=== PATIENT | male | born 1935 | race Caucasian/White ===

== ENCOUNTER 2023-03-07 07:04 | Inpatient (IN) | payer MEDICARE, OTHER ==
[~2023-03-07] VITALS: Ht 170 cm; Wt 77.2 kg
--- NOTE | 2023-03-07 07:04 | PM&R Post Admission Assessment ---
PM&R Date of Visit: Mar 07, 2023 Time of Visit: 12:30 History of Present Illness Chief complaint: Critical illness myopathy HPI: This is an 87-year-old male clinic patient of Dr Ortiz Zepeda in [place] who presents from [facility] following an extensive hospital stay which include acute hypoxic respiratory failure secondary to COVID with bilateral infiltrates status post intubation until extubated on 02/02/2023 transition to BiPAP who presents to the inpatient rehab unit in need of aggressive rehab. He has a history of esophageal stenosis with stricture status post EGD and dilatation on 12/10/2022. He is eating a regular diet. He does have a history of ischemic colitis but that seems to be stable. He does have atrial fibrillation on amiodarone and anticoagulation. Prior level of functioning was independent without any AD but currently he will require aggressive rehab in order to return back to somewhat near baseline. He is currently using oxygen. Past Wvospff-Nifjal-Pafknu Hx Past Med/Social Hx: Reviewed Nursing Past Med/Soc Hx, Reviewed and Corrections made Patient Social History Marrital Status: single Employed/Student: retired Alcohol Use: Denies Use Smoking Status: Never a Smoker Past Medical History Respiratory: Pneumonia Cardiac: Atrial Fibrillation, Chronic Edema/Swelling PM&R Allergy/Meds/Data Review Allergies Coded Allergies: No Allergy Information Available (Unverified , 03/07/23) Home Medications Scheduled Apixaban (Eliquis), 5 MG PO BID, (Reported) Metoprolol Tartrate (Lopressor), 25 MG PO Q8H, (Reported) Midodrine HCl (Midodrine HCl), 10 MG PO PRN Olanzapine (Zyprexa), 5 MG PO PRN Q 8 hrs Pantoprazole Sodium (Protonix), 40 MG PO DAILY, (Reported) Miscellaneous Medications Amiodarone HCl (Amiodarone HCl), 200 MG PO, (Reported) Lactobacillus Acidophilus/Pect (Acidophilus-Pectin Capsule), 1 EACH PO, (Reported) Mv-Mn/FA/Coq10/Lycopene/Lutein (Theragran-M Premier 50+ Caplet), 1 EACH PO, (Reported) Current Medications Current Medications Reviewed Review of Systems Constitutional: see HPI, malaise, weakness EENTM: no symptoms reported Respiratory: dyspnea on exertion, short of breath Cardiovascular: no symptoms reported Gastrointestinal: no symptoms reported Genitourinary: no symptoms reported Musculoskeletal: no symptoms reported Skin: no symptoms reported Psychiatric/Neurological: Anxiety, Depressed All Other Systems Reviewed Negative Unless Noted: Yes Physical Exam Physical Exam Vital Signs Capillary Refill : Height, Weight, BMI Height: '" Weight: lbs. oz. kg; BMI Method: General Appearance: No Apparent Distress, WD/WN, Chronically ill, Thin Eyes: Bilateral Eye Normal Inspection, Bilateral Eye PERRL HEENT: PERRL/EOMI, Normal ENT Inspection, Pharynx Normal Neck: Full Range of Motion, Normal Inspection, Non Tender, Supple, Carotid Bruit Respiratory: Chest Non Tender, Lungs Clear, No Accessory Muscle Use, No Respiratory Distress, Decreased Breath Sounds Cardiovascular: Regular Rate, Rhythm, No Edema, No Gallop, No JVD, No Murmur, Normal Peripheral Pulses Gastrointestinal: Normal Bowel Sounds, No Organomegaly, No Pulsatile Mass, Non Tender, Soft Back: Normal Inspection, No CVA Tenderness, No Vertebral Tenderness Extremity: Normal Capillary Refill, Normal Inspection, Normal Range of Motion, Non Tender, No Calf Tenderness, No Pedal Edema Neurologic/Psychiatric: Alert, Oriented x3, No Motor/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, 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 Norm as Tested, Abnormal Gait, Depressed Affect, Motor Weakness (Severe weakness of all extremities 3/5) Skin: Normal Color, Warm/Dry Lymphatic: No Adenopathy PM&R Medical Assessment & Plan REHAB/MEDICAL ASSESSMENT AND PLAN: REHAB IMPAIRMENT GROUP: Critical illness myopathy ETIOLOGIC DIAGNOSIS: Critical illness myopathy The comorbidities that impact the patients function and/or functional outcome by: atrial fibrillation, history of GI bleed, recent COVID, oxygen sup plementation required REHAB PLAN: The patient is being admitted to our comprehensive inpatient rehabilitation faci lity and can tolerate the intensity of service consisting of at least: 180 minutes of therapy a day, 5 out of 7 days a week Rehab treatment will consist of: PT and OT will focus on regaining function with use of assistive devices in order to increase stamina with ambulation and increased independence in ADLs and wean oxygen The patient/family has a good understanding of our discharge process and will benefit from an interdisciplinary inpatient rehabilitation program. The patient has potential to make improvement and is in need of at least two of the following multidisciplinary therapies including but not limited to physical, occupational, speech, and prosthetics and orthotics. Additionally the patient will need services from respiratory, nutritional services, wound care, psychology, etc. (Customize this to each patient). Given the patients complex condition and risk of further medical complications, rehabilitation services cannot be safely or effectively provided at a lower level of care such as a senior living facility. BARRIERS TO DISCHARGE: severe weakness ESTIMATED LOS: 10 days DISPOSITION: home RELEVANT CHANGES SINCE PREADMISSION SCREENING: I have compared the patients medical and functional status at the time of the preadmission screening and there are: no changes PROGNOSIS: good REHABILITATION GOALS: 1. PT and OT will focus on regaining function with use of assistive devices in order to increase stamina with ambulation and increased independence in ADLs and wean oxygen All the above goals were reviewed with the patient and he/she is in agreement. By signing this document, I acknowledge that I have personally performed a full physical examination on this patient within 24 hours [facility] and have determined the patient to be able to tolerate the above course of treatment at an intensive level for a reasonable period of time. I will be completing a detailed individualized Plan of Care for this patient by day #4 of the patients stay based upon the Preadmission Screen, the Post-Admission Evaluation, and the therapy evaluations. 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
[2023-03-07] MEDS ORDERED: ALPRAZolam 0.25 MG (XANAX) TAB PO PRN (07:15)
[2023-03-07] MEDS ORDERED: ACETAMINOPHEN 325 MG TABLET PO PRN (07:15)
[2023-03-07] MEDS ORDERED: DOCUSATE SODIUM 100 MG (COLACE) CAP PO PRN (07:15)
[2023-03-07] MEDS ORDERED: CALCIUM CARBONATE 500 MG (TUMS) TAB.CHEW PO PRN (07:15)
[2023-03-07] MEDS ORDERED: FLEET ENEMA ADULT 1 EA BTL PR PRN (07:15)
[2023-03-07] MEDS ORDERED: LOPERAMIDE 2 MG (IMODIUM) TABLET PO PRN (07:15)
[2023-03-07] MEDS ORDERED: BISACODYL 10 MG SUPP (DULCOLAX) PR PRN (07:15)
[2023-03-07] MEDS ORDERED: guaiFENesin/CODEINE (ROBITUSSIN AC) 10ML UDC PO PRN (07:15)
[2023-03-07] MEDS ORDERED: LACTULOSE SYRUP 10GM/15ML (ENULOSE) 30ML UDC PO PRN (07:15)
[2023-03-07] MEDS ORDERED: diphenhydrAMINE 25 MG TAB (BENADRYL) PO PRN (07:15)
[2023-03-07] MEDS ORDERED: MELATONIN 3 MG TABLET PO PRN (07:15)
[2023-03-07] MEDS ORDERED: ONDANSETRON 4 MG (ZOFRAN) ORAL DISSOLVE TAB PO PRN (07:15)
--- OUTSIDE RECORDS SUMMARY | 2023-03-07 08:01 | XMS REPORT ---
Author Author Department [facility] ROBBI hartley Organization Department of [facility] rs Address Unknown Phone Unavailable Support Name Relationship Address Phone [place] Next Of Kin Unknown LETTY GARIBAY ECON Unknown Insurance Providers: All historical and current Section Date Range: From patient's date of to the date document was create d. This section includes the names of all active insurance providers for the [place] Insurance Provider Type of Coverage Plan Name Start of Policy Co verage End of Policy Coverage Group Number Member ID Insurance Provider's Telephone N umber Policy Perez's Name Patient's Relationship to Policy Perez MEDICARE (WNR) MEDICARE (M) PART A Jul 08, 1998 PART A [id number] [phone] THU GARIBAY PATIENT MEDICARE (WNR) MEDICARE (M) PART B Jul 08, 1998 PART B [id number] [phone] THU GARIBAY PATIENT MEDICARE (WNR) MEDICARE (M) PART A Jul 08, 1998 PART A [id number] THU GARIBAY PATIENT MEDICARE (WNR) MEDICARE (M) PART B Jul 08, 1998 PART B [id number] THU GARIBAY PATIENT MEDICARE (WNR) MEDICARE (M) PART B Jul 08, 1998 PART B [id number] [phone] GARIBAYROBBI CLEMENT PATIENT MEDICARE (WNR) MEDICARE (M) PART A Jul 08, 1998 PART A [id number] [phone] ROBBI GARIBAY PATIENT [id number] FOR LIFE Nov 02, 2008 [facility] CARE FOR LIFE [id number] ROBBI GARIBAY PATIENT [id number] MTF DIRECT CARE Nov 02, 2008 [facility] DIRECT CARE [id number] ROBBI GARIBAY PATIENT Selected Encounter This section includes the information on record at MD for the Encounter. Date/Time Encounter Type Encounter Description Reason Provider Source Mar 18, 2022 11:15 AM Outpatient Encounter PRIMARY CARE/MEDICINE IHE Encounter Template Text not used by MD Assessments - Encounter Diagnoses No Data Provided for This Section Plan of Treatment: Future Appointments (+ 6 months) and Future Tests (+/- 45 day s) The Plan of Treatment section includes future care activities for the p atient from all MD treatment facilities. This section includes future appointmen ts and future orders which are active, pending or scheduled. Future Appointments This section includes appointments that were scheduled t o occur 6 months from the date of the Encounter, up to a maximum of 20 appointme nts. The data comes from all MD treatment facilities. Appointment Date/Time Appointment Type Appointment Facili ty Name Mar 20, 2022 08:15 AM AMBULATORY - NONE [facility] Mar 20, 2022 11:00 AM AMBULATORY - MEDICINE [facility] Sep 18, 2022 08:30 AM AMBULATORY [facility] Sep 18, 2022 09:30 AM AMBULATORY MEDICINE [facility] Sep 18, 2022 10:30 AM [facility] MEDICINE [facility] Surgical Procedures: All associated to the encounter No Data Provided for This Section Lab Results: +/- 30 days of the encounter This section includes the Chemistry and Hematology Lab R esults on record with MD for the patient. Radiology Reports and Pathology Report s are provided separately, in subsequent sections. Lab Results This section contains the Chemistry/Hematology Results gm t were resulted 30 days before or 30 days after the date of the Encounter. Date/Time Source Result Type Result - Unit Interpretation Reference Range Comment Mar 20, 2022 09:30 AM [facility] URINALYSIS Specimen Type: URINE No comment entered. Ordering Provider: TITUS MARIN Report Released Date/Time: Mar 20, 2022 08:18 AM Reporting Lab: [address] [id number] Performing Lab: [address] [address] UA COLOR STRAW COLORLESS-YELLOW UA SPEC GRAV 1.014 1.005-1.035 UA PH 6.0 5-9 UA NITRITE NEG Neg.-Neg UA UROBILINOGEN <2.0 -Normal: <2 mg -dL UA APPEARANCE - CLEAR UA GLUCOSE NORMAL NEG-TRACE UA PROTEIN - NEG UA BILI - NEG UA BLOOD - NEG-TRACE UA KETONES - NEG-TRACE UA LEUK EST NEG. NEG-74 Mar 20, 2022 07:56 AM [facility] TSH (FV) Specimen Type: SERUM No comment entered. Ordering Provider: TITUS MARIN Report Released Date/Time: Mar 18, 2022 12:47 PM Reporting Lab: [facility] [address] [place] [address] Performing Lab: [facility] [address] [place] [address] TSH () 2.33 0.45-5.33 Mar 20, 2022 07:56 AM [facility] LIPID PROFILE () Specimen Type: SERUM No comment entered. Ordering Provider: TITUS MARIN Report Released Date/Time: Mar 18, 2022 12:47 PM Reporting Lab: [address] [phone] Performing Lab: [address] [address] CHOLESTEROL, TOTAL (FV) 179 118-20 0 TRIGLYCERIDE (FV) 53 <150 LDL CHOLESTEROL (CALCULATED) 123 S ee_Comment HDL CHOLESTEROL (FV) 45 >40 Mar 20, 2022 07:56 AM [facility] CBC (FV) Specimen Type: BLOOD No comment entered. Ordering Provider: TITUS MARIN Report Released Date/Time: Mar 18, 2022 12:47 PM Reporting Lab: [address] [phone] Performing Lab: [address] [address] RDW (FV) 13.9 11.5-14.5 HCT (FV) 42.7 40-52 HGB (FV) 14.5 13-18 PLT (FV) 154 150-440 WBC (FV) 5.7 3.8-10.6 RBC (FV) 4.61 4.4-5.9 MCV (FV) 92.7 80-100 MCH (FV) 31.5 26-34 MCHC (FV) 34.0 32-36 NE% (FV) 56.0 SEE ABSOLUTE # NE# (FV) 3.2 2.4-7.6 LY% (FV) 22.2 SEE ABSOLUTE # LY# (FV) 1.3 1.0-4.8 MO% (FV) 16.4 SEE ABSOLUTE # MO# (FV) 0.9 0.1-1.0 EO% (FV) 4.4 SEE ABSOLUTE # EO# (FV) 0.2 0.0-0.4 BA% (FV) 1.0 SEE ABSOLUTE # BA# (FV) 0.1 0.0-0.2 Mar 20, 2022 07:56 AM [facility] RENAL+LIVER PROFILE Specimen Type: SERUM No comment entered. Ordering Provider: TITUS MARIN Report Released Date/Time: Mar 18, 2022 12:47 PM Reporting Lab: [address] [id number] Performing Lab: [address] [address] GLUCOSE (FV) 96 70-110 ALBUMIN (FV) 4.2 3.4-5.0 AST (FV) 20 15-37 TOTAL BILIRUBIN (FV) 1.13 0.3-1.2 CHLORIDE (FV) 103 98-107 TOTAL PROTEIN (FV) 7.3 6.1-7.9 SODIUM (FV) 136 136-145 POTASSIUM (FV) 4.5 3.5-5.1 CO2 (FV) 25 21-32 UREA NITROGEN (FV) 13 6-20 CALCIUM (FV) 9.2 8.9-10.3 ALT (FV) 14 0-63 ALK. PHOS. (FV) 62 32-126 CREATININE (FV) 0.64 .61-1.24 eGFR (CKD-EPI 2020) >90 >90 Mar 20, 2022 07:56 AM [facility] VITAMIN B12 Specimen Type: SERUM No comment entered. Ordering Provider: TITUS MARIN Report Released Date/Time: Mar 18, 2022 12:47 PM Reporting Lab: [place] [facility] [address] [facility] [address] Performing Lab: [facility] [address] [place] [address] VITAMIN B12 (FV) 322 180-914 Vital Signs: All taken on the encounter date No Data Provided for This Section Immunizations: All administered on the encounter date No Data Provided for This Section Social History: Smoking Status (Most current) and Tobacco Use (All prior to enco unter date) No Data Provided for This Section Advance Directives: All historical and current No Data Provided for This Section Radiology Reports: +/- 30 days of the encounter No Data Provided for This Section Pathology Reports: +/- 30 days of the encounter No Data Provided for This Section Encounter Notes: All associated encounter notes This section contains the clinical notes associated to the Encounter. Date/Time Encounter Note(s) Provider Source Mar 18, 2022 11:15 AM ADMINISTRATIVE NOTE: LOCAL TITLE: ADMINISTRATIVE NOTE STANDARD TITLE: ADMINISTRATIVE NOTE DATE OF NOTE: MAR 18, 2022@11:15 ENTRY DATE: MAR 18, 2022@11:15:09 AUTHOR: NU DELGADO EXP COSIGNER: URGENCY: STATUS: COMPLETED is scheduled for fasting labs 03/20/22-- needing lab orders placed, please and thank you /loki/ NU DELGADO Signed: 03/18/2022 11:15 Receipt Acknowledged By: * AWAITING SIGNATURE * TITUS MARIN TANYA [facility]
--- OUTSIDE RECORDS SUMMARY | 2023-03-07 08:02 | XMS REPORT | Encounter Summary ---
Author Author Department [facility] ROBBI hartley Organization Department of [facility] rs Address Unknown Phone [...] PART A Jul 08, 1998 PART A [id number] [phone] THU GARIBAY PATIENT MEDICARE (WNR) MEDICARE (M) PART B Jul 08, 1998 PART B [id number] [phone] THU GARIBAY PATIENT MEDICARE (WNR) MEDICARE (M) PART A Jul 08, 1998 PART A [id number] THU GARIBAY PATIENT MEDICARE (WNR) MEDICARE (M) PART B Jul 08, 1998 PART B [id number] THU GARIBAY PATIENT MEDICARE (WNR) MEDICARE (M) PART B Jul 08, 1998 PART B [id number] 57A [phone] GARIBAYROBBI CLEMENT PATIENT MEDICARE (WNR) MEDICARE (M) PART A Jul 08, 1998 PART A [id number] [phone] ROBBI GARIBAY PATIENT [id number] FOR LIFE Nov 02, 2008 [facility] CARE FOR LIFE [id number] ROBBI GARIBAY PATIENT [id number] MTF DIRECT CARE Nov 02, 2008 [facility] DIRECT CARE [id number] ROBBI GARIBAY PATIENT Selected Encounter This section includes the information on record at [place] for the Encounter. Date/Time Encounter Type Encounter Description Reason Provider Source Mar 20, 2022 12:00 AM Outpatient Encounter EVENT (HISTORICAL) IHE Encounter Template Text not used by [place] Assessments - Encounter Diagnoses No Data Provided for This Section Plan of Treatment: Future Appointments (+ 6 months) and Future Tests (+/- 45 day s) The Plan of Treatment section includes future care activities for the p atient from all [place] treatment facilities. This section includes future appointmen ts and future orders which are active, pending or scheduled. Future Appointments This section includes appointments that were scheduled t o occur 6 months from the date of the Encounter, up to a maximum of 20 appointme nts. The data comes from all [place] treatment facilities. Appointment Date/Time Appointment Type Appointment Facili ty Name Sep 18, 2022 08:30 AM AMBULATORY - [facility] Sep 18, 2022 09:30 AM AMBULATORY - MEDICINE [facility] Sep 18, 2022 10:30 AM AMBULATORY - MEDICINE [facility] Surgical Procedures: All associated to the encounter No Data Provided for This Section Lab Results: +/- 30 days of the encounter This section includes the Chemistry and Hematology Lab R esults on record with [place] for the patient. Radiology Reports and Pathology Report s are provided separately, in subsequent sections. Lab Results This section contains the Chemistry/Hematology Results gm t were resulted 30 days before or 30 days after the date of the Encounter. Date/Time Source Result Type Result - Unit Interpretation Reference Range Comment Mar 20, 2022 09:30 AM [facility] URINALYSIS Specimen Type: URINE No comment entered. Ordering Provider: TITUS MARIN Report Released Date/Time: Mar 20, 2022 08:18 AM Reporting Lab: [address] [id number] Performing Lab: [address] [address] UA COLOR STRAW COLORLESS-YELLOW UA SPEC GRAV 1.014 1.005-1.035 UA PH 6.0 5-9 UA NITRITE NEG Neg.-Neg UA UROBILINOGEN <2.0 -Normal: <2 mg -dL UA APPEARANCE - CLEAR UA GLUCOSE NORMAL NEG-TRACE UA PROTEIN - NEG UA BILI - NEG UA BLOOD - NEG-TRACE UA KETONES - NEG-TRACE UA LEUK EST NEG. NEG-74 Mar 20, 2022 07:56 AM [facility] LIPID PROFILE (FV) Specimen Type: SERUM No comment entered. Ordering Provider: TITUS MARIN Report Released Date/Time: Mar 18, 2022 12:47 PM Reporting Lab: [address] [phone] Performing Lab: [address] [address] CHOLESTEROL, TOTAL (FV) 179 118-20 0 TRIGLYCERIDE (FV) 53 <150 LDL CHOLESTEROL (CALCULATED) 123 S ee_Comment HDL CHOLESTEROL (FV) 45 >40 Mar 20, 2022 07:56 AM [facility] TSH (FV) Specimen Type: SERUM No comment entered. Ordering Provider: TITUS MARIN Report Released Date/Time: Mar 18, 2022 12:47 PM Reporting Lab: [facility] [address] [place] [id number] Performing Lab: [facility] [address] [place] [address] TSH (FV) 2.33 0.45-5.33 Mar 20, 2022 07:56 AM [facility] CBC (FV) Specimen Type: BLOOD No comment entered. Ordering Provider: TITUS MARIN Report Released Date/Time: Mar 18, 2022 12:47 PM Reporting Lab: [address] [phone] Performing Lab: [address] [address] RDW (FV) 13.9 11.5-14.5 HCT (FV) [...] 0.1 0.0-0.2 Mar 20, 2022 07:56 AM [facility] RENAL+LIVER PROFILE Specimen Type: SERUM No comment entered. Ordering Provider: TITUS MARIN Report Released Date/Time: Mar 18, 2022 12:47 PM Reporting Lab: [address] [id number] Performing Lab: [address] [address] GLUCOSE (FV) 96 70-110 ALBUMIN (FV) [...] >90 >90 Mar 20, 2022 07:56 AM [facility] VITAMIN B12 Specimen Type: SERUM No comment entered. Ordering Provider: TITUS MARIN Report Released Date/Time: Mar 18, 2022 12:47 PM Reporting Lab: [facility] [address] [place] [id number] Performing Lab: [facility] [address] [place] [id number] VITAMIN B12 (FV) 322 504-91 Vital Signs: All taken on the encounter [...] Section Encounter Notes: All associated encounter notes No Data Provided for This Section
--- OUTSIDE RECORDS SUMMARY | 2023-03-07 08:02 | XMS REPORT | Encounter Summary ---
Author Author Department [facility] ROBBI hartley Organization Department [facility] rs Address Unknown Phone Unavailable Support Name [...] PART A Jul 08, 1998 PART A [id number] [phone] THU GARIBAY PATIENT MEDICARE (WNR) MEDICARE (M) PART B Jul 08, 1998 PART B [id number] [phone] THU GARIBAY PATIENT MEDICARE (WNR) MEDICARE (M) PART A Jul 08, 1998 PART A [id number] THU GARIBAY PATIENT MEDICARE (WNR) MEDICARE (M) PART B Jul 08, 1998 PART B [id number] THU GARIBAY PATIENT MEDICARE (WNR) MEDICARE (M) PART B Jul 08, 1998 PART B [id number] [phone] GARIBAYROBBI CLEMENT PATIENT MEDICARE (WNR) MEDICARE (M) PART A Jul 08, 1998 PART A [id number] [phone] ROBBI GARIBAY PATIENT [id number] FOR LIFE Nov 02, 2008 [facility] CARE FOR LIFE [id number] ROBBI GARIBAY PATIENT [id number] [facility] DIRECT CARE Nov 02, 2008 [facility] [id number] ROBBI GARIBAY PATIENT Selected Encounter This section includes the information on record at [place] for the Encounter. Date/Time Encounter Type Encounter Description Reason Provider Source Mar 20, 2022 11:00 AM OFFICE O/P EST MOD 30-39 MIN PRIMARY CARE/ MEDICINE ICD-10-CM I48.91 Unspecified atrial fibrillation with Provider Comments: Atrial fibrillation ([facility] [id number]) TITUS MARIN Trang Encounter Template Text not used by [place] Assessments - Encounter Diagnoses This section includes the primary and secondary diag noses documented for the Encounter. Date/Time Primary/Secondary Diagnosis Diagnosis Name Provider Source Mar 20, 2022 11:52 AM PRIMARY Unspecified atrial fibrillation TITUS MARINDOT [facility] Mar 20, 2022 11:52 AM SECONDARY Essential (primary) hypertension [facility] Mar 20, 2022 11:52 AM SECONDARY Hyperlipidemia, unspecified TITUS MARIN [facility] Plan of Treatment: Future Appointments (+ 6 months) and Future Tests (+/- 45 day s) The Plan of Treatment section includes [facility] [place] treatment facilities. This section includes future appointmen ts and future orders which are active, pending or scheduled. Future Appointments This section includes appointments that were scheduled t o occur 6 months from the date of the Encounter, up to a maximum of 20 appointme nts. The data comes from all [place] treatment facilities. Appointment Date/Time Appointment Type Appointment Facili ty Name Sep 18, 2022 08:30 AM [facility]ATORY [facility] Sep 18, 2022 09:30 AM AMBULATORY - MEDICINE [facility] Sep 18, 2022 10:30 AM AMBULATORY - MEDICINE [facility] Surgical Procedures: All associated to the encounter No Data Provided for This Section Lab Results: +/- 30 days of the encounter This section includes the Chemistry and Hematology Lab R esults on record with MI for the patient. Radiology Reports and Pathology Report s are provided separately, in subsequent sections. Lab Results This section contains the Chemistry/Hematology Results gm t were resulted 30 days before or 30 days after the date of the Encounter. Date/Time Source Result Type Result - Unit Interpretation Reference Range Comment Mar 20, 2022 09:30 AM [facility] URINALYSIS Specimen Type: URINE No comment entered. Ordering Provider: TITUS MARIN Report Released Date/Time: Mar 20, 2022 08:18 AM Reporting Lab: [address] [id number] Performing Lab: [address] [id number] UA COLOR STRAW COLORLESS-YELLOW UA SPEC GRAV 1.014 1.005-1.035 UA PH 6.0 5-9 UA NITRITE NEG Neg.-Neg UA UROBILINOGEN <2.0 -Normal: <2 mg -dL UA APPEARANCE - CLEAR UA GLUCOSE NORMAL NEG-TRACE UA PROTEIN - NEG UA BILI - NEG UA BLOOD - NEG-TRACE UA KETONES - NEG-TRACE UA LEUK EST NEG. NEG-74 Mar 20, 2022 07:56 AM [facility] TSH (FV) Specimen Type: SERUM No comment entered. Ordering Provider: TITUS MARIN Report Released Date/Time: Mar 18, 2022 12:47 PM Reporting Lab: [facility] [address] [place] [id number] Performing Lab: [facility] [address] [place] [address] TSH () 2.33 0.45-5.33 Mar 20, 2022 07:56 AM [facility] LIPID PROFILE (FV) Specimen Type: SERUM No comment entered. Ordering Provider: TITUS MARIN Report Released Date/Time: Mar 18, 2022 12:47 PM Reporting Lab: [address] [id number] Performing Lab: [address] [id number] CHOLESTEROL, TOTAL (FV) 179 118-20 0 TRIGLYCERIDE (FV) 53 <150 LDL CHOLESTEROL (CALCULATED) 123 S ee_Comment HDL CHOLESTEROL (FV) 45 >40 Mar 20, 2022 07:56 AM [facility] CBC (FV) Specimen Type: BLOOD No comment entered. Ordering Provider: TITUS MARIN Report Released Date/Time: Mar 18, 2022 12:47 PM Reporting Lab: [address] [id number] Performing Lab: [address] [id number] RDW (FV) 13.9 11.5-14.5 HCT (FV) [...] 0.1 0.0-0.2 Mar 20, 2022 07:56 AM [facility] RENAL+LIVER PROFILE Specimen Type: SERUM No comment entered. Ordering Provider: TITUS MARIN Report Released Date/Time: Mar 18, 2022 12:47 PM Reporting Lab: [address] [id number] Performing Lab: [address] [id number] GLUCOSE (FV) 96 70-110 ALBUMIN (FV) [...] >90 >90 Mar 20, 2022 07:56 AM [facility] VITAMIN B12 Specimen Type: SERUM No comment entered. Ordering Provider: TITUS MARIN Report Released Date/Time: Mar 18, 2022 12:47 PM Reporting Lab: [facility] [address] [facility] [address] Performing Lab: [facility] [address] [facility] [address] VITAMIN B12 () 322 180-914 Vital Signs: All taken on the encounter date This section contains inpatient and outpatient Vital Signs collected on the date of the Encounter. Date/Time Temperature Pulse Blood Pressure Respiratory Rate SP02 Pa in Height Weight Body Mass Index Source Mar 20, 2022 12:56 PM 0 [facility] Mar 20, 2022 11:20 AM 138/70 mm[Hg] [facility] Mar 20, 2022 11:09 AM 98.1 F 88 /min 149/74 mm[Hg] 20 /min 97 % 0 67 in 174.4 lb 27 [facility] Immunizations: All administered on the encounter date No Data Provided for This Section Social History: Smoking Status (Most current) and Tobacco Use (All prior to enco unter date) This section includes the most current, and the historical, smoking a nd tobacco-related health factors from the [place] facility where the Encounter took place. Current Smoking Status This section includes the most current smoking, or tobacco -related health factor, from the [place] facility where the Encounter took place. Date/Time Current Smoking Status Comment Facility Mar 20, 2022 11:00 AM VA-TOBACCO FORMER USER [facility] [place] Tobacco Use History This section includes a history of the smoking, or tobacco -related health factors, that were collected on or before the date of the Encoun ter. The data comes from the [place] facility where the Encounter took place. Date/Time Smoking Status/Tobacco Use Comment [facility] Mar 20, 2022 11:00 AM MI-TOBACCO QUIT 15 YRS OR MORE [facility] Mar 13, 2021 10:00 AM VA-TOBACCO FORMER USER [facility] [place] Mar 13, 2021 10:00 AM VA-TOBACCO QUIT 15 YRS OR MORE [facility] Dec 04, 2018 09:50 AM V16 TOBACCO USE SCREEN [facility] Dec 04, 2018 09:50 AM MI-TOBACCO FORMER USER [facility] Dec 04, 2018 09:50 AM MI-TOBACCO QUIT 15 YRS OR MORE [facility] Advance Directives: All historical and current No Data Provided for This Section Radiology Reports: +/- 30 days of the encounter No Data Provided for This Section Pathology Reports: +/- 30 days of the encounter No Data Provided for This Section Encounter Notes: All associated encounter notes This section contains the clinical notes associated to the Encounter. Date/Time Encounter Note(s) Provider Source Mar 20, 2022 11:52 AM MEDICATION MGT NOTE: LOCAL TITLE: MEDICATION RECONCILIATION (PROVIDER) STANDARD TITLE: MEDICATION MGT NOTE DATE OF NOTE: MAR 20, 2022@11:52 ENTRY DATE: MAR 20, 2022@11:52:14 AUTHOR: TITUS MARIN COSIGNER: URGENCY: STATUS: COMPLETED Medication Reconciliation COMPLETED (Outpatient): NO medication additions, deletions, dosage changes OR duplications were identified. This Medication Reconciliation note and Patient Medication Information Cover Sheet were reviewed with the patient and/or caregiver and all questions answered. A copy of this note was given to or mailed to patient and/or caregiver at the end of this visit. Remote and Local Allergies: FACILITY ALLERGY/ADR -------- No Remote Allergy/ADR Data available for this patient [facility] No Known Allergies A list of active and pending outpatient prescriptions dispensed from this local [place] and dispensed remotely from another MI or DoD facility as well as local, pending and active inpatient orders, local clinic medications, locally documented non-VA medications, and local prescriptions that have or been discontinued in the past 90 days has been generated below. If the list for review does not include a component, then it was not applicable to this patient. Active Outpatient Medications (excluding Supplies): Active Outpatient Medications Status 1) DICLOFENAC 1% GEL,TOP APPLY 2 GRAMS TOPICALLY FOUR ACTIVE TIMES DAILY NEEDED FOR PAIN & INFLAMMATION-DON'T EXCEED 16 GRAMS DAILY TO ANY AFFECTED JOINT OF THE LOWER EXTREMITIES. DON'T EXCEED 8 GRAMS DAILY TO ANY AFFECTED JOINT OF THE UPPER EXTREMITIES. DON'T EXCEED A TOTAL DOSE OF 32 GRAMS DAILY OVER ALL JOINTS 2) OMEPRAZOLE 20MG EC CAP TAKE ONE CAPSULE BY MOUTH ONCE ACTIVE DAILY FOR THE STOMACH Pending Outpatient Medications Status 1) GABAPENTIN 100MG CAP TAKE ONE CAPSULE BY MOUTH AT PENDING BEDTIME -(MAY CAUSE DROWSINESS) Active Non-VA Medications Status 1) Non-VA AMLODIPINE 10MG TAB 5MG MOUTH ONCE DAILY ACTIVE 2) Non-VA APIXABAN 5MG TAB 5MG MOUTH TWICE A DAY ACTIVE 3) Non-VA CLOPIDOGREL 75MG TAB 75MG MOUTH ONCE DAILY ACTIVE 4) Non-VA LISINOPRIL 10MG TAB 10MG MOUTH EVERY MORNING ACTIVE 5) Non-VA METOPROLOL TARTRATE 100MG TAB 50MG MOUTH ONCE ACTIVE DAILY 6) Non-VA NON-VA DRUG ASSESSMENT DONE CAP/TAB MOUTH ACTIVE 9 Total Medications No Active Remote Medications for this patient /es/ TITUS MARIN APN [facility] Signed: 03/20/2022 11:52 TIT[facility] MARIN [facility] Mar 20, 2022 11:38 AM PRIMARY CARE PHYSICIAN NOTE: LOCAL TITLE: PRIMARY CARE/PROVIDER STANDARD TITLE: PRIMARY CARE PHYSICIAN NOTE DATE OF NOTE: MAR 20, 2022@11:38 ENTRY DATE: MAR 20, 2022@11:38:55 AUTHOR: TITUS MARIN EXP COSIGNER: URGENCY: STATUS: COMPLETED Active Outpatient Medications (including Supplies): Active Outpatient Medications Status 1) DICLOFENAC 1% GEL,TOP APPLY 2 GRAMS TOPICALLY FOUR ACTIVE TIMES DAILY NEEDED FOR PAIN & INFLAMMATION-DON'T EXCEED 16 GRAMS DAILY TO ANY AFFECTED JOINT OF THE LOWER EXTREMITIES. DON'T EXCEED 8 GRAMS DAILY TO ANY AFFECTED JOINT OF THE UPPER EXTREMITIES. DON'T EXCEED A TOTAL DOSE OF 32 GRAMS DAILY OVER ALL JOINTS 2) OMEPRAZOLE 20MG EC CAP TAKE ONE CAP PETER BY MOUTH ONCE ACTIVE DAILY FOR THE STOMACH Active Non-VA Medications Status 1) Non-VA AMLODIPINE 10MG TAB 5MG MOUT H ONCE DAILY ACTIVE 2) Non-VA APIXABAN 5MG TAB 5MG MOUTH T WICE A DAY ACTIVE 3) Non-VA CLOPIDOGREL 75MG TAB 75MG MO UTH ONCE DAILY ACTIVE 4) Non-VA LISINOPRIL 10MG TAB 10MG MARVIN TH EVERY MORNING ACTIVE 5) Non-VA METOPROLOL TARTRATE 100MG TA B 50MG MOUTH ONCE ACTIVE DAILY 6) Non-VA NON-VA DRUG ASSESSMENT DONE CAP/TAB MOUTH ACTIVE 8 Total Medications ALLERGIES: Patient has answered NKA From Nurses NOTE: "SUBJECTIVE: Here for RTC with labs done Medications reveiwed with updates and renewals sent to provider. Local providers: Dr. Marks (PCP), Dr. Velazco (cardio), Dr. Ordonez (cardiothoracic), Dr. Arriaga (urology) Would like to discuss: itchy head, nerve issue with the left side of neck What things in your life are causing you stress or worry, that need to be taken care of today? none Depression: No Suicidal: No Accompanied By: Alone On Arrival: Ambulatory Mobility changes in the past 3 months? No " HPI: ROBBI GARIBAY, 86 year old, MALE presents with chief complaint as above. Tobacco - denies use ETOH - denies use Illicit drugs - denies use Pt. reports TAVR for aortic valve replacement in the past year. PERTINANT REVIEW OF SYSTEMS: GENERAL: Appetite good, no significant weight change HEENT: No significant change or complaints HEART: No chest pain or palpitations LUNGS: No Shortness of breath Denies cough Gastrointestinal: No abdominal pain, bowel movements unchanged Genital/Urinary: No dysuria, hematuria, or change in frequency of urination MUSCULOSKELETAL: Normal ROM; reports he will have itching/neuropathy pain in he face and head on the left side. States he had neck surgery 7 years ago. Wonders if this is due to his surgery. SKIN: Denies rash, open wounds or nonhealing sores PSY: Mood stable; denies SI/HI. VITALS: DATE/TIME TEMP PULSE RESP BP PAIN WEIGHT 03/20/22 @ 1109 98.1 88 20 149/74 0 174.4 GENERAL: Appears stated age w/NAD; Alert and oriented x 3. PSYCH: Appropriate thought content. Mood appropriate. NEURO: Easily follows commands. Cranial Nerves: II-XII intact. Sensory: Grossly intact. No focal deficits noted. HEENT: Conjunctiva non-icteric. Extra ocular motions appear intact. Periorbital areas with no edema or redness. Oropharynx clear. Ear canals clear. NECK: Trachea midline. No JVD at 90 degrees. Carotids with no bruits. No thyroidmegaly or masses palpated. HEART: RRR, no gallops or rubs, no murmur. LUNGS: No resp distress noted. CTA with no wheezes, rhonchi, or rales. ABDOMEN: Soft, nontender with normal bowel sounds. NO organomegaly or masses. EXT: No cyanosis, clubbing, edema. Pedal pulses present, gross visual inspection wnl. Full ROM with all extremities. Posture: erect/upright Gait: smooth BACK: No spinal tenderness. SKIN: No rash or jaundice. Warm, dry with normal turgor for age. Normal color with capillary refill within 2 seconds. TODAY'S LAB RESULTS: Pending UR COLOR: STRAW SPECIFIC GRAVITY: 1.014 UR PH: 6.0 NITRITE, URINE: NEG UROBILINOGEN (FAV) (01-05-08): <2.0 UA APPEARANCE (04-01-11): - UA GLUCOSE (07-12-19): NORMAL UA PROTEIN (07-12-19): - UA BILI (07-12-19): - UA BLOOD (07-12-19): - UA KETONES (NEW): - UA LEUK EST (07-12-19): NEG. dGLUCOSE: 96 dALBUMIN: 4.2 dAST: 20 dBILIRUBIN, TOTAL: 1.13 dCHLORIDE: 103 dCHOLESTEROL, TOTAL: 179 dPROTEIN, TOTAL: 7.3 dSODIUM #3: 136 dPOTASSIUM #3: 4.5 dCO2 #3: 25 UREA NITROGEN (CHERYL): 13 CALCIUM (CHERYL): 9.2 TRIGLYCERIDE (CHERYL): 53 ALT (CHERYL)2: 14 ALP (CHERYL)2: 62 LDL CHOL (CALC): 123 CREATININE (09-12-08) FAV: 0.64 HDL, CHOLESTEROL (12-12-10): 45 eGFR (10-21-21): >90 RDW: 13.9 HCT (01-19-09): 42.7 HGB (01-19-09): 14.5 PLT (01-19-09): 154 WBC (12-06-09): 5.7 RBC (12-06-09): 4.61 MCV (12-06-09): 92.7 MCH (12-06-09): 31.5 MCHC (12-06-09): 34.0 NE% (12-06-09): 56.0 NE# (12-06-09): 3.2 LY% (12-06-09): 22.2 LY# (12-06-09): 1.3 MO% (12-06-09): 16.4 MO# (12-06-09): 0.9 EO% (12-06-09): 4.4 EO# (12-06-09): 0.2 BA% (12-06-09): 1.0 BA# (12-06-09): 0.1 ASSESSMENT/PLAN: 1. Atrial fibrillation - continue apixib an as ordered 2. Knee Joint replacement Status (Prosth etic or Artificial Device) - stable Left April 2010 3. Hypertension (SNOMED CT 79399704) - b /p at goal 4. Hyperlipidemia (SNOMED CT 83816588) - LDL improved; above goal; considerin Takes Fish Oil 5. Hypertrophy (Benign) of Prostate with out Urinary obstruction Noctauria 6. Osteoarthritis (SNOMED CT 496320378) Spine and in small joints. 7. Neuralgia of face - gabapentin 100mg po at HS ordered. The patients medical condition(s), new medication(s), and common side effects, were discussed. The patient expressed understanding and is aware to contact us if any further questions. Follow Up: 1. RTC in 6 months with Renal, Liver, Li pid, CBC, A1C microalbumin, UA PATIENT EDUCATION: (x)Diet and Exercise: Heart healthy diet , Moderate exercise such as walking 30 minutes 5 times per week (x)Medications including instructions, b enefits and side effects: reviewed and discussed all medications (x)Lab results: Reviewed with patient Colonoscopy GAP Reminder: Recommendations are needed in the clinical reminder system following the patient's most recent colorectal cancer screening/surveillance test (Colonoscopy, Sigmoidoscopy or CT Colonography) Patient has arranged or is choosing to arrange this testing independent of and w/out assistance from this MI Patient is at average risk for colorectal cancer. /loki/ TITUS MARIN APN [facility]IMARY [facility] Signed: 03/20/2022 11:52 TITUS MARINDOT [facility] Mar 20, 2022 11:22 AM EDUCATION NOTE: LOCAL TITLE: AFTER VISIT SUMMARY NOTE STANDARD TITLE: EDUCATION NOTE DICT DATE: MAR 20, 2022@11:22:14 ENTRY DATE: MAR 20, 2022@11:22:14 DICTATED BY: TITUS MARIN EXP COSIGNER: URGENCY: STATUS: COMPLETED The patient was provided with a copy of an after-visit summary at the conclusion of the visit. The after-visit summary includes information pertaining to the patient's encounter, including diagnoses, vital signs, medications, and new orders, as well as a list of any any upcoming appointments and information regarding the patient's ongoing care. The patient's medications were reviewed with the patient by the provider and were provided to the patient as an updated list of medications. The patient was instructed to inform the provider of any medication changes or discrepancies that were noted. Otherwise, the patient was instructed to continue the medications as prescribed. A copy of the after-visit summary provided to the patient is available in [facility]. SCANNED DOCUMENT SIGNATURE NOT REQUIRED Electronically Filed: 03/20/2022 by: NAOMI HAWKINS LPN PRIMARY CARE [facility] Mar 20, 2022 11:16 AM PRIMARY CARE NURSING NOTE: LOCAL TITLE: PRIMARY CARE/NURSE STANDARD TITLE: PRIMARY CARE NURSING NOTE DATE OF NOTE: MAR 20, 2022@11:16 ENTRY DATE: MAR 20, 2022@11:16:39 AUTHOR: NAOMI HAWKINS EXP COSIGNER: URGENCY: STATUS: COMPLETED PRIMARY CARE/NURSE Has ADDENDA BP: 149/74 (03/20/2022 11:09) Pain: 0 (03/20/2022 11:09) Height: 67 in [170.2 cm] (03/20/2022 11:09) Weight: 174.4 lb [79.11 kg] (03/20/2022 11:09) Pulse: 88 (03/20/2022 11:09) Respiration: 20 (03/20/2022 11:09) Temperature: 98.1 F [36.7 C] (03/20/2022 11:09) BMI: MAR 20, 2022@11:09:27 27.4 03/20/22 @ 1109 PULSE OXIMETRY: 97 SUBJECTIVE: Here for RTC with labs done Medications reveiwed with updates and renewals sent to provider. Local providers: Dr. Marks (PCP), Dr. Velazco (cardio), Dr. Ordonez (cardiothoracic), Dr. Arriaga (urology) Would like to discuss: itchy head, nerve issue with the left side of neck What things in your life are causing you stress or worry, that need to be taken care of today? none Depression: No Suicidal: No Accompanied By: Alone On Arrival: Ambulatory Mobility changes in the past 3 months? No Mental Status: Alert and oriented Do you have or use an assistive device? No Has patient had fall(s) in last 3 months? No, patient reports no fall(s) in last 3 months. Potential risks for falls identified. No Has the patient traveled outside the [place] within the past 30 days? No If yes, where has the patient traveled? Psychosocial Status: Indication of suspected abuse, neglect, or exploitation? No LAB TESTS SELECTED Collection DT Specimen Test Name Result Units Ref Range 03/20/2022 07:56 SERUM LDLc 123 mg/dL Ref: Optimal <100 LAB CUMULATIVE SELECTED 1 No selection items chosen for this component. OTHER MEDICATIONS (HERBALS, OTC's, etc): No Active Outpatient Medications (including Supplies): Active Outpatient Medications Status 1) DICLOFENAC 1% GEL,TOP APPLY 2 GRAMS TOPICALLY FOUR ACTIVE TIMES DAILY NEEDED FOR PAIN & INFLAMMATION-DON'T EXCEED 16 GRAMS DAILY TO ANY AFFECTED JOINT OF THE LOWER EXTREMITIES. DON'T EXCEED 8 GRAMS DAILY TO ANY AFFECTED JOINT OF THE UPPER EXTREMITIES. DON'T EXCEED A TOTAL DOSE OF 32 GRAMS DAILY OVER ALL JOINTS 2) OMEPRAZOLE 20MG EC CAP TAKE ONE CAP PETER BY MOUTH ONCE ACTIVE DAILY FOR THE STOMACH Active Non-VA Medications Status 1) Non-VA AMLODIPINE 10MG TAB 5MG MOUT H ONCE DAILY ACTIVE 2) Non-VA APIXABAN 5MG TAB 5MG MOUTH T WICE A DAY ACTIVE 3) Non-VA CLOPIDOGREL 75MG TAB 75MG MO UTH ONCE DAILY ACTIVE 4) Non-VA LISINOPRIL 10MG TAB 10MG MARVIN TH EVERY MORNING ACTIVE 5) Non-VA METOPROLOL TARTRATE 100MG TA B 50MG MOUTH ONCE ACTIVE DAILY 6) Non-VA NON-VA DRUG ASSESSMENT DONE CAP/TAB MOUTH ACTIVE 8 Total Medications HTN Assess for Elevated BP>=140/90: Repeat blood pressure: 138/70 /es/ NAOMI HAWKINS LPN PRIMARY CARE [facility] Signed: 03/20/2022 11:20 03/20/2022 ADDENDUM STATUS: COMPLETED Suicide Screen: C-SSRS Screening [place] Suicide Severity Rating Scale (C-SSRS) screener 1. Over the past month, have you wished you were or wished you could go to sleep and not wake up? No 2. Over the past month, have you had any actual thoughts of killing yourself? No 3. Over the past month, have you been thinking about how you might do this? Response not required due to responses to other questions. 4. Over the past month, have you had these thoughts and had some intention of acting on them? Response not required due to responses to other questions. 5. Over the past month, have you started to work out or worked out the details of how to kill yourself? Response not required due to responses to other questions. 6. If yes, at any time in the past month did you intend to carry out this plan? Response not required due to responses to other questions. 7. In your lifetime, have you ever done anything, started to do anything, or prepared to do anything to end your life (for example, collected pills, obtained a gun, gave away valuables, went to the roof but didn't jump)? No 8. If YES, was this within the past 3 months? Response not required due to responses to other questions. Frail Elderly Screening (Nurse): FALL SCREENING: Patient screened for fall(s) in past twelve (12) months: Patient reports no fall(s) in past twelve (12) months. Assistive device(s): Patient reports he/she does not use assistive device(s). [place] INDEX FOR ADL SCREENING: Perform Screening [place] Index of [place] in Activities of Daily Living was completed at this encounter. BATHING: Patient needs no supervision, direction or personal assistance with bathing. DRESSING: Patient needs no supervision, direction or personal assistance with dressing. TOILETING: Patient needs no supervision, direction or personal assistance with toileting. TRANSFERRING: Patient needs no supervision, direction or personal assistance with transferring. CONTINENCE: Patient needs no supervision, direction or personal assistance with continence. FEEDING: Patient needs no supervision, direction or personal assistance with feeding/eating. TOTAL POINTS: = [ 6 ] FULL FUNCTION (Independent) INSTRUMENTAL ACTIVITIES OF DAILY LIVING (IADL) SCALE (Zohra) Ability to use telephone: 1 point - Operates telephone on own initiative; looks up and dials numbers, etc. Shoppin point - Takes care of all shopping needs independently Food preparation: 1 point - Plans, prepares, and serves adequate meals independently Housekeepin point - Maintains house alone or with occasional assistance (e.g., "heavy work domestic help") Laundry: 1 point - Does personal laundry completely Mode of transportation: 1 point - Travels independently on public transportation or drives own car Responsibility for own medications: 1 point - Is responsible for taking medication in correct dosages at correct time Ability to handle finances: 1 point - Manages financial matters independently (budgets, writes checks, pays rent and bills, goes to bank), collects and keeps track of income SCORING: The total score may range from 0 - 8. A lower score indicates a higher level of dependence. Total score: 8 points URINARY INCONTINENCE SCREENING: Do you leak urine when you don't want to: [NO] Do you leak urine when you cough, laugh or exercise: [NO] Do you leak urine on the way to the bathroom: [NO] Ever use pads, tissue or cloth in underwear to catch urine: [NO] Patient has a NEGATIVE Urinary Incontinence screen, no further assessment is required for annual screening. Alcohol Use Screen (AUDIT-C): Alcohol Screen: SCREEN FOR ALCOHOL (AUDIT-C) An alcohol screening test (AUDIT-C) was negative (score=0). 1. How often did you have a drink containing alcohol in the past year? Never 2. How many drinks containing alcohol did you have on a typical day when you were drinking in the past year? Response not required due to responses to other questions. 3. How often did you have six or more drinks on one occasion in the past year? Response not required due to responses to other questions. Nutrition/Health Risk Scrn (Nurse): NUTRITION AND HEALTH RISK SCREEN: Has patient had any unintentional weight loss of more than 10 pounds in the last 3 months? Patient reports no unintentional weight loss >10 lbs in last three months. LDL greater than 130 mg/dl within last 6 months? No, patient's LDL is NOT greater than 130 mg/dl Glyco Hgb A1C results in the last 6 months No, patient has no Glyco Hgb A1c lab on file in last 6 months. Is patient on warfarin ? No, patient is NOT on warfarin * * * * There were no "YES" responses to the above screening questions * * * * Pain Evaluation (Nurse): PAIN EVALUATION: Clinic Location: Primary Care Patient reports no pain present today. Pain Score: 0 Advance Directive Screen (Nurse): "Your Rights Regarding Advance Directives" was discussed and/or provided to patient/caregiver. FORM: https://www.ethics.[place].gov/docs/policy/[place]_Form_10_0137 _Advance_Directive.pdf EDUCATION: ADVANCE DIRECTIVE SCREEN COPY of Advance Directive NOT on file in patient's medical record. Patient does not wish to create an Advance Directive. Information provided to patient. Tobacco Use Screening: The patient is a former tobacco user. The patient quit fifteen or more years ago. Depression Screening: Perform PHQ-2 A PHQ-2 screen was performed. The score was 0 which is a negative screen for depression. Over the past two weeks, how often have you been bothered by the following problems? 1. Little interest or pleasure in doing things Not at all 2. Feeling down, depressed, or hopeless Not at all /loki/ NAOMI HAWKINS LPN [facility] Signed: 03/20/2022 13:00 NAOMI HAWKINS [facility]
--- OUTSIDE RECORDS SUMMARY | 2023-03-07 08:02 | XMS REPORT | Encounter Summary ---
Author Author Department [facility] ROBBI hartley Organization Department of [facility] rs Address Unknown Phone Unavailable Support Name Relationship Address Phone GARIBAY, LETTY Next Of Kin Unknown LETTY GARIBAY [...] PART A Jul 08, 1998 PART A [id number] [phone] THU GARIBAY PATIENT MEDICARE (WNR) MEDICARE (M) PART B Jul 08, 1998 PART B [id number] [phone] THU GARIBAY PATIENT MEDICARE (WNR) MEDICARE (M) PART B Jul 08, 1998 PART B [id number] THU GARIBAY PATIENT MEDICARE (WNR) MEDICARE (M) PART A Jul 08, 1998 PART A [id number] THU GARIBAY PATIENT MEDICARE (WNR) MEDICARE (M) PART B Jul 08, 1998 PART B [id number] [phone] GARIBAYROBBI CLEMENT PATIENT MEDICARE (WNR) MEDICARE (M) PART A Jul 08, 1998 PART A [phone] GARIBAYSAMROBBI PATIENT [id number] [facility] DIRECT CARE Nov 02, 2008 [facility] DIRECT CARE [id number] ROBBI GARIBAY PATIENT [id number] FOR LIFE Nov 02, 2008 [facility] CARE FOR LIFE [id number] ROBBI GARIBAY PATIENT Selected Encounter This section includes the information on record at [place] for the Encounter. Date/Time Encounter Type Encounter Description Reason Provider Source Sep 18, 2022 10:30 AM Outpatient Encounter AUDIOLOGY IHE Encounter Template Text not used by [place] Assessments - Encounter Diagnoses No Data Provided for This Section Plan of Treatment: Future Appointments (+ 6 months) and Future Tests (+/- 45 day s) The Plan of Treatment section includes future care activities for the p atient from all [place] treatment facilities. This section includes future appointmen ts and future orders which are active, pending or scheduled. Future Appointments This section includes appointments that were scheduled t o occur 6 months from the date of the Encounter, up to a maximum of 20 appointme nts. The data comes from all [place] treatment facilities. Appointment Date/Time Appointment Type Appointment Facili ty Name Nov 12, 2022 01:32 PM AMBULATORY - MEDICINE [facility] Surgical Procedures: All associated to the encounter No Data Provided for This Section Lab Results: +/- 30 days of the encounter This section includes the Chemistry and Hematology Lab R esults on record with [place] for the patient. Radiology Reports and Pathology Report s are provided separately, in subsequent sections. Lab Results This section contains the Chemistry/Hematology Results gm t were resulted 30 days before or 30 days after the date of the Encounter. Date/Time Source Result Type Result - Unit Interpretation Reference Range Comment Sep 18, 2022 08:[address] [facility] TSH (FV) Specimen Type: SERUM No comment entered. Ordering Provider: TITUS MARIN Report Released Date/Time: Mar 20, 2022 11:49 AM Reporting [facility] [address] [facility] [address] Performing Lab: [facility] [address] [facility] [address] TSH (FV) 2.25 0.45-5.33 Sep 18, 2022 08:[address] [facility] LIPID PROFILE (FV) Specimen Type: SERUM No comment entered. Ordering Provider: TITUS MARIN Report Released Date/Time: Mar 20, 2022 11:49 AM Reporting Lab: [address] [id number] Performing Lab: [address] [id number] CHOLESTEROL, TOTAL (FV) 182 118-20 0 TRIGLYCERIDE (FV) 82 <150 LDL CHOLESTEROL (CALCULATED) 123 O ptimal <100 HDL CHOLESTEROL (FV) 43 >40 Sep 18, 2022 08:[address] [facility] VITAMIN B12 Specimen Type: SERUM No comment entered. Ordering Provider: TITUS MARIN Report Released Date/Time: Mar 20, 2022 11:49 AM Reporting Lab: [facility] [address] [facility] 7[address] Performing Lab: [facility] [address] [facility] [address] VITAMIN B12 (FV) 271 180-914 Sep 18, 2022 08:[address] [facility] CBC (FV) Specimen Type: BLOOD No comment entered. Ordering Provider: TITUS MARIN Report Released Date/Time: Mar 20, 2022 11:49 AM Reporting Lab: [address] [id number] Performing Lab: [address] [id number] RDW (FV) 13.5 11.5-14.5 HCT (FV) 43.2 40-52 HGB (FV) 14.4 13-18 PLT (FV) 187 150-440 WBC (FV) 6.9 3.8-10.6 RBC (FV) 4.63 4.4-5.9 MCV (FV) 93.3 80-100 MCH (FV) 31.0 26-34 MCHC (FV) 33.2 32-36 NE% (FV) 60.7 SEE ABSOLUTE # NE# (FV) 4.2 2.4-7.6 LY% (FV) 22.2 SEE ABSOLUTE # LY# (FV) 1.5 1.0-4.8 MO% (FV) 14.0 SEE ABSOLUTE # MO# (FV) 1.0 0.1-1.0 EO% (FV) 2.4 SEE ABSOLUTE # EO# (FV) 0.2 0.0-0.4 BA% (FV) 0.7 SEE ABSOLUTE # BA# (FV) 0.1 0.0-0.2 Sep 18, 2022 08:[address] [facility] RENAL+LIVER PROFILE Specimen Type: SERUM No comment entered. Ordering Provider: TITUS MARIN Report Released Date/Time: Mar 20, 2022 11:49 AM Reporting Lab: [address] [id number] Performing Lab: [address] [id number] GLUCOSE (FV) 97 70-110 ALBUMIN (FV) 4.1 3.4-5.0 AST (FV) 19 15-37 TOTAL BILIRUBIN (FV) 1.13 0.3-1.2 CHLORIDE (FV) 105 98-107 TOTAL PROTEIN (FV) 7.3 6.1-7.9 SODIUM (FV) 137 136-145 POTASSIUM (FV) 4.0 3.5-5.1 CO2 (FV) 26 21-32 UREA NITROGEN (FV) 15 6-20 CALCIUM (FV) 9.0 8.9-10.3 ALT (FV) 14 0-63 ALK. PHOS. (FV) 68 32-126 CREATININE (FV) 0.69 .61-1.24 eGFR (CKD-EPI 2020) 88 L >90 Sep 18, 2022 08:[address] [facility] URINALYSIS Specimen Type: URINE No comment entered. Ordering Provider: TITUS MARIN Report Released Date/Time: Mar 20, 2022 11:49 AM Reporting Lab: [address] [id number] Performing Lab: [address] [id number] UA COLOR YELLOW COLORLESS-YELLOW UA SPEC GRAV 1.024 1.005-1.035 UA PH 5.5 5-9 UA NITRITE NEG Neg.-Neg UA UROBILINOGEN <2.0 -Normal: <2 mg -dL UA APPEARANCE - CLEAR UA GLUCOSE NORMAL NEG-TRACE UA PROTEIN +- NEG UA BILI - NEG UA BLOOD +- NEG-TRACE UA KETONES - NEG-TRACE UA LEUK EST NEG. NEG-74 Vital Signs: All taken on the encounter [...] the Encounter. Date/Time Encounter Note(s) Provider Source Sep 18, 2022 09:20 AM EDUCATION NOTE: LOCAL TITLE: AFTER VISIT SUMMARY NOTE STANDARD TITLE: EDUCATION NOTE DICT DATE: SEP 18, 2022@09:20:38 ENTRY DATE: SEP 18, 2022@09:20:38 DICTATED BY: NAOMI HAWKINS COSIGNER: URGENCY: STATUS: COMPLETED The patient was [...] SCANNED DOCUMENT SIGNATURE NOT REQUIRED Electronically Filed: 09/18/2022 by: NAOMI HAWKINS LPN [facility]
--- OUTSIDE RECORDS SUMMARY | 2023-03-07 08:02 | XMS REPORT | Encounter Summary ---
Author Author Department [facility] ROBBI hartley Organization Department [facility] rs Address Unknown Phone Unavailable Support Name [...] PART A Jul 08, 1998 PART A [id number] [phone] THU GARIBAY PATIENT MEDICARE (WNR) MEDICARE (M) PART B Jul 08, 1998 PART B [id number] [phone] THU GARIBAY PATIENT MEDICARE (WNR) MEDICARE (M) PART A Jul 08, 1998 PART A [id number] THU GARIBAY PATIENT MEDICARE (WNR) MEDICARE (M) PART B Jul 08, 1998 PART B [id number] THU GARIBAY PATIENT MEDICARE (WNR) MEDICARE (M) PART B Jul 08, 1998 PART B [id number] [phone] GARIBAYROBBI CLEMENT PATIENT MEDICARE (WNR) MEDICARE (M) PART A Jul 08, 1998 PART A [id number] [phone] ROBBI GARIBAY PATIENT [id number] FOR LIFE Nov 02, 2008 [facility] CARE FOR LIFE [id number] ROBBI GARIBAY PATIENT [id number] [facility] DIRECT CARE Nov 02, 2008 [facility] DIRECT CARE [id number] ROBBI GARIBAY PATIENT Selected Encounter This section includes the information on record at [place] for the Encounter. Date/Time Encounter Type Encounter Description Reason Provider Source Sep 18, 2022 09:30 AM OFFICE O/P EST MOD 30-39 MIN PRIMARY CARE/ MEDICINE ICD-10-CM I48.91 Unspecified atrial fibrillation with Provider Comments: Atrial fibrillation ([facility] [id number]) TITUS MARIN Trang Encounter Template Text not used by [place] Assessments - Encounter Diagnoses This section includes the primary and secondary diag noses documented for the Encounter. Date/Time Primary/Secondary Diagnosis Diagnosis Name Provider Source Sep 18, 2022 09:41 AM PRIMARY Unspecified atrial fibrillation TITUS MARIN [facility] Sep 18, 2022 09:41 AM SECONDARY Essential (primary) hypertension TITUS MARIN [facility] Sep 18, 2022 09:41 AM SECONDARY Hyperlipidemia, unspecified TITUS MARIN [facility] Sep 18, 2022 09:41 AM SECONDARY Primary osteoarthritis, un specified site TITUS MARIN [facility] Plan of Treatment: Future Appointments (+ 6 months) and Future Tests (+/- 45 day s) The Plan of Treatment section includes future care activities for the p atient from all [place] treatment facilities. This section includes future appointmen ts and future orders which are active, pending or scheduled. Future Appointments This section includes appointments that were scheduled t o occur 6 months from the date of the Encounter, up to a maximum of 20 appointme nts. The data comes from all [place] treatment facilities. Appointment Date/Time Appointment Type Appointment Facili ty Name Nov 12, 2022 01:32 PM AMBULATORY - MEDICINE [facility] Surgical Procedures: All associated to the encounter No Data Provided for This Section Lab Results: +/- 30 days of the encounter This section includes the Chemistry and Hematology Lab R esults on record with [place] for the patient. Radiology Reports and Pathology Report s are provided separately, in subsequent sections. Lab Results This section contains the Chemistry/Hematology Results gm t were resulted 30 days before or 30 days after the date of the Encounter. Date/Time Source Result Type Result - Unit Interpretation Reference Range Comment Sep 18, 2022 08:17 AM [facility] TSH (FV) Specimen Type: SERUM No comment entered. Ordering Provider: TITUS MARIN Report Released Date/Time: Mar 20, 2022 11:49 AM Reporting Lab: [facility] [address] [place] [address] Performing Lab: [facility] [address] [place] [id number] TSH (FV) 2.25 0.45-5.33 Sep 18, 2022 08:17 AM [facility] LIPID PROFILE (FV) Specimen Type: SERUM No comment entered. Ordering Provider: TITUS MARIN Report Released Date/Time: Mar 20, 2022 11:49 AM Reporting Lab: [address] [facility] [id number] Performing Lab: [address] [phone] CHOLESTEROL, TOTAL (FV) 182 118-20 0 TRIGLYCERIDE (FV) 82 <150 LDL CHOLESTEROL (CALCULATED) 123 S ee_Comment HDL CHOLESTEROL (FV) 43 >40 Sep 18, 2022 08:17 AM [facility] VITAMIN B12 Specimen Type: SERUM No comment entered. Ordering Provider: TITUS MARIN Report Released Date/Time: Mar 20, 2022 11:49 AM Reporting Lab: [facility] [address] [place] [id number] Performing Lab: [facility] [address] [place] [id number] VITAMIN B12 (FV) 271 180-914 Sep 18, 2022 08:17 AM [facility] CBC (FV) Specimen Type: BLOOD No comment entered. Ordering Provider: TITUS MARIN Report Released Date/Time: Mar 20, 2022 11:49 AM Reporting Lab: [address] [facility] [id number] Performing Lab: [address] [phone] RDW (FV) 13.5 11.5-14.5 HCT (FV) [...] 0.1 0.0-0.2 Sep 18, 2022 08:17 AM [facility] RENAL+LIVER PROFILE Specimen Type: SERUM No comment entered. Ordering Provider: TITUS MARIN Report Released Date/Time: Mar 20, 2022 11:49 AM Reporting Lab: [address] [phone] Performing Lab: [address] [id number] GLUCOSE (FV) 97 70-110 ALBUMIN (FV) [...] L >90 Sep 18, 2022 08:17 AM [facility] URINALYSIS Specimen Type: URINE No comment entered. Ordering Provider: TITUS MARIN Report Released Date/Time: Mar 20, 2022 11:49 AM Reporting Lab: [facility] [address] [facility] [phone] Performing Lab: [facility] [address] [facility] [address] UA COLOR YELLOW See_Comment UA SPEC GRAV 1.024 1.005-1.035 UA PH 5.5 5-9 UA NITRITE NEG See_Comment UA UROBILINOGEN <2.0 See_Comment UA APPEARANCE - See_Comment UA GLUCOSE NORMAL See_Comment UA PROTEIN +- See_Comment UA BILI - See_Comment UA BLOOD +- See_Comment UA KETONES - See_Comment UA LEUK EST NEG. See_Comment Vital Signs: All taken on the encounter date This section contains inpatient and outpatient Vital Signs collected on the date of the Encounter. Date/Time Temperature Pulse Blood Pressure Respiratory Rate SP02 Pa in Height Weight Body Mass Index Source Sep 18, 2022 11:34 AM 0 [facility] Sep 18, 2022 09:19 AM 143/77 mm[Hg] [facility] Sep 18, 2022 09:12 AM 90 /min 151/84 mm[Hg] 20 /min 96 % 0 176.2 lb 28 [facility] Immunizations: All administered on the encounter date No Data Provided for This Section Social History: Smoking Status (Most current) and Tobacco Use (All prior to enco unter date) This section includes the most current, and the historical, smoking a nd tobacco-related health factors from the [place] facility where the Encounter took place. Current Smoking Status This section includes the most current smoking, or tobacco -related health factor, from the [place] facility where the Encounter took place. Date/Time Current Smoking Status Comment Facility Mar 20, 2022 11:00 AM VA-TOBACCO QUIT 15 YRS OR MORE [facility] Tobacco Use History This section includes a history of the smoking, or tobacco -related health factors, that were collected on or before the date of the Encoun ter. The data comes from the [place] facility where the Encounter took place. Date/Time Smoking Status/Tobacco Use Comment Roselia paz Mar 20, 2022 11:00 AM AR-TOBACCO QUIT 15 YRS OR MORE [facility] Mar 13, 2021 10:00 AM VA-TOBACCO FORMER USER [facility] Mar 13, 2021 10:00 AM VA-TOBACCO QUIT 15 YRS OR MORE [facility] Dec 04, 2018 09:50 AM V16 TOBACCO USE SCREEN [facility] Dec 04, 2018 09:50 AM VA-TOBACCO FORMER USER [facility] Dec 04, 2018 09:50 AM AR-TOBACCO QUIT 15 YRS OR MORE [facility] Advance Directives: All historical and current No [...] Encounter Note(s) Provider Source Sep 18, 2022 09:40 AM MEDICATION MGT NOTE: LOCAL TITLE: MEDICATION RECONCILIATION (PROVIDER) STANDARD TITLE: MEDICATION MGT NOTE DATE OF NOTE: SEP 18, 2022@09:40 ENTRY DATE: SEP 18, 2022@09:40:46 AUTHOR: TITUS MARIN COSIGNER: URGENCY: STATUS: COMPLETED [...] Allergy/ADR Data available for this patient [facility] No Known Allergies A list of active and pending outpatient prescriptions dispensed from this local [place] and dispensed remotely from another [place] or [facility] facility as well as local, pending and [...] GEL,TOP APPLY 2 GRAMS TOPICALLY FOUR ACTIVE (S) TIMES DAILY NEEDED FOR PAIN & INFLAMMATION-DON'T EXCEED 16 GRAMS DAILY TO ANY AFFECTED JOINT OF THE LOWER EXTREMITIES. DON'T EXCEED 8 GRAMS DAILY TO ANY AFFECTED JOINT OF THE UPPER EXTREMITIES. DON'T EXCEED A TOTAL DOSE OF 32 GRAMS DAILY OVER ALL JOINTS 2) GABAPENTIN 100MG CAP TAKE ONE CAPSULE BY MOUTH AT ACTIVE (S) BEDTIME -(MAY CAUSE DROWSINESS) 3) OMEPRAZOLE 20MG EC CAP TAKE ONE CAPSULE BY MOUTH ONCE ACTIVE (S) DAILY FOR THE STOMACH Active Non-VA Medications [...] No Active Remote Medications for this patient /loki/ TITUS MARIN APN PRIMARY CARE-SEEMA Signed: 09/18/2022 09:41 [facility] MARIN [facility] Sep 18, 2022 09:32 AM PRIMARY CARE PHYSICIAN NOTE: LOCAL TITLE: PRIMARY CARE/PROVIDER STANDARD TITLE: PRIMARY CARE PHYSICIAN NOTE DATE OF NOTE: SEP 18, 2022@09:32 ENTRY DATE: SEP 18, 2022@09:33:03 AUTHOR: TITUS MARIN EXP COSIGNER: URGENCY: STATUS: COMPLETED Active Outpatient Medications (including Supplies): Active Outpatient Medications Status 1) DICLOFENAC 1% GEL,TOP APPLY 2 GRAMS TOPICALLY FOUR ACTIVE (S) TIMES DAILY NEEDED FOR PAIN & INFLAMMATION-DON'T EXCEED 16 GRAMS DAILY TO ANY AFFECTED JOINT OF THE LOWER EXTREMITIES. DON'T EXCEED 8 GRAMS DAILY TO ANY AFFECTED JOINT OF THE UPPER EXTREMITIES. DON'T EXCEED A TOTAL DOSE OF 32 GRAMS DAILY OVER ALL JOINTS 2) GABAPENTIN 100MG CAP TAKE ONE CAPSU LE BY MOUTH AT ACTIVE (S) BEDTIME -(MAY CAUSE DROWSINESS) 3) OMEPRAZOLE 20MG EC CAP TAKE ONE CAP PETER BY MOUTH ONCE ACTIVE (S) DAILY FOR THE STOMACH Active Non-VA Medications [...] DONE CAP/TAB MOUTH ACTIVE 9 Total Medications ALLERGIES: Patient has answered NKA From Nurses NOTE: "SUBJECTIVE: Here for RTC with labs done Medications reveiwed. would like 90 day supply on diclofenac gel. Local providers: Dr. Marks (PCP), Dr. Velazco (cardio) Would like to discuss: none What things in your life are causing you stress or worry, that need to be taken care of today? none Depression: No Suicidal: No Accompanied By: Alone On Arrival: Ambulatory Mobility changes in the past 3 months? No " HPI: ROBBI GARIBAY, 87 year old, MALE presents with chief complaint as above. Tobacco - denies use ETOH - denies use Illicit drugs - denies use Pt. reports no ER/UC visits, hospitalizations, surgeries or serious illnesses since last PCP visit. Medication list reconciled. PERTINANT REVIEW OF SYSTEMS: GENERAL: Appetite good, no significant weight change HEENT: No significant change or complaints HEART: No chest pain or palpitations LUNGS: No Shortness of breath Denies cough Gastrointestinal: No abdominal pain, bowel movements unchanged Genital/Urinary: No dysuria, hematuria, or change in frequency of urination MUSCULOSKELETAL: Normal ROM, denies myalgia SKIN: Denies rash, open wounds or nonhealing sores PSY: Mood stable; denies SI/HI. VITALS: DATE/TIME TEMP PULSE RESP BP PAIN WEIGHT 09/18/22 @ 0912 90 20 151/84 0 176.2 GENERAL: Appears stated age w/NAD; Alert and oriented x 3. PSYCH: Appropriate thought content. Mood appropriate. NEURO: Easily follows commands. Cranial Nerves: II-XII intact. Sensory: Grossly intact. No focal deficits noted. HEENT: Conjunctiva non-icteric. Extra ocular motions appear intact. Periorbital areas with no edema or redness. NECK: Trachea midline. No JVD at 90 degrees. Carotids with no bruits. HEART: RRR, no gallops or rubs, no [...] seconds. TODAY'S LAB RESULTS: Pending UR COLOR: YELLOW SPECIFIC GRAVITY: 1.024 UR PH: 5.5 NITRITE, URINE: NEG UROBILINOGEN (FAV) (01-05-08): <2.0 UA APPEARANCE (04-01-11): - UA GLUCOSE (07-12-19): NORMAL UA PROTEIN (07-12-19): +- UA BILI (07-12-19): - UA BLOOD (07-12-19): +- UA KETONES (NEW): - UA LEUK EST (07-12-19): NEG. dGLUCOSE: 97 dALBUMIN: 4.1 dAST: 19 dBILIRUBIN, TOTAL: 1.13 dCHLORIDE: 105 dCHOLESTEROL, TOTAL: 182 dPROTEIN, TOTAL: 7.3 dSODIUM #3: 137 dPOTASSIUM #3: 4.0 dCO2 #3: 26 UREA NITROGEN (CHERYL): 15 CALCIUM (CHERYL): 9.0 TRIGLYCERIDE (CHERYL): 82 ALT (CHERYL)2: 14 ALP (CHERYL)2: 68 LDL CHOL (CALC): 123 CREATININE (09-12-08) FAV: 0.69 HDL, CHOLESTEROL (12-12-10): 43 eGFR (10-21-21): 88 L RDW: 13.5 HCT (01-19-09): 43.2 HGB (01-19-09): 14.4 PLT (01-19-09): 187 WBC (12-06-09): 6.9 RBC (12-06-09): 4.63 MCV (12-06-09): 93.3 MCH (12-06-09): 31.0 MCHC (12-06-09): 33.2 NE% (12-06-09): 60.7 NE# (12-06-09): 4.2 LY% (12-06-09): 22.2 LY# (12-06-09): 1.5 MO% (12-06-09): 14.0 MO# (12-06-09): 1.0 EO% (12-06-09): 2.4 EO# (12-06-09): 0.2 BA% (12-06-09): 0.7 BA# (12-06-09): 0.1 ASSESSMENT/PLAN: 1. Atrial fibrillation - stable; continu e f/u with local cardiology; continue apixiban. 2. Dysphagia - stable; pt denies worseni ng of this issue. 3. Hypertension (SNOMED CT 56706194) - b /p within target range 4. Hyperlipidemia (SNOMED CT 29229734) - LDL above goal of < 100, but stable at 123. Lipid lowering agent deferred due to age. Takes Fish Oil 5. Hypertrophy (Benign) of Prostate with out Urinary obstruction - stable Noctauria 6. Osteoarthritis (SNOMED CT 248600711) - stable Spine and in small joints. The patients medical condition(s), new medication(s), and [...] all medications (x)Lab results: Reviewed with patient /es/ TITUS MARIN APN PRIMARY CARE-SEEMA Signed: 09/18/2022 09:40 TITUS MARIN [facility] Sep 18, 2022 09:15 AM PRIMARY CARE NURSING NOTE: LOCAL TITLE: PRIMARY CARE/NURSE STANDARD TITLE: PRIMARY CARE NURSING NOTE DATE OF NOTE: SEP 18, 2022@09:15 ENTRY DATE: SEP 18, 2022@09:15:50 AUTHOR: NAOMI HAWKINS EXP COSIGNER: URGENCY: STATUS: COMPLETED PRIMARY CARE/NURSE Has ADDENDA BP: 151/84 (09/18/2022 09:12) Pain: 0 (09/18/2022 09:12) Height: 67 in [170.2 cm] (03/20/2022 11:09) Weight: 176.2 lb [79.92 kg] (09/18/2022 09:12) Pulse: 90 (09/18/2022 09:12) Respiration: 20 (09/18/2022 09:12) Temperature: 98.1 F [36.7 C] (03/20/2022 11:09) BMI: SEP 18, 2022@09:12:14 27.7 09/18/22 @ 0912 PULSE OXIMETRY: 96 SUBJECTIVE: Here for RTC with labs done Medications reveiwed. would like 90 day supply on diclofenac gel. Local providers: Dr. Marks (PCP), Dr. Velazco (cardio) Would like to discuss: none What things in your life are causing [...] Specimen Test Name Result Units Ref Range 09/18/2022 08:17 SERUM LDLc 123 mg/dL Ref: Optimal <100 LAB CUMULATIVE SELECTED 1 No selection items chosen for this component. OTHER MEDICATIONS (HERBALS, OTC's, etc): No Active Outpatient Medications (including Supplies): Active Outpatient Medications Status 1) DICLOFENAC 1% GEL,TOP APPLY 2 GRAMS TOPICALLY FOUR ACTIVE (S) TIMES DAILY NEEDED FOR PAIN & INFLAMMATION-DON'T EXCEED 16 GRAMS DAILY TO ANY AFFECTED JOINT OF THE LOWER EXTREMITIES. DON'T EXCEED 8 GRAMS DAILY TO ANY AFFECTED JOINT OF THE UPPER EXTREMITIES. DON'T EXCEED A TOTAL DOSE OF 32 GRAMS DAILY OVER ALL JOINTS 2) GABAPENTIN 100MG CAP TAKE ONE CAPSU LE BY MOUTH AT ACTIVE (S) BEDTIME -(MAY CAUSE DROWSINESS) 3) OMEPRAZOLE 20MG EC CAP TAKE ONE CAP PETER BY MOUTH ONCE ACTIVE (S) DAILY FOR THE STOMACH Active Non-VA Medications [...] DONE CAP/TAB MOUTH ACTIVE 9 Total Medications Toxic Exposure Screening: The [place]/caregiver was asked if they believe the experienced any toxic exposure(s), such as Open [place]/Airborne Hazards, [place] War related exposures, Agent [place], Radiation, contaminated water at [place] or other such exposures, while serving in the [employer]. [place] has no concerns about toxic exposure(s) while serving in the [employer]. The /caregiver was informed that we will continue to ask this screening question every 5 years. They can contact their provider/healthcare team if they have concerns about exposures and would like to be screened sooner. Printed information was offered and provided if desired. HTN Assess for Elevated BP>=140/90: Repeat blood pressure: 143/77 /es/ NAOMI HAWKINS LPN PRIMARY CARE SEEMA Signed: 09/18/2022 09:20 09/18/2022 ADDENDUM STATUS: COMPLETED Nutrition/Health Risk Scrn (Nurse): NUTRITION AND HEALTH [...] no pain present today. Pain Score: 0 PTSD Screening: PC-PTSD-5 A PTSD screening test (PC-PTSD-5) was negative (score=0). Have you ever had any experience that was so frightening, horrible or upsetting that, IN THE PAST MONTH, you: Have you ever experienced this kind of event? NO 1. Had nightmares about the event(s) or thought about the event(s) when you did not want to? Response not required due to responses to other questions. 2. Tried hard not to think about the event(s) or went out of your way to avoid situations that reminded you of the event(s)? Response not required due to responses to other questions. 3. Been constantly on guard, watchful, or easily startled? Response not required due to responses to other questions. 4. [place] numb or detached from people, activities, or your surroundings? Response not required due to responses to other questions. 5. [place] guilty or unable to stop blaming yourself or others for the event(s) or any problems the event(s) may have caused? Response not required due to responses to other questions. /loki/ NAOMI HAWKINS LPN PRIMARY CARE SEEMA Signed: 09/18/2022 11:35 NAOMI HAWKINS [facility]
--- OUTSIDE RECORDS SUMMARY | 2023-03-07 08:02 | XMS REPORT | Encounter Summary ---
Author Author Department [facility] ROBBI hartley Organization Department of [facility] rs Address Unknown Phone Unavailable Support [...] Policy Perez MEDICARE (WNR) MEDICARE (M) PART B Jul 08, 1998 PART B [id number] [phone] THU GARIBAY PATIENT MEDICARE (WNR) MEDICARE (M) PART A Jul 08, 1998 PART A [id number] [phone] THU GARIBAY PATIENT MEDICARE (WNR) MEDICARE (M) PART A Jul 08, 1998 PART A [id number] THU GARIBAY PATIENT MEDICARE (WNR) MEDICARE (M) PART B Jul 08, 1998 PART B [id number] THU GARIBAY PATIENT MEDICARE (WNR) MEDICARE (M) PART B Jul 08, 1998 PART B [id number] [phone] GARIBAYROBBI CLEMENT PATIENT MEDICARE (WNR) MEDICARE (M) PART A Jul 08, 1998 PART A [id number] [phone] [place] PATIENT [id number] FOR LIFE Nov 02, 2008 [facility] CARE FOR LIFE [id number] ROBBI GARIBAY PATIENT [id number] [facility] DIRECT CARE Nov 02, 2008 [facility] DIRECT CARE [id number] ROBBI GARIBAY PATIENT Selected Encounter This section includes the information on record at [place] for the Encounter. Date/Time Encounter Type Encounter Description Reason Provider Source Mar 20, 2022 12:23 PM Outpatient Encounter PRIMARY CARE/MEDICINE IHE Encounter Template Text not used by [place] Assessments - Encounter Diagnoses No Data Provided for This Section Plan of Treatment: Future Appointments (+ 6 months) and Future Tests (+/- 45 day s) The Plan of Treatment section includes future care activities for the p atient from all [place] treatment facilities. This section includes future appointmen ts and future orders which are active, pending or scheduled. Future Appointments This section includes appointments that were scheduled t o occur 6 months from the date of the Encounter, up to a maximum of 20 appointme nts. The data comes from all [place] treatment facilities. Appointment Date/Time Appointment Type Appointment Facili ty Name Sep 18, 2022 08:30 AM AM[facility]ULATORY - [facility] Sep 18, 2022 09:30 AM AMBULATORY - MEDICINE [facility] Sep 18, 2022 10:30 AM AMBULATORY - MEDICINE [facility] Surgical Procedures: All associated to the encounter No Data Provided for This Section Lab Results: +/- 30 days of the encounter This section includes the Chemistry and Hematology Lab R esults on record with [place] for the patient. Radiology Reports and Pathology Report s are provided separately, in subsequent sections. Lab Results This section contains the Chemistry/Hematology Results gm t were resulted 30 days before or 30 days after the date of the Encounter. Date/Time Source Result Type Result - Unit Interpretation Reference Range Comment Mar 20, 2022 09:30 AM [facility] URINALYSIS Specimen Type: URINE No comment entered. Ordering Provider: TITUS MARIN Report Released Date/Time: Mar 20, 2022 08:18 AM Reporting Lab: [address] [id number] Performing Lab: [address] [address] UA COLOR STRAW COLORLESS-YELLOW UA SPEC GRAV 1.014 1.005-1.035 UA PH 6.0 5-9 UA NITRITE NEG Neg.-Neg UA UROBILINOGEN <2.0 -Normal: <2 mg -dL UA APPEARANCE - CLEAR UA GLUCOSE NORMAL NEG-TRACE UA PROTEIN - NEG UA BILI - NEG UA BLOOD - NEG-TRACE UA KETONES - NEG-TRACE UA LEUK EST NEG. NEG-74 Mar 20, 2022 07:56 AM [facility] LIPID PROFILE (FV) Specimen Type: SERUM No comment entered. Ordering Provider: TITUS MARIN Report Released Date/Time: Mar 18, 2022 12:47 PM Reporting Lab: [address] [id number] Performing Lab: [address] [address] CHOLESTEROL, TOTAL (FV) 179 118-20 0 TRIGLYCERIDE (FV) 53 <150 LDL CHOLESTEROL (CALCULATED) 123 S ee_Comment HDL CHOLESTEROL (FV) 45 >40 Mar 20, 2022 07:56 AM [facility] TSH (FV) Specimen Type: SERUM No comment entered. Ordering Provider: TITUS MARIN Report Released Date/Time: Mar 18, 2022 12:47 PM Reporting Lab: [facility] [address] [place] [id number] Performing Lab: [facility] [address] [place] [address] TSH (FV) 2.33 0.45-5.33 Mar 20, 2022 07:56 AM [facility] CBC (FV) Specimen Type: BLOOD No comment entered. Ordering Provider: TITUS MARIN Report Released Date/Time: Mar 18, 2022 12:47 PM Reporting Lab: [address] [phone] Performing Lab: [address] [address] RDW (FV) 13.9 11.5-14.5 HCT (FV) [...] 0.1 0.0-0.2 Mar 20, 2022 07:56 AM [facility] RENAL+LIVER PROFILE Specimen Type: SERUM No comment entered. Ordering Provider: TITUS MARIN Report Released Date/Time: Mar 18, 2022 12:47 PM Reporting Lab: [address] [phone] Performing Lab: [address] [phone] GLUCOSE (FV) 96 70-110 ALBUMIN (FV) [...] >90 >90 Mar 20, 2022 07:56 AM [facility] VITAMIN B12 Specimen Type: SERUM No comment entered. Ordering Provider: TITUS MARIN Report Released Date/Time: Mar 18, 2022 12:47 PM Reporting Lab: [facility] [address] [place] [id number] Performing Lab: [facility] [address] [place] [id number] VITAMIN B12 (FV) 322 115-910 Vital Signs: All taken on the encounter [...] Encounter Note(s) Provider Source Mar 20, 2022 12:23 PM ADMINISTRATIVE NOTE: LOCAL TITLE: HIPAA PRIVACY RELEASE STANDARD TITLE: ADMINISTRATIVE NOTE DATE OF NOTE: MAR 20, 2022@12:23 ENTRY DATE: MAR 20, 2022@12:23:46 AUTHOR: EDINSON THOMPSON COSIGNER: URGENCY: STATUS: COMPLETED Verbal consent obtained. Date: Mar This release is in effect for a period of 1 year. The following type of information may be discussed: appointment information, lab results, plan of care, treatment options, test results, condition , diagnosis, list of medications, address/phone number/emergency contact in case home care is to be provided People authorized to receive above information: Alyssa Chase, I give permission to provide medical information, my home address, and my phone number in the coordination of my home health care: YES Home Health Agency I give permission for message (including medical information) to be left on my answering machine: Yes /loki/ EDINSON THOMPSON Signed: 03/20/2022 12:24 EDINSON THOMPSON [facility]
--- OUTSIDE RECORDS SUMMARY | 2023-03-07 08:03 | XMS REPORT | Encounter Summary ---
Author Author Department [facility] ROBBI hartley Organization Department of [facility] rs Address Unknown Phone Unavailable Support [...] PART A Jul 08, 1998 PART A [id number] 57A [phone] THU GARIBAY PATIENT MEDICARE (WNR) MEDICARE (M) PART B Jul 08, 1998 PART B [id number] [phone] THU GARIBAY PATIENT MEDICARE (WNR) MEDICARE (M) PART A Jul 08, 1998 PART A [id number] THU GARIBAY PATIENT MEDICARE (WNR) MEDICARE (M) PART B Jul 08, 1998 PART B [id number] THU GARIBAY PATIENT MEDICARE (WNR) MEDICARE (M) PART B Jul 08, 1998 PART B [id number] [phone] GARIBAYROBBI CLEMENT PATIENT MEDICARE (WNR) MEDICARE (M) PART A Jul 08, 1998 PART A [id number] 57A [phone] ROBBI GARIBAY PATIENT [id number] FOR LIFE Nov 02, 2008 [facility] CARE FOR LIFE [id number] [place] PATIENT [id number] MTF DIRECT CARE Nov 02, 2008 [facility] DIRECT CARE [id number] ROBBI GARIBAY PATIENT Selected Encounter This section includes the information on record at [place] for the Encounter. Date/Time Encounter Type Encounter Description Reason Provider Source February 04, 2023 08:50 AM Outpatient Encounter AUDIOLOGY IHE Encounter Template Text not used by [place] Assessments - Encounter Diagnoses No Data Provided for This Section Plan of Treatment: Future Appointments (+ 6 months) and Future Tests (+/- 45 day s) The Plan of Treatment section includes future care activities for the p atient from all [facility]. This section includes future appointmen ts and future orders which are active, pending or scheduled. Future Appointments This section includes appointments that were scheduled t o occur 6 months from the date of the Encounter, up to a maximum of 20 appointme nts. The data comes from all [facility]. Appointment Date/Time Appointment Type Appointment Facili ty Name Apr 02, 2023 09:00 AM AMBULATORY - NONE [facility] Apr 02, 2023 10:00 AM AMBULATORY - MEDICINE [facility] Active, Pending, and Scheduled Orders This section includes a listing of several types of activ e, pending, and scheduled orders, including clinic medications orders, diagnosti c test orders, procedure orders and consult orders; where the start date of th e order is 45 days before the date of the Encounter or 45 days after the date o f the Encounter. The data comes from all [facility]. Test Date/Time Test Type Test Details Facility Name Mar 18, 2023 12:00 AM Laboratory - Chemistry Order CBC (FV) BLOO D [facility] Mar 18, 2023 12:00 AM Laboratory - Chemistry Order RENAL+BUDDY ER PROFILE BLOOD SERUM [facility] Mar 18, 2023 12:00 AM Laboratory - Chemistry Order LIPID PRO FILE (FV) BLOOD PLASMA [facility] Mar 18, 2023 12:00 AM Laboratory - Chemistry Order TSH (FV) BLOO D SERUM [facility] Mar 18, 2023 12:00 AM Laboratory - Chemistry Order VITAMIN B12 B LOOD SERUM [facility] Mar 18, 2023 12:00 AM Laboratory - Chemistry Order URINALYSIS UR INE [facility] Surgical Procedures: All associated to the encounter No Data Provided for This Section Lab Results: +/- 30 days of the encounter No Data Provided for This Section Vital Signs: All taken on the encounter [...] the Encounter. Date/Time Encounter Note(s) Provider Source February 04, 2023 08:50 AM AUDIOLOGY ADMINISTRATIVE NOT E: LOCAL TITLE: AUDIOLOGY [facility] BPM DEVELOPER NOTE STANDARD TITLE: AUDIOLOGY ADMINISTRATIVE NOTE DATE OF NOTE: FEBRUARY 04, 2023@08:50 ENTRY DATE: FEBRUARY 04, 2023@08:50:15 AUTHOR: RELL PEREZ EXP COSIGNER: NETTA SMITH URGENCY: STATUS: COMPLETED AUDIOLOGY [facility]ALTH [facility] BPM DEVELOPER NOTE Has ADDENDA Date: FEBRUARY 04, 2023 ROBBI GARIBAY 87 YEARS OLD HEARING AID CHECK APPOINTMENT S: Reason for Drop off : right cage loader wire broke O: Hearing aid(s) Issued: Make: Phonak Model: Audeo P90 312 Link/Tubin-P Domes/Slimtip: Cshell Filter Type: Cerustop Battery: 312 Rechargeable? No Serial number(s): Left [id number] Right [id number] Warranty Expiration date: 02/17/24 The hearing aids were cleaned and checked. The following procedures were performed: Wax Guard/Filter Replaced Earmolds cleaned Microphone opening cleaned Suctioned out cage loader opening A:Family member dropped off hearing aids, right cage loader is broke and I will send in for repair Veterans family will stop by to pick it up when it comes back. Left was cleaned and checked and is in working order. Veterans family was called for pickle cutter at the front desk agent. P: will return to clinic for hearing aid follow ups as needed. will come pickle cutter hearing aid when it comes back. /loki/ RELL PEREZ [facility] BPM DEVELOPER Signed: 02/04/2023 08:57 /NATASHA Thao PERSONAL FINANCIAL COUNSELOR Cosigned: 02/04/2023 13:22 02/13/2023 ADDENDUM STATUS: COMPLETED Received repaired hearing aid(s). Notified patient that their hearing aid(s) is ready to be pickle cutter. /roni Barber [facility] BPM DEVELOPER Signed: 02/13/2023 13:30 /NATASHA Thao PERSONAL FINANCIAL COUNSELOR Cosigned: 02/13/2023 13:32 RELL PEREZ [facility]
--- OUTSIDE RECORDS SUMMARY | 2023-03-07 08:03 | XMS REPORT | Encounter Summary ---
Author Author [facility] ROBBI hartley Organization Department [facility] rs Address Unknown Phone Unavailable Support Name Relationship Address Phone GARIBAY, LETTY Next Of Kin Unknown [place] ECON Unknown Insurance Providers: All historical and [...] PART A Jul 08, 1998 PART A [id number] [phone] THU GARIBAY PATIENT MEDICARE (WNR) MEDICARE (M) PART B Jul 08, 1998 PART B [id number] 57A [phone] THU GARIBAY PATIENT MEDICARE (WNR) MEDICARE (M) PART A Jul 08, 1998 PART A [id number] THU GARIBAY PATIENT MEDICARE (WNR) MEDICARE (M) PART B Jul 08, 1998 PART B [id number] THU GARIBAY PATIENT MEDICARE (WNR) MEDICARE (M) PART B Jul 08, 1998 PART B [id number] 57A [phone] ROBBI GARIBAY PATIENT MEDICARE (WNR) MEDICARE (M) PART A Jul 08, 1998 PART A [id number] [phone] ROBBI GARIBAY PATIENT [id number] FOR LIFE Nov 02, 2008 [facility] CARE FOR LIFE [id number] ROBBI GARIBAY PATIENT [id number] MTF DIRECT CARE Nov 02, 2008 [facility] DIRECT CARE [id number] ROBBI GARIBAY PATIENT Selected Encounter This section includes the information on record at [place] for the Encounter. Date/Time Encounter Type Encounter Description Reason Provider Source Sep 18, 2022 10:30 AM HEARING AID FITTING/CHECKING AUDIOLOGY ICD-10-CM Z46.1 Encounter for fitting and adjustment of hearing aid with Provider Comments: Encounter for Fitting and Adjustment of Hearing Aid ANDRIA AMBROSE Encounter Template Text not used by [place] Assessments - Encounter Diagnoses This section includes the primary and secondary diag noses documented for the Encounter. Date/Time Primary/Secondary Diagnosis Diagnosis Name Provider Source Sep 18, 2022 10:09 AM PRIMARY Encounter for fitt ing and adjustment of hearing aid [facility] Sep 18, 2022 10:09 AM SECONDARY Sensorineural hearing loss , [facility] Plan of Treatment: Future Appointments (+ 6 months) and Future Tests (+/- 45 day s) The Plan of Treatment section includes future care activities for the p atient from all [place] treatment facilities. This section includes future appointmen ts and future orders which are active, pending or scheduled. Future Appointments This section includes appointments that were scheduled t o occur 6 months from the date of the Encounter, up to a maximum of 20 appointme nts. The data comes from all [place] treatment facilities. Appointment Date/Time Appointment Type Appointment Facili ty Name Nov 12, 2022 01:32 PM AMBULATORY - MEDICINE [facility] Surgical Procedures: All associated to the encounter No Data Provided for This Section Lab Results: +/- 30 days of the encounter This section includes the Chemistry and Hematology Lab R esults on record with [place] for the patient. Radiology Reports and Pathology Report s are provided separately, in subsequent sections. Lab Results This section contains the Chemistry/Hematology Results gm t were resulted 30 days before or 30 days after the date of the Encounter. Date/Time Source Result Type Result - Unit Interpretation Reference Range Comment Sep 18, 2022 08:17 AM [facility] TSH (FV) Specimen Type: SERUM No comment entered. Ordering Provider: TITUS MARIN Report Released Date/Time: Mar 20, 2022 11:49 AM Reporting Lab: [facility] [address] [facility] 7[address] Performing Lab: [facility] [address] [facility] 7[address] TSH (FV) 2.25 0.45-5.33 Sep 18, 2022 08:17 AM [facility] LIPID PROFILE (FV) Specimen Type: SERUM No comment entered. Ordering Provider: TITUS MARIN Report Released Date/Time: Mar 20, 2022 11:49 AM Reporting Lab: [address] [id number] Performing Lab: [address] [phone] CHOLESTEROL, TOTAL (FV) 182 118-20 0 TRIGLYCERIDE (FV) 82 <150 LDL CHOLESTEROL (CALCULATED) 123 O ptimal <100 HDL CHOLESTEROL (FV) 43 >40 Sep 18, 2022 08:17 AM [facility] RENAL+LIVER PROFILE Specimen Type: SERUM No comment entered. Ordering Provider: TITUS MARIN Report Released Date/Time: Mar 20, 2022 11:49 AM Reporting Lab: [address] [id number] Performing Lab: [address] [id number] GLUCOSE (FV) 97 70-110 ALBUMIN (FV) [...] L >90 Sep 18, 2022 08:17 AM [facility] VITAMIN B12 Specimen Type: SERUM No comment entered. Ordering Provider: TITUS MARIN Report Released Date/Time: Mar 20, 2022 11:49 AM Reporting [facility]: [facility] [address] [facility] 7270 Performing Lab: [facility] [address] [facility] 7270 VITAMIN B12 (FV) 271 180-914 Sep 18, 2022 08:17 AM [facility] CBC (FV) Specimen Type: BLOOD No comment entered. Ordering Provider: TITUS MARIN Report Released Date/Time: Mar 20, 2022 11:49 AM Reporting Lab: [address] [id number] Performing Lab: [address] [phone] RDW (FV) 13.5 11.5-14.5 HCT (FV) [...] 0.1 0.0-0.2 Sep 18, 2022 08:17 AM [facility] URINALYSIS Specimen Type: URINE No comment entered. Ordering Provider: TITUS MARIN Report Released Date/Time: Mar 20, 2022 11:49 AM Reporting Lab: [address] [id number] Performing Lab: [address] [id number] UA COLOR YELLOW COLORLESS-YELLOW UA SPEC [...] Source Sep 18, 2022 11:34 AM 0 [facility] Sep 18, 2022 09:19 AM 143/77 mm[Hg] [facility] Sep 18, 2022 09:12 AM 90 /min 151/84 mm[Hg] 20 /min 96 % 0 176.2 lb 28 [facility] Immunizations: All administered on the encounter date No Data Provided for This Section Social History: Smoking Status (Most current) and Tobacco Use (All prior to enco unter date) This section includes the most current, and the historical, smoking a nd tobacco-related health factors from the [place] facility where the Encounter took place. Current Smoking Status This section includes the most current smoking, or tobacco -related health factor, from the [place] facility where the Encounter took place. Date/Time Current Smoking Status Comment Facility Mar 20, 2022 11:00 AM [facility] Tobacco Use History This section includes a history of the smoking, or tobacco -related health factors, that were collected on or before the date of the Encoun ter. The data comes from the [place] facility where the Encounter took place. Date/Time Smoking Status/Tobacco Use Comment [facility] Mar 20, 2022 11:00 AM [place]-TO[place]ACCO QUIT 15 YRS OR MORE [facility] Mar 13, 2021 10:00 AM VA-TOBACCO FOR[facility] US[facility] Mar 13, 2021 10:00 AM VA-TOBACCO QUIT 15 YRS OR MORE [facility] Dec 04, 2018 09:50 AM V16 TOBACCO USE SCREEN [facility] Dec 04, 2018 09:50 AM VA[facility]TOBACCO FOR[facility] USER [facility] Dec 04, 2018 09:50 AM VA-TOBACCO QUIT 15 YRS OR MORE [facility] Advance Directives: All historical and current [...] Encounter Note(s) Provider Source Sep 18, 2022 10:04 AM AUDIOLOGY ADMINISTRATIVE NOT E: LOCAL TITLE: AUDIOLOGY HEALTH IN [place] MEMBER NOTE STANDARD TITLE: AUDIOLOGY ADMINISTRATIVE NOTE DATE OF NOTE: SEP 18, 2022@10:04 ENTRY DATE: SEP 18, 2022@10:04:45 AUTHOR: RELL PEREZ EXP COSIGNER: ANDRIA AMBROSE URGENCY: STATUS: COMPLETED ROBBI GARIBAY [id number] Jul HEARING AID CHECK APPOINTMENT S: Reason for Visit: clean and check O: Hearing aid(s) Issued: Make: Phonak Model: Audeo P90 312 Link/Tubin-P Domes/Slimtip: Cshell Filter Type: Cerustop Battery: 312 Rechargeable? No Serial number(s): Left [id number] Right [id number] Warranty Expiration date: 02/17/24 The hearing aids were cleaned and checked. The following procedures were performed: Wax Guard/Filter Replaced Earmolds cleaned Microphone opening cleaned Procedure codes: V5011 Fitting/Orientation/Checking of hearing aids A:[place] states he was not hearing very well, he can hear the people behind him but cannot hear the ones in front of him very well, I cleaned the hearing aids, changed out the wax guards, brushed out the mircophones, the microphones were clogged, otoscope used both ears have minimal wax in them, but i was able to clearly see the ear drum. I showed him how to brush out his microphones daily to see if that helps now that they are clear. He will let me know if he stills needs help, hearing aids in working order. Diagnosis codes: Z46.1 Fitting and adjustment of Hearing aid H90.3 Sensorineural hearing loss P:Follow up with pharmacy technician program director as needed /loki/ RELL PEREZ [facility] MEMBER Signed: 09/18/2022 10:09 /loki/ Derek ESTES STAFF SALES INCENTIVE ANALYST-[place] Cosigned: 09/18/2022 16:31 RELL PEREZ [facility]
--- OUTSIDE RECORDS SUMMARY | 2023-03-07 08:03 | XMS REPORT | Encounter Summary ---
Author Author [facility] ROBBI hartley Organization Department [facility] rs Address Unknown Phone Unavailable Support [...] PART A Jul 08, 1998 PART A [id number] [phone] THU GARIBAY PATIENT MEDICARE (WNR) MEDICARE (M) PART B Jul 08, 1998 PART B [id number] [phone] THU GARIBAY PATIENT MEDICARE (WNR) MEDICARE (M) PART A Jul 08, 1998 PART A [id number] THU GARIBAY PATIENT MEDICARE (WNR) MEDICARE (M) PART B Jul 08, 1998 PART B [id number] THU GARIBAY PATIENT MEDICARE (WNR) MEDICARE (M) PART B Jul 08, 1998 PART B [id number] 57A [phone] ROBBI GARIBAY PATIENT MEDICARE (WNR) MEDICARE (M) PART A Jul 08, 1998 PART A [id number] 57A [phone] ROBBI GARIBAY PATIENT [id number] FOR LIFE Nov 02, 2008 [facility] CARE FOR LIFE [id number] ROBBI GARIBAY PATIENT [id number] MTF DIRECT CARE Nov 02, 2008 [facility] DIRECT CARE [id number] ROBBI GARIBAY PATIENT Selected Encounter This section includes the information on record at [place] for the Encounter. Date/Time Encounter Type Encounter Description Reason Provider Source Nov 12, 2022 01:32 PM HEARING AID FITTING/CHECKING AUDIOLOGY ICD-10-CM Z46.1 Encounter for fitting and adjustment of hearing aid with Provider Comments: Encounter for Fitting and Adjustment of Hearing Aid ANDRIA AMBROSE Encounter Template Text not used by [place] Assessments - Encounter Diagnoses This section includes the primary and secondary diag noses documented for the Encounter. Date/Time Primary/Secondary Diagnosis Diagnosis Name Provider Source Nov 12, 2022 02:35 PM PRIMARY Encounter for fitt ing and adjustment of hearing aid [facility]AC[facility]BS CREEKRELL [facility] Nov 12, 2022 02:35 PM SECONDARY Sensorineural hearing loss , bilateral JACOBS CREEKRELL Elisabeth [facility] Plan of Treatment: Future Appointments (+ 6 months) and Future Tests (+/- 45 day s) The Plan of Treatment section includes future care activities for the p atient from all [place] treatment facilities. This section includes future appointmen ts and future orders which are active, pending or scheduled. Future Appointments This section includes appointments that were scheduled t o occur 6 months from the date of the Encounter, up to a maximum of 20 appointme nts. The data comes from all [place] treatment facilities. Appointment Date/Time Appointment Type Appointment Facili ty Name Apr 02, 2023 09:00 AM AMBULATORY - NONE [facility] Apr 02, 2023 10:00 AM AMBULATORY - MEDICINE [facility] Surgical Procedures: All associated to the [...] a nd tobacco-related health factors from the [place] facility where the Encounter took place. Current Smoking Status This section includes the most current smoking, or tobacco -related health factor, from the [place] facility where the Encounter took place. Date/Time Current Smoking Status Comment Facility Mar 20, 2022 11:00 AM [facility]TO[facility]ACCO FOR[facility] USER [facility] Tobacco Use History This section includes a history of the smoking, or tobacco -related health factors, that were collected on or before the date of the Encoun ter. The data comes from the [place] facility where the Encounter took place. Date/Time Smoking Status/Tobacco Use Comment [facility] it Mar 20, 2022 11:00 AM VA-TOBACCO QUIT 15 YRS OR MORE [facility] Mar 13, 2021 10:00 AM VA-TOBACCO FORMER USER [facility] Mar 13, 2021 10:00 AM VA-TOBACCO QUIT 15 YRS OR MORE [facility] Dec 04, 2018 09:50 AM V16 TOBACCO USE SCREEN [facility] Dec 04, 2018 09:50 AM VA-TOBACCO FOR[facility] USER [facility] Dec 04, 2018 09:50 AM VA-TOBACCO QUIT 15 YRS OR MORE [facility] Advance Directives: All historical and current No Data Provided for This Section Radiology Reports: +/- 30 days of the encounter No Data Provided for This Section Pathology Reports: +/- 30 days of the encounter No Data Provided for This Section Encounter Notes: All associated encounter notes This section contains the clinical notes associated to the Encounter. Date/Time Encounter Note(s) Provider Source Nov 12, 2022 02:30 PM AUDIOLOGY ADMINISTRATIVE NOT E: LOCAL TITLE: AUDIOLOGY HEALTH ORTHOPEDICS TEACHER NOTE STANDARD TITLE: AUDIOLOGY ADMINISTRATIVE NOTE DATE OF NOTE: NOV 12, 2022@14:30 ENTRY DATE: NOV 12, 2022@14:30:49 AUTHOR: RELL PEREZ COSIGNER: ANDRIA AMBROSE URGENCY: STATUS: COMPLETED Date: NOV 12, 2022 ROBBI GARIBAY Dave 87 YEARS OLD HEARING AID CHECK APPOINTMENT S: Reason for Visit: can't hear out of left hearing aid O: Hearing aid(s) Issued: Make: Phonak Model: Audeo P90 312 Link/Tubin-P Domes/Slimtip: Cshell Filter Type: Cerustop Battery: 312 Rechargeable? No Serial number(s): Left [id number] Right [id number] Warranty Expiration date: 02/17/24 The hearing aids were cleaned and checked. The following procedures were performed: Wax Guard/Filter Replaced Earmolds cleaned Microphone opening cleaned Procedure codes: V5011 Fitting/Orientation/Checking of hearing aids A: states he cannot hear out of the left hearing aid. Hearing aids were cleaned, wax guards changed, and microphones brushed out. Both hearing aids in working order. Otoscope used and minimal wax in right ear and more in the left ear. I put the hearing aid s back in and the said they sound much better. I put the left in first by its self to see if he could hear out of it and he sated yes he could. [place] will let me know if he has anymore issues. Diagnosis codes: Z46.1 Fitting and adjustment of Hearing aid H90.3 Sensorineural hearing loss P:Follow up with support technician as needed /loki/ RELL Barber [facility] ORTHOPEDICS TEACHER Signed: 11/12/2022 14:34 /loki/ Derek ESTES STAFF KNIFE OPERATOR-[place] Cosigned: 11/12/2022 16:24 RELL PEREZ [facility]
[2023-03-07] MEDS: DOCUSATE SODIUM 100 MG (COLACE) CAP PO SCH ×2 (11:36→20:52)
[2023-03-07] MEDS: polyethylene glycoL POWDER 17 GM (MIRALAX) PACK PO SCH ×2 (11:37→20:52)
[2023-03-07] MEDS: SENNA W/DOCUSATE (SENOKOT S) TABLET PO SCH ×2 (11:37→20:52)
[2023-03-07 14:00] VITALS: BP 126/60
[2023-03-07] MEDS ORDERED: METO-451 PO ×2 (16:17→16:26)
[2023-03-07] MEDS ORDERED: PANT40TA2 PO (16:26)
[2023-03-07] MEDS ORDERED: APIX5TAB PO (16:26)
[2023-03-07] MEDS ORDERED: AMIO200T65 PO (16:40)
[2023-03-07] MEDS ORDERED: LACT1CAP7 PO (16:40)
[2023-03-07] MEDS ORDERED: MV-M1TAB2 PO (16:47)
[2023-03-07] MEDS ORDERED: MIDO10TA PO ×2 (16:47→16:51)
[2023-03-07] MEDS ORDERED: OLAN5TAB3 PO ×2 (16:47→16:51)
[2023-03-07] MEDS ORDERED: MIDODRINE 10 MG (PROAMATINE) TAB PO PRN (19:00)
[2023-03-07 20:37] VITALS: BP 129/73
[2023-03-07] MEDS ORDERED: OLANZapine 2.5 MG (ZyPREXA) TAB PO PRN (20:45)
[2023-03-07] MEDS ORDERED: AMIODARONE 200 MG (CORDARONE) TAB PO SCH (21:00)
[2023-03-07] MEDS: APIXABAN 5 MG (ELIQUIS) TABLET PO SCH (21:02)
[2023-03-07] MEDS: meTOprolol TARTRATE 50 MG (LOPRESSOR) TAB PO SCH (21:02)
[2023-03-07] MEDS: LACTOBACILLUS ACIDOPHILUS (PROBIOTIC) CAPSULE PO SCH (21:02)
[2023-03-08] MEDS: meTOprolol TARTRATE 50 MG (LOPRESSOR) TAB PO SCH ×3 (03:08→18:38)
[2023-03-08 06:05] LABS: BASOPHILS # (AUTO) 0.1 10^3/uL (0.0-0.1); BASOPHILS % (AUTO) 1 % (0-10); EOSINOPHILS # (AUTO) 0.2 10^3/uL (0.0-0.3); EOSINOPHILS % (AUTO) 2 % (0-10); HEMATOCRIT 32 % (40-54); HEMOGLOBIN 10.2 g/dL (13.3-17.7); LYMPHOCYTES # (AUTO) 1.6 10^3/uL (1.0-4.0); LYMPHOCYTES % (AUTO) 18 % (12-44); MEAN CORPUSCULAR HEMOGLOBIN 29 pg (25-34); MEAN CORPUSCULAR HGB CONC 32 g/dL (32-36); MEAN CORPUSCULAR VOLUME 90 fL (80-99); MEAN PLATELET VOLUME 10.3 fL (9.0-12.2); MONOCYTES # (AUTO) 0.8 10^3/uL (0.0-1.0); MONOCYTES % (AUTO) 9 % (0-12); NEUTROPHILS % (AUTO) 68 % (42-75); PLATELET COUNT 267 10^3/uL (130-400); WHITE BLOOD COUNT 8.9 10^3/uL (4.3-11.0)
[2023-03-08 06:26] LABS: ALBUMIN 2.5 GM/DL (3.2-4.5)
[2023-03-08 06:27] LABS: POTASSIUM 4.7 MMOL/L (3.6-5.0)
[2023-03-08 06:28] LABS: CALCIUM 8.6 MG/DL (8.5-10.1)
[2023-03-08 06:29] LABS: TOTAL PROTEIN 6.1 GM/DL (6.4-8.2)
[2023-03-08 06:31] LABS: BILIRUBIN,TOTAL 0.3 MG/DL (0.1-1.0)
[2023-03-08 06:33] LABS: CREATININE SERUM 0.62 MG/DL (0.60-1.30)
[2023-03-08] MEDS: LACTOBACILLUS ACIDOPHILUS (PROBIOTIC) CAPSULE PO SCH ×4 (06:50→20:34)
--- NOTE | 2023-03-08 07:35 | PM&R Progress Note ---
Subjective HPI/CC On Admission Date Seen by Provider: Mar 08, 2023 Time Seen by Provider: 12:00 Subjective/Events-last exam 03/08/2023: Patient doing a lot better Had a large bowel movement Oxygen maintained Supportive care we will continue Review of Systems General: Fatigue, Malaise Objective Exam Vital Signs Vital Signs Date Time Temp Pulse Resp B/P (MAP) Pulse Ox O2 Delivery O2 Flow Rate FiO2 03/08/23 15:43 97 Nasal Cannula 2.00 03/08/23 08:00 36.2 73 16 105/59 (74) Capillary Refill : General Appearance: No Apparent Distress, WD/WN, Chronically ill, Thin HEENT: PERRL/EOMI, Normal ENT Inspection, Pharynx Normal Neck: Full Range of Motion, Normal Inspection, Non Tender, Supple, Carotid Bruit Respiratory: Chest Non Tender, Lungs Clear, No Accessory Muscle Use, No Respiratory Distress, Decreased Breath Sounds Cardiovascular: Regular Rate, Rhythm, No Edema, No Gallop, No JVD, No Murmur, Normal Peripheral Pulses Gastrointestinal: Normal Bowel Sounds, No Organomegaly, No Pulsatile Mass, Non Tender, Soft Back: Normal Inspection, No CVA Tenderness, No Vertebral Tenderness Extremity: Normal Capillary Refill, Normal Inspection, Normal Range of Motion, Non Tender, No Calf Tenderness, No Pedal Edema Neurologic/Psychiatric: Alert, Oriented x3, No Motor/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, nutrition counselor II- XII Norm as Tested, Abnormal Gait, Depressed Affect, Motor Weakness (Severe weakness of all extremities 3/5) Skin: Normal Color, Warm/Dry Lymphatic: No Adenopathy Results/Procedures Lab Laboratory Tests 03/08/23 05:55 Patient resulted labs reviewed. FIM Transfers Therapy Code Descriptions/Definitions Functional [place] Measure: 0=Not Assessed/NA 4=Minimal Assistance 1=Total Assistance 5=Supervision or Setup 2=Maximal Assistance 6=Modified [place] 3=Moderate Assistance 7=Complete IndependenceSCALE: Activities may be completed with or without assistive devices. 6-Ssivzwplna-glvcxzp completes the activity by him/herself with no assistance from a helper. 5-Set-up or Clean-up Assistance-helper sets up or cleans up; patient completes activity. [place] assists only prior to or following the activity. 4-Supervision or Touching Assistance-helper provides verbal cues and/or touching/steadying and/or contact guard assistance as patient completes activity. Assistance may be provided throughout the activity or intermittently. 3-Partial/Moderate Assistance-helper does LESS THAN HALF the effort. [place] lifts, holds or supports trunk or limbs, but provides less than half the effort. 2-Substantial/Maximal Assistance-helper does MORE THAN HALF the effort. [place] lifts or holds trunk or limbs and provides more than half the effort. 2-Iigffagtf-nogvqb does ALL the effort. Patient does none of the effort to complete the activity. Or, the assistance of 2 or more helpers is required for the patient to complete the activity. If activity was not attempted, code reason: 7-Patient Refused. 9-Not Applicable-not attempted and the patient did not perform the activity before the current illness, exacerbation or injury. 10-Not Attempted due to Environmental Limitations-(lack of equipment, weather restraints, etc.). 88-Not Attempted due to Medical Conditions or Safety Concerns. 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
[2023-03-08 08:00] VITALS: BP 105/59
[2023-03-08] MEDS: polyethylene glycoL POWDER 17 GM (MIRALAX) PACK PO SCH ×3 (08:16→20:34)
[2023-03-08] MEDS: SENNA W/DOCUSATE (SENOKOT S) TABLET PO SCH ×2 (08:34→20:35)
[2023-03-08] MEDS: AMIODARONE 200 MG (CORDARONE) TAB PO SCH (08:34)
[2023-03-08] MEDS: APIXABAN 5 MG (ELIQUIS) TABLET PO SCH ×2 (08:34→20:34)
[2023-03-08] MEDS: DOCUSATE SODIUM 100 MG (COLACE) CAP PO SCH ×2 (08:34→20:34)
[2023-03-08] MEDS: PANTOPRAZOLE 40 MG (PROTONIX) TAB PO SCH (08:34)
[2023-03-08] MEDS ORDERED: PANTOPRAZOLE 40 MG (PROTONIX) TAB PO SCH (09:00)
[2023-03-08 18:34] VITALS: BP 114/56
[2023-03-08 20:00] VITALS: BP 112/68
[2023-03-09] MEDS: meTOprolol TARTRATE 50 MG (LOPRESSOR) TAB PO SCH ×3 (03:12→17:29)
[2023-03-09] MEDS: LACTOBACILLUS ACIDOPHILUS (PROBIOTIC) CAPSULE PO SCH ×4 (06:56→21:04)
[2023-03-09] MEDS: polyethylene glycoL POWDER 17 GM (MIRALAX) PACK PO SCH ×2 (07:50→21:05)
[2023-03-09] MEDS: DOCUSATE SODIUM 100 MG (COLACE) CAP PO SCH ×2 (07:51→21:05)
[2023-03-09] MEDS: SENNA W/DOCUSATE (SENOKOT S) TABLET PO SCH ×2 (07:51→21:05)
[2023-03-09] MEDS: APIXABAN 5 MG (ELIQUIS) TABLET PO SCH ×2 (07:56→21:05)
[2023-03-09] MEDS: AMIODARONE 200 MG (CORDARONE) TAB PO SCH (07:56)
[2023-03-09] MEDS: PANTOPRAZOLE 40 MG (PROTONIX) TAB PO SCH (07:56)
[2023-03-09 08:00] VITALS: BP 131/63
--- NOTE | 2023-03-09 10:37 | Physical Therapy Evaluation ---
PT Evaluation-General Medical Diagnosis Admission Date Mar 07, 2023 at 07:04 Medical Diagnosis: Critical illness myopathy Onset Date: January 31, 2023 Therapy Diagnosis Therapy Diagnosis: decreased endurance, balance, core/hip/back strength, gt & transfers Precautions Precautions/Isolations: Aspiration, Fall Prevention, Standard Precautions, Pressure Ulcer Weight Bear Status Right Lower Extremity: Right Full Weight Bearing Left Lower Extremity: Left Full Weight Bearing (R) knee is arthritic and frequently "catches" or "gives away" Referral Physician: Luis Reason for Referral: Evaluation/Treatment Medical History Pertinent Medical History: CAD, HTN Current History This is an 87-year-old male clinic patient of Dr Ortiz Zepeda in [place] who presents from [facility] following an extensive hospital stay which include acute hypoxic respiratory failure secondary to COVID with bilateral infiltrates, status post intubation until extubated on 02/02/2023 /c transition to BiPAP. He has a history of esophageal stenosis with stricture status post EGD and dilatation on 12/10/2022. He does have a history of ischemic colitis but that seems to be stable. He does have atrial fibrillation on amiodarone and ant icoagulation. He is currently using oxygen at 2L per nc. Reviewed History: Yes Social History Home: 2 story cabin - can live on 1 level Current Living Status: Alone Entry Into Home: Stairs With Railing PT Steps Into Home: 3 PT Steps Inside Home: 12 (1 flight) Daughter lives on property (on the other side of the garden). Prior Prior Level of Function SCALE: Activities may be completed with or without assistive devices. 5-Nrmrndvzct-kygyyea completes the activity by him/herself with no assistance from a helper. 5-Set-up or Clean-up Assistance-helper sets up or cleans up; patient completes activity. [place] assists only prior to or following the activity. 4-Supervision or Touching Assistance-helper provides verbal cues and/or touching/steadying and/or contact guard assistance as patient completes activity. Assistance may be provided throughout the activity or intermittently. 3-Partial/Moderate Assistance-helper does LESS THAN HALF the effort. [place] lifts, holds or supports trunk or limbs, but provides less than half the effort. 2-Substantial/Maximal Assistance-helper does MORE THAN HALF the effort. [place] lifts or holds trunk or limbs and provides more than half the effort. 4-Inhzgohco-ieoipv does ALL the effort. Patient does none of the effort to complete the activity. Or, the assistance of 2 or more helpers is required for the patient to complete the activity. If activity was not attempted, code reason: 7-Patient Refused. 9-Not Applicable-not attempted and the patient did not perform the activity before the current illness, exacerbation or injury. 10-Not Attempted due to Environmental Limitations-(lack of equipment, weather restraints, etc.). 88-Not Attempted due to Medical Conditions or Safety Concerns. Bed Mobility: 6 Transfers (B,C,W/C): 6 Gait: 6 (No AD) Stairs: 6 Wheelchair Mobility: 9 Indoor Mobility (Ambulation): Independent Stairs: Independent Prior Devices Use: None Has a FWW at home but states it is old. Patient states he likes to garden. Also states, however, that he wass unable to get down on the ground because of his knees. He was also unable to get up from the ground by himself PT Evaluation-Current Subjective 87 year old male. Pleasant and cooperative. He is a [employer] - retired from the [employer] in [place]. Served in the [place] war. He states that he was in [place] for 1 week, but has had a lengthy hospitalization that began in January 2023. Pain Section J - Health Conditions 1. Rarely or not at all 2. Occasionally 3. Frequently 4. Almost constantly 8. Unable to answer Pain Effect on Sleep: 1 Pain Interference with Therapy: 3 ((R) knee pain of 6/10 at end of gait during evaluation (76')) Pain Interference w/Day-to-Day: 3 Pt/Family Goals Patient hopes to return home with assist of his daughter. Objective Patient Orientation: Person, Place Attachments: Oxygen O2 at 2L per nc. ROM/Strength ROM Upper Extremities Deferred to OT. ROM Lower Extremities WFL ROM and (B) hips/knees/ankles for functional transfers and gait. Strength Upper Extremities Deferred to OT. Strength Lower Extremities (R) LE: ankle 5/5, knee 4/5 ext, 4/5 flexion (arthritic knee pain), hip flexion 3+/5, hip abd/add 3+/5 - proximal hip weaknss (L) LE: ankle 5/5, knee 4+/5, flexion 4/5, hip flexion 3+/5, hip abd/add 3+/5 - proximal hip weakness Integumentary/Posture Posture Kyphotic posture. Sensory Vision: Wears Glasses Hearing: Functional Hand Dominance: Right Sensation Right Upper Extremit: Intact Sensation Left Upper Extremity: Intact Sensation Right Lower Extremit: Intact Sensation Left Lower Extremity: Intact Transfers Roll Left & Right (QC): 5 (with bedrail) Sit to Lying (QC): 5 (with bed rail) Lying to Sitting/Side of Bed(Q: 5 (with bedrail) Sit to Stand (QC): 3 (min (A) from w/c, v/c for hand placement) Chair/Fjm-jv-Vnjnk Xfer(QC): 3 (Min (A) with FWW) Toilet Transfer (QC): 3 (Min (A) with FWW) Car Transfer (QC): 3 (min (A) with FWW and v.c. for hand placement) Gait Does the Patient Walk?: Yes Mode of Locomotion: Walk Anticipated Mode of Locomotion: Walk Walk 10 feet (QC): 3 (Min (A) with FWW, slow steven, forward flexed at waist) Walk 50 ft with 2 Turns(QC): 3 (min (A) with FWW and O2 tank) Walk 150 ft (QC): 88 (enduranc deficit and (R) knee pain limit distance) Walking 10ft/uneven surface-QC: 3 (Min (A) with FWW) Distance: 76', 50' Gait Assistive Device: FWW Comments/Gait Description Slow, deliberate steven. Gait speed: 6.1/38.8 sec = 0.16 m/sec = 100% impairment Wheelchair Training Does the Pt Use a Wheelchair?: Yes Distance: 50 Wheel 50 ft with 2 turns (QC): 3 (Min (A) to coordinate UE's and LE's together - wants to hold feet off floor, endurance limits UE propulsion) Wheel 150 ft (QC): 88 (endurance deficit limits distance) Stairs 1 Step (curb) (QC): 3 (min (A) with FWW with cues for sequence) 4 Steps (QC): 3 (min (A) with FWW with cues for sequence) 12 Steps (QC): 88 (NT due to endurance deficit) Walking Assistive Device: Walker Balance Sitting Static: Good Sitting Dynamic: Fair Standing Static: Good Standing Dynamic: Fair Picking up an Object (QC): 5 (using deblocker. ) Special Test Comments In standing, demonstrates core weakness/lumbar weakness with balance while emptying bladder -- if patient leans slightly forward, unable to right himself without use of hand on grab bar. Assessment/Needs 87 year old male s/p lengthy hospitalization with resultant endurance deficit, core/proximal weakness which affects balance and gait/transfers and higher level stair/curb ambulation. Patient would benefit from PT for hip/core/back strengthening, activity tolerance activities, gait/transfers, stairs in order to maximize function and return patient to his PLOF. Rehab Potential: Good Equipment Needs Possibly a new FWW, as he states the one at home is "old and wide". PT Tax Form Preparer Goals Correction Goals PT Tax Form Preparer Goals Time Frame: Mar 21, 2023 Roll Left to Right (QC): 6 Sit to Lying (QC): 6 Lying-Sitting on Side/Bed(QC): 6 Sit to Stand (QC): 6 Chair/Bzo-ci-Xkjvl Xfer(QC): 6 (/c FWW) Toilet/Commode Transfer (QC): 6 Car Transfer (QC): 6 Does the Patient Walk: Yes Walk 10 feet (QC): 6 (/c FWW) Walk 10ft-Uneven Surface(QC): 6 (/c FWW) Walk 50ft with 2 Turns (QC): 6 (/c FWW with gait speed of .26 m/sec or better ) Walk 150 ft (QC): 6 (/c FWW) Does the Pt use WC or Scooter?: Yes Wheel 50 feet with 2 turns (QC: 6 Type: Manual Wheel 150 feet: 6 Type: Manual 1 Step (curb) (QC): 6 (/c FWW) 4 Steps (QC): 6 (with hand rails) 12 Steps (QC): 6 (/c handrails) Picking up an Object (QC): 6 (with deblocker) all goals with personal portable O2 tank if needed at D/C. PT Plan Problem List Problem List: Activity Tolerance, Functional Strength, Safety, Balance, Gait, Transfer Treatment/Plan Treatment Plan: Continue Plan of Care Treatment Plan: Bed Mobility, Education, Functional Activity Beata, Functional Strength, Group Therapy, Gait, Safety, Therapeutic Exercise, Transfers Treatment Duration: Mar 21, 2023 Frequency: At least 5 of 7 days/Wk (IRF) Estimated Hrs Per Day: Other (1 - 1.5 hrs per day) Patient and/or Family Agrees t: Yes Safety Risks/Education Patient Education: Transfer Techniques, Steps Teaching Recipient: Patient Teaching Methods: Demonstration, Discussion Response to Teaching: Reinforcement Needed Discussed safety techniques/hand placement for sit<>stand. Discussed correct sequencing for stairs, and determining (R) vs (L) LE as good/bad LE for sequencing. Discharge Recommendations Plan P.T. while on ARU 1 - 1.5 hrs per day, 5 out of 7 days for GT, FA, EX, GRP as needed to improve strength, activity tolerance, balance gait/steps, transfers, bed mobility for return home at [facility]. Target Placement Home with daughter's assist Time Time In: 915 Time Out: 1015 DATE: Mar 09, 2023 Total Billed Treatment Time: 60 Total Billed Treatment EVM - 60' Nadia Willis PT Mar 09, 2023 10:37
--- NOTE | 2023-03-09 11:11 | Occupational Therapy Eval ---
OT Evaluation-General/PLF Medical Diagnosis Admission Date Mar 07, 2023 at 07:04 Medical Diagnosis: Critical illness myopathy Onset Date: Mar 03, 2023 Therapy Diagnosis Therapy Diagnosis: weakness, debility, low endurance Precautions Precautions/Isolations: Aspiration, Fall Prevention, Standard Precautions, Pressure Ulcer Weight Bear Status Weight Bearing Restriction: Weight Bearing/Tolerated Referral Referral Reason: Activity Tolerance, Self Care, Evaluation/Treatment, Strengthening/ROM Medical History Pertinent Medical History: Atrial Fib, CAD, HTN Additional Medical History 87-year-old male clinic patient of Dr Ortiz Zepeda in [place] who presents from [facility] following an extensive hospital stay which include acute hypoxic respiratory failure secondary to COVID with bilateral infiltrates status post intubation until extubated on 02/02/2023 transition to BiPAP. Small bowel obstruction, NG tube, titrated 02 from 10 liters mask to 2 liters NC who presents to the inpatient rehab unit in need of aggressive rehab. He has a history of esophageal stenosis with stricture status post EGD and dilatation on 12/10/2022. He is eating a regular diet. He does have a history of ischemic colitis but that seems to be stable. He does have atrial fibrillation on amiodarone and anticoagulation. Prior level of functioning was independent without any AD but currently he will require aggressive rehab in order to return back to somewhat near baseline. He is currently using oxygen. Current History LTKA 2007, Right knee is giving him some trouble does not want to do a TKA. NO AD at home for ambulation, No 02 at home, has not driven since December. Urine urgency since [place] removal. Social History Home: Single Level (cabin w/ loft bedroom and bathroom) Current Living Status: Alone Entry Into Home: Level Entry uses bottom bedroom and bathroom. Wood stove and fireplace ADL-Prior Level of Function SCALE: Activities may be completed with or without assistive devices. 0-Mymnzdcbbb-jkfdhwt completes the activity by him/herself with no assistance from a helper. 5-Set-up or Clean-up Assistance-helper sets up or cleans up; patient completes activity. [place] assists only prior to or following the activity. 4-Supervision or Touching Assistance-helper provides verbal cues and/or touching/steadying and/or contact guard assistance as patient completes activity. Assistance may be provided throughout the activity or intermittently. 3-Partial/Moderate Assistance-helper does LESS THAN HALF the effort. [place] lifts, holds or supports trunk or limbs, but provides less than half the effort. 2-Substantial/Maximal Assistance-helper does MORE THAN HALF the effort. [place] lifts or holds trunk or limbs and provides more than half the effort. 9-Cpnkzaglz-ypsfsu does ALL the effort. Patient does none of the effort to complete the activity. Or, the assistance of 2 or more helpers is required for the patient to complete the activity. If activity was not attempted, code reason: 7-Patient Refused. 9-Not Applicable-not attempted and the patient did not perform the activity before the current illness, exacerbation or injury. 10-Not Attempted due to Environmental Limitations-(lack of equipment, weather restraints, etc.). 88-Not Attempted due to Medical Conditions or Safety Concerns. Self Care: Independent Functional Cognition: Independent DME/Equipment: Shower, Tub/Shower Daughter lives in house on property Hired operations specialists to clean cabin. Occupation: retired [employer] Drive Self: Yes (December) Leisure Interests: Gardening OT Current Status Subjective Sleeping on OT arrival, easily aroused, agreeable to OT Pain Numeric Pain Scale: 0-No Pain Comment: Skin laceration covereed on Left elbow Mental Status/Objective Patient Orientation: Person, Place ([place]), Time (11 am), Situation (Transfer from [place] and prior to [place] in [facility]) Attachments: Oxygen (2 liter NC) Current Glasses/Contacts: Yes Hearing Aids: Yes (bilateral) Upper Extremity ROM BUE ROM WFLS, ER of Left shoulder somewhat limited does not impair ADLS or functional activity per patient report Upper Extremity Coordination Slow responses and cautions movements Upper Extremity Strength +3/5, does not sustain MM strength w/ tasks, requires rest periods. ADL-Treatment Eating (QC): 5 Oral Hygiene (QC): 5 Shower/Bathe Self (QC): 3 Upper Body Dressing (QC): 3 Lower Body Dressing (QC): 3 On/Off Footwear (QC): 4 Toileting Hygiene (QC): 3 Education OT Patient Education: Correct positioning, Energy conservation, Home exercise program, Modified ADL techniques, Progress toward Goal/Update tx plan, Purpose of tx/functional activities, Reviewed precautions, Rehab process, Safety issues, Transfer techniques, Use of adapted equipment Teaching Recipient: Patient Teaching Methods: Demonstration, Discussion Response to Teaching: Verbalize Understanding, Reinforcement Needed BIMS CAM BIMS Expression of Ideas and Wants: Without Difficulty Understanding Verbal Content: Understands Brief Interview/Mental Status: Yes IRF SANTI BIMS: IRF SANTI BIMS Response (Comments) Value Repitition of Three Words Three 3 Recalls Socks Yes, No Cue Required 2 Recalls Blue Yes, No Cue Required 2 Recalls Bed Yes, No Cue Required 2 Year Correct 3 Day Correct 1 Total 13 Patient Normally Able to Recal: That he/she in a hsp Should Staff Asses. Mental St.: No CAM Mental Status Change/Baseline: 0 Inattention: 0 Disorganized thinkin Altered level of consciousness: 0 OT Short Term Goals Short Term Goals Time Frame: Mar 14, 2023 Eatin Oral hygiene: 6 Upper body dressin OT Retirement Goals Retirement Goals Time Frame: Apr 03, 2023 Eating (QC): 6 Oral Hygiene (QC): 6 Toileting Hygiene (QC): 6 Shower/Bathe Self (QC): 6 Upper Body Dressing (QC): 6 Lower Body Dressing (QC): 6 On/Off Footwear (QC): 6 1=Demonstrate adherence to instructed precautions during ADL tasks. 2=Patient will verbalize/demonstrate understanding of assistive devices/modifications for ADL. 3=Patient will improve strength/tolerance for activity to enable patient to perform ADL's. OT Education/Plan Problem List/Assessment Assessment: Decreased Activ Tolerance, Decreased UE Strength, Impaired Funct Balance, Impaired I ADL's, Impaired Self-Care Skills Discharge Recommendations Plan/Recommendations: Continue POC Treatment Plan/Plan of Care Treatment,Training & Education: Yes Patient would benefit from OT for education, treatment and training to promote independence in ADL's, mobility, safety and/or upper extremity function for AD L's. Plan of Care: ADL Retraining, Concurrent Therapy, Functional Mobility, Group Exercise/Act as Ind, UE Funct Exercise/Act Treatment Duration: Apr 03, 2023 Frequency: At least 5 of 7 days/Wk (IRF) Estimated Hrs Per Day: 1.5 hours per day Agreement: Yes Rehab Potential: Good Time Start Time: 11:00 Stop Time: 11:20 DATE: Mar 09, 2023 Total Time Billed (hr/min): 20 Billed Treatment Time EVM 20 min SAHWIN PRATT OT Mar 09, 2023 11:11
--- NOTE | 2023-03-09 11:48 | PM&R Progress Note ---
Subjective HPI/CC On Admission Date Seen by Provider: Mar 09, 2023 Time Seen by Provider: 12:30 Subjective/Events-last exam 03/09/2023: Patient doing well Maintained on oxygen Incentive spirometer provided Supportive care we will continue Bowels are moving 03/08/2023: Patient doing a lot better Had a large bowel movement Oxygen maintained Supportive care we will continue Review of Systems General: Fatigue, Malaise Objective Exam Vital Signs Vital Signs Date Time Temp Pulse Resp B/P (MAP) Pulse Ox O2 Delivery O2 Flow Rate FiO2 03/10/23 06:22 Nasal Cannula 2.00 03/09/23 20:10 36.0 65 20 111/62 (78) 100 Capillary Refill : General Appearance: No Apparent Distress, WD/WN, Chronically ill, Thin HEENT: PERRL/EOMI, Normal ENT Inspection, Pharynx Normal Neck: Full Range of Motion, Normal Inspection, Non Tender, Supple, Carotid Bruit Respiratory: Chest Non Tender, Lungs Clear, No Accessory Muscle Use, No Respiratory Distress, Decreased Breath Sounds Cardiovascular: Regular Rate, Rhythm, No Edema, No Gallop, No JVD, No Murmur, Normal Peripheral Pulses Gastrointestinal: Normal Bowel Sounds, No Organomegaly, No Pulsatile Mass, Non Tender, Soft Back: Normal Inspection, No CVA Tenderness, No Vertebral Tenderness Extremity: Normal Capillary Refill, Normal Inspection, Normal Range of Motion, Non Tender, No Calf Tenderness, No Pedal Edema Neurologic/Psychiatric: Alert, Oriented x3, No Motor/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, environmental emergencies planner II- XII Norm as Tested, Abnormal Gait, Depressed Affect, Motor Weakness (Severe weakness of all extremities 3/5) Skin: Normal Color, Warm/Dry Lymphatic: No Adenopathy Results/Procedures Lab Patient resulted labs reviewed. FIM Transfers Therapy Code Descriptions/Definitions Functional [place] Measure: 0=Not Assessed/NA 4=Minimal Assistance 1=Total Assistance 5=Supervision or Setup 2=Maximal Assistance 6=Modified [place] 3=Moderate Assistance 7=Complete IndependenceSCALE: Activities may be completed with or without assistive devices. 0-Kdbsowdaqp-aiuowqa completes the activity by him/herself with no assistance from a helper. 5-Set-up or Clean-up Assistance-helper sets up or cleans up; patient completes activity. [place] assists only prior to or following the activity. 4-Supervision or Touching Assistance-helper provides verbal cues and/or touching/steadying and/or contact guard assistance as patient completes activity. Assistance may be provided throughout the activity or intermittently. 3-Partial/Moderate Assistance-helper does LESS THAN HALF the effort. [place] lifts, holds or supports trunk or limbs, but provides less than half the effort. 2-Substantial/Maximal Assistance-helper does MORE THAN HALF the effort. [place] lifts or holds trunk or limbs and provides more than half the effort. 4-Dvbokumkq-fgqioy does ALL the effort. Patient does none of the effort to complete the activity. Or, the assistance of 2 or more helpers is required for the patient to complete the activity. If activity was not attempted, code reason: 7-Patient Refused. 9-Not Applicable-not attempted and the patient did not perform the activity before the current illness, exacerbation or injury. 10-Not Attempted due to Environmental Limitations-(lack of equipment, weather restraints, etc.). 88-Not Attempted due to Medical Conditions or Safety Concerns. Roll Left to Right (QC): 5 (with bedrail) Sit to Lying (QC): 5 (with bed rail) Sit to Stand (QC): 3 (min (A) from w/c, v/c for hand placement) Chair/Mqy-aj-Mifby Xfer(QC): 3 (Min (A) with FWW) Car Transfer (QC): 3 (min (A) with FWW and v.c. for hand placement) Gait Training Does the Patient Walk?: Yes Walk 10 feet (QC): 3 (Min (A) with FWW, slow steven, forward flexed at waist) Walk 50 ft with 2 Turns(QC): 3 (min (A) with FWW and O2 tank) Walk 150 ft (QC): 88 (enduranc deficit and (R) knee pain limit distance) Walking 10ft/uneven surface-QC: 3 (Min (A) with FWW) Gait Assistive Device: FWW Wheelchair Training Does the Pt Use a Wheelchair?: Yes Distance: 50 Wheel 50 ft with 2 turns (QC): 3 (Min (A) to coordinate UE's and LE's together - wants to hold feet off floor, endurance limits UE propulsion) Wheel 150 ft (QC): 88 (endurance deficit limits distance) Stair Training 1 Step (curb) (QC): 3 (min (A) with FWW with cues for sequence) 4 Steps (QC): 3 (min (A) with FWW with cues for sequence) 12 Steps (QC): 88 (NT due to endurance deficit) Balance Picking up an Object (QC): 5 (using economics department chair. ) Assessment/Plan Assessment and Plan Assess & Plan/Chief Complaint Assessment: Critical illness myopathy with proximal muscle weakness Status postacute hypoxic respiratory failure due to COVID with bilateral infiltrates Atrial fibrillation History of ischemic colitis Advanced age Plan: Supportive care Aggressive rehab Fall risk Wean oxygen 03/08/2023: Supportive care Maintain on oxygen DC catheter tomorrow morning 03/09/2023: Supportive care (1) Myopathy DAISY AYON DO Mar 09, 2023 11:48
--- NOTE | 2023-03-09 11:49 | Individualized Plan of Care ---
Individualized Plan of Care Rehab Nursing IPOC Order Admission Date Mar 07, 2023 at 07:04 Current Orders Orders Admission Order(Inpt,Obs,Sdc) (03/07/23 07:02) Vital Signs: Per Unit Policy ( 08,16,00 (03/07/23 07:02) Charles Walker 09,21 (03/07/23 07:02) Sequential Compression Device (03/07/23 07:02) Rehab Nursing Orders-Ipoc (03/07/23 07:02) Physical Therapy Rehab Orders (03/07/23 07:02) Occupational Therapy Rehab Ord (03/07/23 07:02) Speech Therapy Rehab Orders (03/07/23 07:02) Cbc With Automated Diff (03/08/23 06:00) Comprehensive Metabolic Panel (03/08/23 06:00) Precautions (Aru) (03/07/23 07:02) Weekly Weight WEEK (03/07/23 07:02) Rehab-Intensity Of Therapy (03/07/23 07:02) Initiate Admission Nursing Pro .admission (03/07/23 07:02) Alprazolam Tablet (Xanax Tablet) (03/07/23 07:15) Calcium Carbonate Chew Tablet (Antacid C (03/07/23 07:15) Diphenhydramine Tablet (Benadryl Tablet) (03/07/23 07:15) Docusate Sodium Capsule (Colace Capsule) (03/07/23 09:00) Docusate Sodium Capsule (Colace Capsule) (03/07/23 07:15) Bisacodyl Suppository (Dulcolax Supposit (03/07/23 07:15) Lactulose Oral Solution (Enulose Oral So (03/07/23 07:15) Na Phos/Na Biphos Enema (Fleet Enema Alberto (03/07/23 07:15) Guaifenesin/Codeine Syrup (Robitussin Ac (03/07/23 07:15) Loperamide Tablet (Imodium Tablet) (03/07/23 07:15) Melatonin Tablet (Melatonin Tablet) (03/07/23 07:15) Polyethylene Glycol Powder Pkt (Miralax (03/07/23 09:00) Ondansetron Oral Dissolve Tab (Zofran (03/07/23 07:15) Senna S Tablet (Senokot S Tablet) (03/07/23 09:00) Acetaminophen Tablet/Caplet (Tylenol T (03/07/23 07:15) Initiate Admission Nursing Pro .admission (03/07/23 07:02) Chief Dispatcher-Inpt Rehab Con (03/07/23 07:02) General/Regular (03/07/23 Lunch) Admission Arrival Bed Request (03/07/23 11:21) Pantoprazole Tablet (Protonix Tablet) (03/08/23 09:00) Amiodarone Tablet (Cordarone Tablet) (03/07/23 21:00) Ensure Hi Protein Variety (03/07/23 16:51) Code/Resuscitation (03/07/23 16:53) Oxygen-Administer 07,19 (03/07/23 16:53) Amiodarone Tablet (Cordarone Tablet) (03/08/23 09:00) Apixaban Tablet (Eliquis Tablet) (03/07/23 21:00) Lactobacillus Acidophilus Cap (Acidophil (03/07/23 21:00) Metoprolol Tartrate (Ir) Tab (Lopressor (03/07/23 19:00) Midodrine Tablet (Proamatine) (03/07/23 19:00) Pantoprazole Tablet (Protonix Tablet) (03/08/23 09:00) Olanzapine Tablet (Zyprexa Tablet) (03/07/23 20:45) Transfer - Bed/Room/Location (03/08/23 10:32) Catheter(Urinary) Discontinue (03/09/23 07:00) Patient Visit (03/09/23 ) Pt Eval Moderate Complexity (03/09/23 ) Incentive Spirometry Initial (03/09/23 12:16) Incentive Spirometry (Nursing) Q2H (03/09/23 12:16) Patient Visit (03/09/23 ) Speech Sound Lang Comp (03/09/23 ) Enoxaparin Injection (Lovenox Injection) (03/10/23 07:15) Pharmacy Consult/Message (03/10/23 07:10) Rehab Nursing Orders: Ongoing Assess. of Cognitive Status, Ongoing Assess. of Function Status, Bladder Management, Bladder Scan, Bladder Training, Bowel Management, Bowel Training, Disease Management & Educaiton, DVT Prophylaxis, Fall Prevention, Fluid/Electrolyte/Nutrition Mgmt, Infection Prevention, Me dication Management & Education, Management of Risks & Complications, Management of Skin Intergrity, Nutrition Management, Pain Management, Patient/Family Support, Safety Management Intensity of Therapy to be met Patient to be seen: Min.3h per day/5 of 7d PT IPOC Problem List: Activity Tolerance, Functional Strength, Safety, Balance, Gait, Transfer Treatment Plan: Continue Plan of Care Bed Mobility, Education, Functional Activity Beata, Functional Strength, Group Therapy, Gait, Safety, Therapeutic Exercise, Transfers Treatment Duration: Mar 21, 2023 Frequency: At least 5 of 7 days/Wk (IRF) Estimated Hrs Per Day: Other (1 - 1.5 hrs per day) OT IPOC Problems: Decreased Activ Tolerance, Decreased Safety Aware, Decreased UE Strength, Dependent Transfers, Impaired Bed Mobility, Impaired Cognition, Impaired Coordination OT Treatment, Training and Edu: Yes Plan of Care: ADL Retraining, Caregiver Training, Cognitive Retraining, Concurrent Therapy, Functional Mobility, Group Exercise/Act as Ind Treatment Duration: Mar 09, 2023 Frequency: Modified Program (IRF) Estimated Hrs Per Day: Other ST IPOC Speech Therapy Treatment Plan: Discontinue ST Treatment Duration: Mar 09, 2023 Frequency: Modified Program (IRF) Estimated Hrs Per Day: Other Chief Dispatcher/Case Mgmt Chief Dispatcher/Case Managemen: Discharge Planning Dietitian/Bottle Capping Machine Operator Dietitian/Bottle Capping Machine Operator to monitor nutritional status and make changes and/or recommendations as needed and work with speech pathology on dietary upgrades as the occur. Physician IPOC Medical Issues being managed closely and that require the 24 hour availability of a physician: Recent COVID with acute hypoxic respiratory failure with continued use of supplemental oxygen along with a chronic cough and trial fibrillation with oral anticoagulation will require close monitoring for decompensation Medical Issues: Bowel/Bladder Function, DVT Prophylaxis, Falls Precautions, Fluid/Electrolyte/Nutrition Balance, Infection Protection, Pain Management Brief Synthesis of Preadmission Screen, Post-Admission Evaluation, and Therapy Evaluations: PT and OT will focus on regaining function with use of assistive devices and help improve independence in ADLs in order to return home Medical Prognosis: Good Anticipated Length of Stay: 10 days DAISY AYON DO Mar 09, 2023 11:49
--- NOTE | 2023-03-09 12:12 | Occupational Ther Daily Note ---
OT Current Status-Daily Note Subjective Pt alert, sitting in recliner. Pt agrees to therapy. No c/o pain at this time, only fatigue. Mental Status/Objective Patient Orientation: Person, Place, Time, Situation Attachments: Oxygen (2L) ADL-Treatment Pt agrees to shower. Pt ambulates with FWW with CGA, knee has tendency to buckle without warning. SBA for shower while pt using grabbars, hand held s hower and shower bench to complete shower. Set up for UBD. Assist to thread R foot into pants/underwear then CGA while pt hikes pants over hips. Max A for footwear. Pt demonstrates ability to complete oral care while sitting, independently. Independent with eating. Pt demonstrates ability to complete toileting with CGA. After session, pt sitting in recliner with call light/phone in reach. All needs met in room. Therapy Code Descriptions/Definitions Functional [place] Measure: 0=Not Assessed/NA 4=Minimal Assistance 1=Total Assistance 5=Supervision or Setup 2=Maximal Assistance 6=Modified [place] 3=Moderate Assistance 7=Complete IndependenceSCALE: Activities may be completed with or without assistive devices. 9-Ovlshfzdvw-oqvcrtz completes the activity by him/herself with no assistance from a helper. 5-Set-up or Clean-up Assistance-helper sets up or cleans up; patient completes activity. [place] assists only prior to or following the activity. 4-Supervision or Touching Assistance-helper provides verbal cues and/or t ouching/steadying and/or contact guard assistance as patient completes activity. Assistance may be provided throughout the activity or intermittently. 3-Partial/Moderate Assistance-helper does LESS THAN HALF the effort. [place] lifts, holds or supports trunk or limbs, but provides less than half the effort. 2-Substantial/Maximal Assistance-helper does MORE THAN HALF the effort. [place] lifts or holds trunk or limbs and provides more than half the effort. 4-Bfdtxlyeq-dctskp does ALL the effort. Patient does none of the effort to complete the activity. Or, the assistance of 2 or more helpers is required for the patient to complete the activity. If activity was not attempted, code reason: 7-Patient Refused. 9-Not Applicable-not attempted and the patient did not perform the activity before the current illness, exacerbation or injury. 10-Not Attempted due to Environmental Limitations-(lack of equipment, weather restraints, etc.). 88-Not Attempted due to Medical Conditions or Safety Concerns. Pt takes increased time to complete all tasks due to lengthy recovery breaks throughout session. OT Short Term Goals Short Term Goals Time Frame: Mar 14, 2023 Eatin Oral hygiene: 6 Upper body dressin OT Nursing Home Goals Conveyor Installer Goals Time Frame: Apr 03, 2023 Acute change in mental status: 0 Inattention: 0 Disorganized thinkin Altered level of consciousness: 0 Eating (QC): 6 Oral Hygiene (QC): 6 Toileting Hygiene (QC): 6 Shower/Bathe Self (QC): 6 Upper Body Dressing (QC): 6 Lower Body Dressing (QC): 6 On/Off Footwear (QC): 6 1=Demonstrate adherence to instructed precautions during ADL tasks. 2=Patient will verbalize/demonstrate understanding of assistive devices/modifications for ADL. 3=Patient will improve strength/tolerance for activity to enable patient to perform ADL's. OT Education/Plan Problem List/Assessment Assessment: Decreased Activ Tolerance, Decreased UE Strength, Impaired Funct Balance, Impaired Self-Care Skills Discharge Recommendations Plan/Recommendations: Continue POC Treatment Plan/Plan of Care Patient would benefit from OT for education, treatment and training to promote independence in ADL's, mobility, safety and/or upper extremity function for ADL's. Plan of Care: ADL Retraining, Concurrent Therapy, Functional Mobility, Group Exercise/Act as Ind, UE Funct Exercise/Act Treatment Duration: Apr 03, 2023 Frequency: At least 5 of 7 days/Wk (IRF) Estimated Hrs Per Day: 1.5 hours per day Agreement: Yes Rehab Potential: Good Time Start Time: 11:30 Stop Time: 12:15 DATE: Mar 09, 2023 Total Time Billed (hr/min): 45 Billed Treatment Time 1 visit-ADL 3 (45 min) EVERARDO HOLBROOK Mar 09, 2023 12:12
--- NOTE | 2023-03-09 12:49 | ST Cognitive Linguistic Eval ---
Speech Evaluation-General Medical Diagnosis Critical illness myopathy Onset Date: January 31, 2023 Therapy Diagnosis Therapy Diagnosis: WNL Cognition Precautions Precautions/Isolations: Fall Prevention, Standard Precautions Referral Referring Physician: Dr. Smith Reason for Referral: Evaluation/Treatment Medical History Pertinent Medical History: Atrial Fib, CAD, HTN 87-year-old male clinic patient of Dr Ortiz Zepeda in [place] who presents from [facility] following an extensive hospital stay which include acute hypoxic respiratory failure secondary to COVID with bilateral infiltrates status post intubation until extubated on 02/02/2023 transition to BiPAP. Small bowel obstruction, NG tube, titrated 02 from 10 liters mask to 2 liters NC who presents to the inpatient rehab unit in need of aggressive rehab. He has a history of esophageal stenosis with stricture status post EGD and dilatation on 12/10/2022. He is eating a regular diet. He does have a history of ischemic colitis but that seems to be stable. He does have atrial fibrillation on amiodarone and anticoagulation. Prior level of functioning was independent without any AD but currently he will require aggressive rehab in order to return back to somewhat near baseline. He is currently using oxygen. Current History LTKA 2007, Right knee is giving him some trouble does not want to do a TKA. NO AD at home for ambulation, No 02 at home, has not driven since December. Urine urgency since Romero removal. Reviewed History: Yes Social History Current Living Status: Alone Speech PLF-Current Status Prior Level of Function Pt reports he lives at home alone and his daughter lives close by. Pt reports using a pill box and manages his own medications. Pt writes checks for finances. Subjective Pt sitting up in recliner. Pt pleasant and cooperative throughout evaluation. Pain Numeric Pain Scale: 0-No Pain Language Eval: Auditory Comprehends Simple Yes/No Ques: Functional Follows 1-Step Commands: Functional Follows Complex Directions: Functional Follows General Conversations: Functional Language Eval: Verbal Language Completes Spontaneous Greeting: Functional Word Finding: Functional Objective Cognitive Domain Attention: WNL Memory: Mild Problem Solving: Functional Executive Functions: WNL Visuospatial Skills: WNL Composite Severity Rating: WNL Clock Drawing Severity Rating: WNL Score: 27 Objective Formal/Standardized Tests SLUMS Results 27/30 Impression Pt's cognitive skills appears WFL. Pt scored a 27/30 on the slums. Pt unable to recall 2/5 words following a short delay. Pt scores 2/3 points for generative naming. Pt names 14 animals in one minutes, 15 animals required for 3 points. Pt completes a check writing task with 100% accuracy independently. Pt also completes a medication management task using a pill box with 100% accuracy independently. Speech-Plan Patient/Family Goals Patient/Family Goals: Pt's goal is to return home at [facility]. Treatment Plan Speech Therapy Treatment Plan: Discontinue ST Frequency: 1 time per month Estimated Hrs Per Day: Other Rehab Potential: Good Pt/Family Agrees to Plan: Yes Safety Risks/Education Teaching Recipient: Patient Teaching Methods: Discussion Response to Teaching: Verbalize Understanding Education Topics Provided: Pt educated on role of INSULATION AND FLOORING ASSEMBLER, purpose of evaluation, results, and recommendations. Pt receptive and verbalized understanding. Time Speech Therapy Time In: 08:00 Speech Therapy Time Out: 08:30 DATE: Mar 09, 2023 Total Billed Time: 30 Billed Treatment Time S/L Masha Noyola Speech Therapy Mar 09, 2023 12:48
--- NOTE | 2023-03-09 15:34 | Therapy Group Daily Note ---
Therapy Daily Group Note Patient Education Topic Other List Below (Memory Technique & Strategies) Session Ratio (pt:therapist): 3:1 Goal of Session: Education on ARU Expectations, Memory Strategies Goal Met for this Session: Yes Pt Benefit of Group: Contributions to Others, F/U Use of Strategies @Home, Increased Functional Safety, Improved Cognition, Recognition of Peers, Soci alization Other/Notes Pt ambulates to PT/OT Group using FWW at [facility]. Group consisted of Introductions (Name, Where From & Dice Rolled Question), Socialization, and Memory Techniques & Strategies. Pt actively participated in Group by giving personal examples of what pt does to aid memory. Pt ambulates back to room to use BR before resting at end of tx with all needs met. Start Time: 13:00 Stop Time: 14:25 Total Billed Treatment Time: 85 Total Billed Treatment 1, GRP L[employer] ENGINEER Mar 09, 2023 15:34
[2023-03-09 17:15] VITALS: BP 129/62
[2023-03-09 20:10] VITALS: BP 111/62
[2023-03-10] MEDS: meTOprolol TARTRATE 50 MG (LOPRESSOR) TAB PO SCH ×3 (03:10→18:50)
[2023-03-10] MEDS: LACTOBACILLUS ACIDOPHILUS (PROBIOTIC) CAPSULE PO SCH ×4 (06:00→21:39)
[2023-03-10] MEDS ORDERED: ENOXAPARIN 40 MG/0.4 ML (LOVENOX) SYR SC SCH (07:15)
[2023-03-10 08:30] VITALS: BP 108/57
[2023-03-10] MEDS: PANTOPRAZOLE 40 MG (PROTONIX) TAB PO SCH (09:13)
[2023-03-10] MEDS: APIXABAN 5 MG (ELIQUIS) TABLET PO SCH ×2 (09:13→21:40)
[2023-03-10] MEDS: AMIODARONE 200 MG (CORDARONE) TAB PO SCH (09:14)
[2023-03-10] MEDS: SENNA W/DOCUSATE (SENOKOT S) TABLET PO SCH ×2 (09:14→21:39)
[2023-03-10] MEDS: polyethylene glycoL POWDER 17 GM (MIRALAX) PACK PO SCH ×2 (09:14→21:41)
[2023-03-10] MEDS: DOCUSATE SODIUM 100 MG (COLACE) CAP PO SCH ×2 (09:14→21:41)
--- NOTE | 2023-03-10 09:21 | PM&R Progress Note ---
Subjective HPI/CC On Admission Date Seen by Provider: Mar 10, 2023 Time Seen by Provider: 12:00 Subjective/Events-last exam 03/10/2023: Patient doing well Remains on oxygen Eating and drinking better Bowel regimen maintained No concerns 03/09/2023: Patient doing well Maintained on oxygen Incentive spirometer provided Supportive care we will continue Bowels are moving 03/08/2023: Patient doing a lot better Had a large bowel movement Oxygen maintained Supportive care we will continue Review of Systems General: Fatigue, Malaise Objective Exam Vital Signs Vital Signs Date Time Temp Pulse Resp B/P (MAP) Pulse Ox O2 Delivery O2 Flow Rate FiO2 03/10/23 18:49 76 103/57 (72) Nasal Cannula 2.00 03/10/23 08:30 36.1 18 95 Capillary Refill : General Appearance: No Apparent Distress, WD/WN, Chronically ill, Thin HEENT: PERRL/EOMI, Normal ENT Inspection, Pharynx Normal Neck: Full Range of Motion, Normal Inspection, Non Tender, Supple, Carotid Bruit Respiratory: Chest Non Tender, Lungs Clear, No Accessory Muscle Use, No Respiratory Distress, Decreased Breath Sounds Cardiovascular: Regular Rate, Rhythm, No Edema, No Gallop, No JVD, No Murmur, Normal Peripheral Pulses Gastrointestinal: Normal Bowel Sounds, No Organomegaly, No Pulsatile Mass, Non Tender, Soft Back: Normal Inspection, No CVA Tenderness, No Vertebral Tenderness Extremity: Normal Capillary Refill, Normal Inspection, Normal Range of Motion, Non Tender, No Calf Tenderness, No Pedal Edema Neurologic/Psychiatric: Alert, Oriented x3, No Motor/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, silo painter II- XII Norm as Tested, Abnormal Gait, Depressed Affect, Motor Weakness (Severe weakness of all extremities 3/5) Skin: Normal Color, Warm/Dry Lymphatic: No Adenopathy Results/Procedures Lab Patient resulted labs reviewed. FIM Transfers Therapy Code Descriptions/Definitions Functional [place] Measure: 0=Not Assessed/NA 4=Minimal Assistance 1=Total Assistance 5=Supervision or Setup 2=Maximal Assistance 6=Modified [place] 3=Moderate Assistance 7=Complete IndependenceSCALE: Activities may be completed with or without assistive devices. 7-Sodxyxjkgr-yxlhnla completes the activity by him/herself with no assistance from a helper. 5-Set-up or Clean-up Assistance-helper sets up or cleans up; patient completes activity. [place] assists only prior to or following the activity. 4-Supervision or Touching Assistance-helper provides verbal cues and/or touching/steadying and/or contact guard assistance as patient completes activity. Assistance may be provided throughout the activity or intermittently. 3-Partial/Moderate Assistance-helper does LESS THAN HALF the effort. [place] lifts, holds or supports trunk or limbs, but provides less than half the effort. 2-Substantial/Maximal Assistance-helper does MORE THAN HALF the effort. [place] lifts or holds trunk or limbs and provides more than half the effort. 3-Pakkoywhu-frzxwl does ALL the effort. Patient does none of the effort to complete the activity. Or, the assistance of 2 or more helpers is required for the patient to complete the activity. If activity was not attempted, code reason: 7-Patient Refused. 9-Not Applicable-not attempted and the patient did not perform the activity before the current illness, exacerbation or injury. 10-Not Attempted due to Environmental Limitations-(lack of equipment, weather restraints, etc.). 88-Not Attempted due to Medical Conditions or Safety Concerns. Roll Left to Right (QC): 5 (with bedrail) Sit to Lying (QC): 5 (with bed rail) Sit to Stand (QC): 3 (min (A) from w/c, v/c for hand placement) Chair/Iil-bz-Mvzpx Xfer(QC): 3 (Min (A) with FWW) Car Transfer (QC): 3 (min (A) with FWW and v.c. for hand placement) Gait Training Does the Patient Walk?: Yes Walk 10 feet (QC): 3 (Min (A) with FWW, slow steven, forward flexed at waist) Walk 50 ft with 2 Turns(QC): 3 (min (A) with FWW and O2 tank) Walk 150 ft (QC): 88 (enduranc deficit and (R) knee pain limit distance) Walking 10ft/uneven surface-QC: 3 (Min (A) with FWW) Gait Assistive Device: FWW Wheelchair Training Does the Pt Use a Wheelchair?: Yes Distance: 50 Wheel 50 ft with 2 turns (QC): 3 (Min (A) to coordinate UE's and LE's together - wants to hold feet off floor, endurance limits UE propulsion) Wheel 150 ft (QC): 88 (endurance deficit limits distance) Stair Training 1 Step (curb) (QC): 3 (min (A) with FWW with cues for sequence) 4 Steps (QC): 3 (min (A) with FWW with cues for sequence) 12 Steps (QC): 88 (NT due to endurance deficit) Balance Picking up an Object (QC): 5 (using warehouse lead. 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
[2023-03-10] MEDS ORDERED: TROS20TA3 PO (09:38)
[2023-03-10 11:03] VITALS: BP 106/52
--- NOTE | 2023-03-10 11:09 | Physical Therapy Daily Note ---
PT Daily Note-Current Subjective Patient has no new c/o this a.m. States it is easier to stand up today. Pain Section J - Health Conditions 1. Rarely or not at all 2. Occasionally 3. Frequently 4. Almost constantly 8. Unable to answer Pain Effect on Sleep: 1 Pain Interference with Therapy: 2 (Patient wearing (R) knee brace which provided support and lessened knee pain with activity. Only 1 self-corrected episode of mild buckling during entire treatment session. Patient able to don knee brace (I).) Pain Interference w/Day-to-Day: 2 Appearance Patient in bed having just finished his breakfast this a.m., wearing hospital gown. Agreeable to participate in therapy. Mental Status Patient Orientation: Person, Place, Situation Patient participated in scavenger lawrence activities while walking on unit with FWW with cues to scan environment and cues ~30% of time for clues to location of objects. Appropriate conversation/social interaction/reminiscing while on Nustep and while consuming a maple long chivo during a rest period. Did have 2 mild coughs after drinking water following his maple long chivo. Transfers SCALE: Activities may be completed with or without assistive devices. 7-Biyltcysyp-amdvdac completes the activity by him/herself with no assistance from a helper. 5-Set-up or Clean-up Assistance-helper sets up or cleans up; patient completes activity. [place] assists only prior to or following the activity. 4-Supervision or Touching Assistance-helper provides verbal cues and/or touching/steadying and/or contact guard assistance as patient completes activi ty. Assistance may be provided throughout the activity or intermittently. 3-Partial/Moderate Assistance-helper does LESS THAN HALF the effort. [place] lifts, holds or supports trunk or limbs, but provides less than half the effort. 2-Substantial/Maximal Assistance-helper does MORE THAN HALF the effort. [place] lifts or holds trunk or limbs and provides more than half the effort. 4-Odzcluyqt-egjzrz does ALL the effort. Patient does none of the effort to complete the activity. Or, the assistance of 2 or more helpers is required for the patient to complete the activity. If activity was not attempted, code reason: 7-Patient Refused. 9-Not Applicable-not attempted and the patient did not perform the activity before the current illness, exacerbation or injury. 10-Not Attempted due to Environmental Limitations-(lack of equipment, weather restraints, etc.). 88-Not Attempted due to Medical Conditions or Safety Concerns. Lying to Sitting/Side of Bed(Q: 5 (/p therapist flattened knee portion of mattress. Patient uses bed rail.) Sit to Stand (QC): 4 (CGA from bed, kauffman mat and Nustep.CGA-min x 1 from armless chair, otherwise CGA x 3 other attempts.) Chair/Faf-mo-Jgsrr Xfer(QC): 4 (CGA with FWW) Toilet Transfer (QC): 4 (Toileting x 2 to empty bladder in standing at toilet in bathroom. Patient used 1 walker handle as grab bar. No LOB's today. Toileting and clothing managed without assist.) Weight Bearing Right Lower Extremity: Right Full Weight Bearing Left Lower Extremity: Left Full Weight Bearing (R) knee is arthritic and frequently "catches" or "gives away" Gait Training Does the Patient Walk?: Yes Walk 10 feet (QC): 4 Walk 50 ft with 2 Turns(QC): 4 Pt amb 106' from room to gym with FWW CGA-SBA /c v.c. to scan environment during scavenger lawrence. Moderate fatigue following. Patient ambulated 116' in common area /c FWW CGA-SBA /c v.c. to scan environment during scavenger lawrence. Moderated fatigue following. Patient ambulated another 70' to room with FWW CGA-SBA at conclusion of treatment. Moderate fatigue following. All gait with O2 at 2L per nc. Exercises NuStep Minutes: 8 NuStep Workload: 2 ((B) UE's and LE's.O2 sats 90-93% during Nustep activity.) Treatments All activities performed with 2L O2 per nc and rolling portable tank. Patient able to don pants with min (A) to slip pants over (R) foot -- educated patient to place painful/(R) LE in first vs. 2nd as he performed this am. Max (A) to don socks and shoes. Patient then able to stand CGA with pull up sweatpants wi thout MEDICAL TECHNOLOGIST CHIEF on walker SBA-CGA. Patient able to don shirt in sitting with set- up(handing patient the shirt). Patient able to remove O2 prior to donning shirt, but did require min (A) to place cannula after UBD. Patient demonstrated fair-good sitting balance EOB during dressing activity. Standing balance/endurance activity at sink: patient stood at sink SBA for 6 minutes and performed rinsing/drying face (I), brushing teeth (I), and combing hair (I). Did use UE support on countertop as needed. Sat in bathroom to rest /p completion of ADL activities - mild SOB. PT Shelter Goals Shelter Goals PT Roll Winder Goals Time Frame: Mar 21, 2023 Roll Left & Right (QC): 6 Sit to Lying (QC): 6 Lying-Sitting on Side/Bed(QC): 6 Sit to Stand (QC): 6 Chair/Dyq-uc-Dzngt Xfer(QC): 6 (/c FWW) Toilet Transfer (QC): 6 Car Transfer (QC): 6 Does the Patient Walk: Yes Walk 10 feet (QC): 6 (/c FWW) Walk 50ft with 2 Turns (QC): 6 (/c FWW with gait speed of .26 m/sec or better ) Walk 150 ft (QC): 6 (/c FWW) Walking 10ft on Uneven Surface: 6 (/c FWW) 1 Step (curb) (QC): 6 (/c FWW) 4 Steps (QC): 6 (with hand rails) 12 Steps (QC): 6 (/c handrails) Picking up an Object (QC): 6 (with inside polisher) Does the Pt use WC or Scooter?: Yes Wheel 50 feet with 2 turns (QC: 6 Type: Manual Wheel 150 feet: 6 Type: Manual PT Plan Problem List Problem List: Activity Tolerance, Functional Strength, Safety, Balance, Gait, Transfer, Bed Mobility Treatment/Plan Treatment Plan: Continue Plan of Care Treatment Plan: Bed Mobility, Education, Functional Activity Beata, Functional Strength, Group Therapy, Gait, Safety, Therapeutic Exercise, Transfers Treatment Duration: Mar 21, 2023 Frequency: At least 5 of 7 days/Wk (IRF) Estimated Hrs Per Day: Other (1 - 1.5 hrs per day) Patient and/or Family Agrees t: Yes Safety Risks/Education Patient Education: Gait Training, Transfer Techniques Teaching Recipient: Patient Teaching Methods: Demonstration, Discussion Response to Teaching: Verbalize Understanding Discharge Recommendations Target Placement Home /c daughter's assist. Time Time In: 745 Time Out: 910 DATE: Mar 10, 2023 Total Billed Treatment Time: 85 Total Billed Treatment 2 GT, 1 Ex, 3 FA Nadia Willis PT Mar 10, 2023 11:09
--- NOTE | 2023-03-10 11:53 | Occupational Ther Daily Note ---
OT Current Status-Daily Note Subjective Pt sitting in chair in room, upon arrival, alert and cooperative, no pain mentioned ADL-Treatment Pt completed B UE exercises with 2lb wt, 10 reps 2 sets, including should flexion, shoulder abduction, and bicep curls. Pt did well with those exercises, fatigued quickly, but participated well. Pt also participated in a cognitive fine motor card game activity, requiring minimal assistance to group like items, by visually scanning, and reaching and placing cards in a pile. Pt also requested to use the rest room, pt ambulated with FWW, CGA to restroom, and completed toilet transfer with CGA. Pt was left in care of nursing aid to complete toilet hygiene, all needs met. Therapy Code Descriptions/Definitions Functional [place] Measure: 0=Not Assessed/NA 4=Minimal Assistance 1=Total Assistance 5=Supervision or Setup 2=Maximal Assistance 6=Modified [place] 3=Moderate Assistance 7=Complete IndependenceSCALE: Activities may be completed with or without assistive devices. 8-Atakzsioph-zbqfajc completes the activity by him/herself with no assistance from a helper. 5-Set-up or Clean-up Assistance-helper sets up or cleans up; patient completes activity. [place] assists only prior to or following the activity. 4-Supervision or Touching Assistance-helper provides verbal cues and/or touching/steadying and/or contact guard assistance as patient completes activity. Assistance may be provided throughout the activity or intermittently. 3-Partial/Moderate Assistance-helper does LESS THAN HALF the effort. [place] lifts, holds or supports trunk or limbs, but provides less than half the effort. 2-Substantial/Maximal Assistance-helper does MORE THAN HALF the effort. [place] lifts or holds trunk or limbs and provides more than half the effort. 8-Txwefljsp-avguuf does ALL the effort. Patient does none of the effort to complete the activity. Or, the assistance of 2 or more helpers is required for the patient to complete the activity. If activity was not attempted, code reason: 7-Patient Refused. 9-Not Applicable-not attempted and the patient did not perform the activity before the current illness, exacerbation or injury. 10-Not Attempted due to Environmental Limitations-(lack of equipment, weather restraints, etc.). 88-Not Attempted due to Medical Conditions or Safety Concerns. Education OT Patient Education: Correct positioning, Energy conservation, Exercise program, Progress toward Goal/Update tx plan, Purpose of tx/functional activities, Transfer techniques Teaching Recipient: Patient Teaching Methods: Discussion OT Short Term Goals Short Term Goals Time Frame: Mar 14, 2023 Eatin Oral hygiene: 6 Upper body dressin OT Halfway Goals Helpdesk Analyst Goals Time Frame: Apr 03, 2023 Acute change in mental status: 0 Inattention: 0 Disorganized thinkin Altered level of consciousness: 0 Eating (QC): 6 Oral Hygiene (QC): 6 Toileting Hygiene (QC): 6 Shower/Bathe Self (QC): 6 Upper Body Dressing (QC): 6 Lower Body Dressing (QC): 6 On/Off Footwear (QC): 6 1=Demonstrate adherence to instructed precautions during ADL tasks. 2=Patient will verbalize/demonstrate understanding of assistive devices/modifications for ADL. 3=Patient will improve strength/tolerance for activity to enable patient to perform ADL's. OT Education/Plan Problem List/Assessment Assessment: No Skilled OT Needs ID'd Discharge Recommendations Plan/Recommendations: Continue POC Treatment Plan/Plan of Care Patient would benefit from OT for education, treatment and training to promote independence in ADL's, mobility, safety and/or upper extremity function for ADL's. Plan of Care: ADL Retraining, Caregiver Training, Cognitive Retraining, Concurrent Therapy, Functional Mobility, Group Exercise/Act as Ind Treatment Duration: Mar 09, 2023 Frequency: Modified Program (IRF) Estimated Hrs Per Day: Other Agreement: Yes Rehab Potential: Good Time Start Time: 11:15 Stop Time: 11:50 DATE: Mar 10, 2023 Total Time Billed (hr/min): 35 Billed Treatment Time 1 visit EX 2 (35 min) Elsie Hooks COTA Mar 10, 2023 11:53
--- NOTE | 2023-03-10 13:35 | Therapy Group Daily Note ---
Therapy Daily Group Note Patient Education Topic Home Safety, Other List Below (nutrition) Exercises LE Seated Exercise, UE Exercise Session Ratio (pt:therapist): 4:1 Goal of Session: Home Safety Strategies, UE/LE Strengthing Goal Met for this Session: Yes Pt Benefit of Group: Contributions to Others, F/U Use of Strategies @Home, Increased Functional Safety, Increased Functional Strength, Improved Cognition, Recognition of Peers, Socialization Other/Notes Pt ambulated using W to [facility] for OT/PT group. Group consisted of pt's socializing while eating lunch together, education on exercise/nutrition and B UE LE seated exercises. Pt actively listened to therapists and peers during session then participated appropriately with activities and exercises. Pt able to verbalize understanding of educational topics by verbalizing personal strategies and opinions. Pt able to complete own meal set up and use regular utensils to eat appropriately with peers. Tolerated B UE/LE exercises well. After session, pt sitting in recliner with call light/phone in reach. All needs met in room. Start Time: 12:00 Stop Time: 13:10 Total Billed Treatment Time: 70 Total Billed Treatment 1-GRP EVERARDO HOLBROOK Mar 10, 2023 13:35
[2023-03-10 18:49] VITALS: BP 103/57
[2023-03-10 20:50] VITALS: BP 111/69
[2023-03-11 04:10] VITALS: BP 146/74
[2023-03-11] MEDS: meTOprolol TARTRATE 50 MG (LOPRESSOR) TAB PO SCH ×3 (04:14→18:49)
--- NOTE | 2023-03-11 06:07 | PM&R Progress Note ---
Subjective HPI/CC On Admission Date Seen by Provider: Mar 11, 2023 Time Seen by Provider: 12:00 Subjective/Events-last exam 03/11/2023: Patient doing well Urinary complaints reported We will check urine in and out cath Weaned down oxygen 03/10/2023: Patient doing well Remains on oxygen Eating and drinking better Bowel regimen maintained No concerns 03/09/2023: Patient doing well Maintained on oxygen Incentive spirometer provided Supportive care we will continue Bowels are moving 03/08/2023: Patient doing a lot better Had a large bowel movement Oxygen maintained Supportive care we will continue Review of Systems General: Fatigue, Malaise Pulmonary: Dyspnea, Cough Objective Exam Vital Signs Vital Signs Date Time Temp Pulse Resp B/P (MAP) Pulse Ox O2 Delivery O2 Flow Rate FiO2 03/11/23 18:48 78 103/67 (79) 96 Room Air 03/11/23 09:00 2.00 03/11/23 08:00 36.0 18 Capillary Refill : General Appearance: No Apparent Distress, WD/WN, Chronically ill, Thin HEENT: PERRL/EOMI, Normal ENT Inspection, Pharynx Normal Neck: Full Range of Motion, Normal Inspection, Non Tender, Supple, Carotid Bruit Respiratory: Chest Non Tender, Lungs Clear, No Accessory Muscle Use, No Respiratory Distress, Decreased Breath Sounds Cardiovascular: Regular Rate, Rhythm, No Edema, No Gallop, No JVD, No Murmur, Normal Peripheral Pulses Gastrointestinal: Normal Bowel Sounds, No Organomegaly, No Pulsatile Mass, Non Tender, Soft Back: Normal Inspection, No CVA Tenderness, No Vertebral Tenderness Extremity: Normal Capillary Refill, Normal Inspection, Normal Range of Motion, Non Tender, No Calf Tenderness, No Pedal Edema Neurologic/Psychiatric: Alert, Oriented x3, No Motor/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, music artist II- XII Norm as Tested, Abnormal Gait, Depressed Affect, Motor Weakness (Severe weakness of all extremities 3/5) Skin: Normal Color, Warm/Dry Lymphatic: No Adenopathy Results/Procedures Lab Patient resulted labs reviewed. FIM Transfers Therapy Code Descriptions/Definitions Functional [place] Measure: 0=Not Assessed/NA 4=Minimal Assistance 1=Total Assistance 5=Supervision or Setup 2=Maximal Assistance 6=Modified [place] 3=Moderate Assistance 7=Complete IndependenceSCALE: Activities may be completed with or without assistive devices. 5-Gbfbbjexqt-bmuifzf completes the activity by him/herself with no assistance from a helper. 5-Set-up or Clean-up Assistance-helper sets up or cleans up; patient completes activity. [place] assists only prior to or following the activity. 4-Supervision or Touching Assistance-helper provides verbal cues and/or touching/steadying and/or contact guard assistance as patient completes activity. Assistance may be provided throughout the activity or intermittently. 3-Partial/Moderate Assistance-helper does LESS THAN HALF the effort. [place] lifts, holds or supports trunk or limbs, but provides less than half the effort. 2-Substantial/Maximal Assistance-helper does MORE THAN HALF the effort. [place] lifts or holds trunk or limbs and provides more than half the effort. 8-Jgzvlfnfr-ybrtgw does ALL the effort. Patient does none of the effort to compl ete the activity. Or, the assistance of 2 or more helpers is required for the patient to complete the activity. If activity was not attempted, code reason: 7-Patient Refused. 9-Not Applicable-not attempted and the patient did not perform the activity before the current illness, exacerbation or injury. 10-Not Attempted due to Environmental Limitations-(lack of equipment, weather restraints, etc.). 88-Not Attempted due to Medical Conditions or Safety Concerns. Roll Left to Right (QC): 5 (with bedrail) Sit to Lying (QC): 5 (with bed rail) Sit to Stand (QC): 4 (CGA from bed, kauffman mat and Nustep.CGA-min x 1 from armless chair, otherwise CGA x 3 other attempts.) Chair/Mxh-gl-Yycwm Xfer(QC): 4 (CGA with FWW) Car Transfer (QC): 3 (min (A) with FWW and v.c. for hand placement) Gait Training Does the Patient Walk?: Yes Walk 10 feet (QC): 4 Walk 50 ft with 2 Turns(QC): 4 Walk 150 ft (QC): 88 (enduranc deficit and (R) knee pain limit distance) Walking 10ft/uneven surface-QC: 3 (Min (A) with FWW) Gait Assistive Device: FWW Wheelchair Training Does the Pt Use a Wheelchair?: Yes Distance: 50 Wheel 50 ft with 2 turns (QC): 3 (Min (A) to coordinate UE's and LE's together - wants to hold feet off floor, endurance limits UE propulsion) Wheel 150 ft (QC): 88 (endurance deficit limits distance) Stair Training 1 Step (curb) (QC): 3 (min (A) with FWW with cues for sequence) 4 Steps (QC): 3 (min (A) with FWW with cues for sequence) 12 Steps (QC): 88 (NT due to endurance deficit) Balance Picking up an Object (QC): 5 (using armature bander. 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
[2023-03-11] MEDS: LACTOBACILLUS ACIDOPHILUS (PROBIOTIC) CAPSULE PO SCH ×4 (06:36→20:08)
[2023-03-11 08:00] VITALS: BP 121/63
[2023-03-11] MEDS: PANTOPRAZOLE 40 MG (PROTONIX) TAB PO SCH (08:03)
[2023-03-11] MEDS: APIXABAN 5 MG (ELIQUIS) TABLET PO SCH ×2 (08:03→20:02)
[2023-03-11] MEDS: AMIODARONE 200 MG (CORDARONE) TAB PO SCH (08:03)
[2023-03-11] MEDS: DOCUSATE SODIUM 100 MG (COLACE) CAP PO SCH ×2 (08:03→20:08)
[2023-03-11] MEDS: SENNA W/DOCUSATE (SENOKOT S) TABLET PO SCH ×2 (08:03→20:08)
[2023-03-11] MEDS: polyethylene glycoL POWDER 17 GM (MIRALAX) PACK PO SCH ×2 (08:08→20:08)
--- NOTE | 2023-03-11 09:26 | Physical Therapy Progress Note ---
Therapy Progress Note Patient demonstrates a mobility limitation and endurance deficit that significant impairs his safety with functional mobility & ADL activities and poses a fall risk in the home. The patient is safely able to use a FWW to improve his gait balance and to assist with energy conservation during gait. Therefore a FWW is recommended for this patient to use at D/C. The patient's deficits are such that a cane is not sufficient to meet the patient's needs. Nadia Willis PT Mar 11, 2023 09:26
[2023-03-11 11:38] VITALS: BP 115/61
--- NOTE | 2023-03-11 11:51 | Occupational Ther Daily Note ---
OT Current Status-Daily Note Subjective Pt alert, sitting in recliner. Pt agrees to therapy. No c/o pain at this time. Mental Status/Objective Patient Orientation: Person, Place, Time, Situation Attachments: Oxygen ADL-Treatment Nrsg monitored pt's O2 levels, 92% after dressing and shower. Pt agrees to shower. SBA for safety due to history of R knee buckling, pt completes all shower by self. Set up for UBD. Supervision for LBD. Assist to don/doff JAMES hose. Pt utilized sock aide after education to don socks, doffs regular socks by self. Standing at sink, pt completed oral are independently. Pt stood at toilet to void without LOB or kneed buckling, supervision for toileting. Pt independent with oral care. After session, pt sitting in recliner with call light/phone in reach. All needs met in room. Therapy Code Descriptions/Definitions Functional [place] Measure: 0=Not Assessed/NA 4=Minimal Assistance 1=Total Assistance 5=Supervision or Setup 2=Maximal Assistance 6=Modified [place] 3=Moderate Assistance 7=Complete IndependenceSCALE: Activities may be completed with or without assistive devices. 9-Shfabooqfd-vgetuod completes the activity by him/herself with no assistance from a helper. 5-Set-up or Clean-up Assistance-helper sets up or cleans up; patient completes activity. [place] assists only prior to or following the activity. 4-Supervision or Touching Assistance-helper provides verbal cues and/or touchi ng/steadying and/or contact guard assistance as patient completes activity. Assistance may be provided throughout the activity or intermittently. 3-Partial/Moderate Assistance-helper does LESS THAN HALF the effort. [place] lifts, holds or supports trunk or limbs, but provides less than half the effort. 2-Substantial/Maximal Assistance-helper does MORE THAN HALF the effort. [place] lifts or holds trunk or limbs and provides more than half the effort. 4-Kfweifhkr-xtpddk does ALL the effort. Patient does none of the effort to complete the activity. Or, the assistance of 2 or more helpers is required for the patient to complete the activity. If activity was not attempted, code reason: 7-Patient Refused. 9-Not Applicable-not attempted and the patient did not perform the activity before the current illness, exacerbation or injury. 10-Not Attempted due to Environmental Limitations-(lack of equipment, weather restraints, etc.). 88-Not Attempted due to Medical Conditions or Safety Concerns. Eating (QC): 6 Oral Hygiene (QC): 6 Shower/Bathe Self (QC): 4 Upper Body Dressing (QC): 5 Lower Body Dressing (QC): 4 On/Off Footwear: 3 Toileting Hygiene (QC): 4 Toilet Transfer (QC): 4 OT Short Term Goals Short Term Goals Time Frame: Mar 14, 2023 Eatin Oral hygiene: 6 Upper body dressin OT Group Home Goals Vp Software Support Goals Time Frame: Apr 03, 2023 Acute change in mental status: 0 Inattention: 0 Disorganized thinkin Altered level of consciousness: 0 Eating (QC): 6 Oral Hygiene (QC): 6 Toileting Hygiene (QC): 6 Shower/Bathe Self (QC): 6 Upper Body Dressing (QC): 6 Lower Body Dressing (QC): 6 On/Off Footwear (QC): 6 1=Demonstrate adherence to instructed precautions during ADL tasks. 2=Patient will verbalize/demonstrate understanding of assistive devices/modifications for ADL. 3=Patient will improve strength/tolerance for activity to enable patient to perform ADL's. OT Education/Plan Problem List/Assessment Assessment: Decreased UE Strength, Impaired Funct Balance, Impaired Self-Care Skills Discharge Recommendations Plan/Recommendations: Continue POC Treatment Plan/Plan of Care Patient would benefit from OT for education, treatment and training to promote independence in ADL's, mobility, safety and/or upper extremity function for A DL's. Plan of Care: ADL Retraining, Caregiver Training, Cognitive Retraining, Concurrent Therapy, Functional Mobility, Group Exercise/Act as Ind Treatment Duration: Mar 09, 2023 Frequency: Modified Program (IRF) Estimated Hrs Per Day: Other Agreement: Yes Rehab Potential: Good Time Start Time: 11:00 Stop Time: 12:00 DATE: Mar 11, 2023 Total Time Billed (hr/min): 60 Billed Treatment Time 1 visit-ADL 4 (60 min) EVERARDO HOLBROOK Mar 11, 2023 11:51
--- NOTE | 2023-03-11 12:13 | Physical Therapy Daily Note ---
PT Daily Note-Current Subjective Pt sitting in recliner upon arrival. Pt reports needing to use BR at start of tx. Pain Numeric Pain Scale: 3 Location: Right Location Body Site: Knee Pain Description: Ache Section J - Health Conditions 1. Rarely or not at all 2. Occasionally 3. Frequently 4. Almost constantly 8. Unable to answer Pain Effect on Sleep: 1 Pain Interference with Therapy: 2 (Patient wearing (R) knee brace which provided support and lessened knee pain with activity. Only 1 self-corrected episode of mild buckling during entire treatment session. Patient able to don knee brace (I).) Pain Interference w/Day-to-Day: 2 Mental Status Patient Orientation: Person, Place Attachments: Oxygen (2L), Other-See Comments (R knee brace) Transfers SCALE: Activities may be completed with or without assistive devices. 2-Gcdgmrvlbw-iwbpzoj completes the activity by him/herself with no assistance from a helper. 5-Set-up or Clean-up Assistance-helper sets up or cleans up; patient completes activity. [place] assists only prior to or following the activity. 4-Supervision or Touching Assistance-helper provides verbal cues and/or touching/steadying and/or contact guard assistance as patient completes activity. Assistance may be provided throughout the activity or intermittently. 3-Partial/Moderate Assistance-helper does LESS THAN HALF the effort. [place] lifts, holds or supports trunk or limbs, but provides less than half the effort. 2-Substantial/Maximal Assistance-helper does MORE THAN HALF the effort. [place] lifts or holds trunk or limbs and provides more than half the effort. 0-Mqruooroj-onvivy does ALL the effort. Patient does none of the effort to complete the activity. Or, the assistance of 2 or more helpers is required for the patient to complete the activity. If activity was not attempted, code reason: 7-Patient Refused. 9-Not Applicable-not attempted and the patient did not perform the activity before the current illness, exacerbation or injury. 10-Not Attempted due to Environmental Limitations-(lack of equipment, weather restraints, etc.). 88-Not Attempted due to Medical Conditions or Safety Concerns. Sit to Stand (QC): 4 Toilet Transfer (QC): 4 Weight Bearing Right Lower Extremity: Right Full Weight Bearing Left Lower Extremity: Left Full Weight Bearing (R) knee is arthritic and frequently "catches" or "gives away" Gait Training Does the Patient Walk?: Yes Distance: 150' Walk 10 feet (QC): 4 Walk 50 ft with 2 Turns(QC): 4 Walk 150 ft (QC): 4 Gait Assistive Device: FWW CGA in case of knee buckling Exercises Seated Therapy Exercises: Ankle pumps, Long arc quads, Hip flexion, Hamstring Curls, Hip abd/add (Resistance w/red ball), Glut set Seated Reps: 15 Treatments TF to standing and amb to BR. After toileting, Pt amb in hallway to Therapy Gym. Pt completes Seated EX w/RB as needed. Pt amb in hallway & returns to room to use BR then rest in recliner at end of tx. All needs met, call light in hand. Assessment Current Status: Good Progress O2 is monitored during tx and remains 94% and above on 2L. Pt's R knee percy at times and is also monitored for safety. PT Custodial Goals Custodial Goals PT Custodial Goals Time Frame: Mar 21, 2023 Roll Left & Right (QC): 6 Sit to Lying (QC): 6 Lying-Sitting on Side/Bed(QC): 6 Sit to Stand (QC): 6 Chair/Vtg-uc-Zwgay Xfer(QC): 6 (/c FWW) Toilet Transfer (QC): 6 Car Transfer (QC): 6 Does the Patient Walk: Yes Walk 10 feet (QC): 6 (/c FWW) Walk 50ft with 2 Turns (QC): 6 (/c FWW with gait speed of .26 m/sec or better ) Walk 150 ft (QC): 6 (/c FWW) Walking 10ft on Uneven Surface: 6 (/c FWW) 1 Step (curb) (QC): 6 (/c FWW) 4 Steps (QC): 6 (with hand rails) 12 Steps (QC): 6 (/c handrails) Picking up an Object (QC): 6 (with panelboard tank pumper) Does the Pt use WC or Scooter?: Yes Wheel 50 feet with 2 turns (QC: 6 Type: Manual Wheel 150 feet: 6 Type: Manual PT Plan Problem List Problem List: Activity Tolerance, Functional Strength, Gait Treatment/Plan Treatment Plan: Continue Plan of Care Treatment Plan: Bed Mobility, Education, Functional Activity Beata, Functional Strength, Group Therapy, Gait, Safety, Therapeutic Exercise, Transfers Treatment Duration: Mar 21, 2023 Frequency: At least 5 of 7 days/Wk (IRF) Estimated Hrs Per Day: Other (1 - 1.5 hrs per day) Patient and/or Family Agrees t: Yes Safety Risks/Education Patient Education: Gait Training, Transfer Techniques, Correct Positioning, Safety Issues Teaching Recipient: Patient Teaching Methods: Discussion Response to Teaching: Verbalize Understanding Time Time In: 930 Time Out: 1030 DATE: Mar 11, 2023 Total Billed Treatment Time: 60 Total Billed Treatment 1, GT x2 (25m), EX (20m) & FA (15m) LOU PHILLIPS RESEARCH PROJECT COORDINATOR Mar 11, 2023 12:13
[2023-03-11] MEDS ORDERED: PHENAZOPYRIDINE 100 MG (PYRIDIUM) TABLET PO NR (12:45)
[2023-03-11] MEDS: PHENAZOPYRIDINE 100 MG (PYRIDIUM) TABLET PO SCH ×2 (13:06→18:49)
--- NOTE | 2023-03-11 13:52 | Physical Therapy Daily Note ---
PT Daily Note-Current Subjective Pt sitting in recliner upon arrival. Pt agrees to PT. O2 is monitored during tx as O2 is not worn during tx. Pain Section J - Health Conditions 1. Rarely or not at all 2. Occasionally 3. Frequently 4. Almost constantly 8. Unable to answer Pain Effect on Sleep: 1 Pain Interference with Therapy: 2 (Patient wearing (R) knee brace which provided support and lessened knee pain with activity. Only 1 self-corrected episode of mild buckling during entire treatment session. Patient able to don knee brace (I).) Pain Interference w/Day-to-Day: 2 Mental Status Attachments: Other-See Comments (R knee brace) Transfers SCALE: Activities may be completed with or without assistive devices. 0-Gjxlcczzxv-uaeikvu completes the activity by him/herself with no assistance from a helper. 5-Set-up or Clean-up Assistance-helper sets up or cleans up; patient completes activity. [place] assists only prior to or following the activity. 4-Supervision or Touching Assistance-helper provides verbal cues and/or touching/steadying and/or contact guard assistance as patient completes activity. Assistance may be provided throughout the activity or intermittently. 3-Partial/Moderate Assistance-helper does LESS THAN HALF the effort. [place] lifts, holds or supports trunk or limbs, but provides less than half the effort. 2-Substantial/Maximal Assistance-helper does MORE THAN HALF the effort. [place] lifts or holds trunk or limbs and provides more than half the effort. 0-Bnyhzyncy-ubfmng does ALL the effort. Patient does none of the effort to complete the activity. Or, the assistance of 2 or more helpers is required for the patient to complete the activity. If activity was not attempted, code reason: 7-Patient Refused. 9-Not Applicable-not attempted and the patient did not perform the activity before the current illness, exacerbation or injury. 10-Not Attempted due to Environmental Limitations-(lack of equipment, weather restraints, etc.). 88-Not Attempted due to Medical Conditions or Safety Concerns. Sit to Lying (QC): 5 Sit to Stand (QC): 4 Toilet Transfer (QC): 4 Weight Bearing Right Lower Extremity: Right Full Weight Bearing Left Lower Extremity: Left Full Weight Bearing (R) knee is arthritic and frequently "catches" or "gives away" Gait Training Does the Patient Walk?: Yes Distance: 200' Walk 10 feet (QC): 4 Walk 50 ft with 2 Turns(QC): 4 Walk 150 ft (QC): 4 Gait Persons Needed: 1 Gait Assistive Device: FWW Treatments TF to standing and amb in hallway. Pt returns to room to use BR then rest Supine in bed w/all needs met, call light in hand. Assessment Current Status: Good Progress O2 is monitored & remains at 94%, HR is 87 after amb. on no O2. PT Gas Meter Mechanic Goals Nursing Home Goals PT Nursing Home Goals Time Frame: Mar 21, 2023 Roll Left & Right (QC): 6 Sit to Lying (QC): 6 Lying-Sitting on Side/Bed(QC): 6 Sit to Stand (QC): 6 Chair/Hru-gh-Ibcsk Xfer(QC): 6 (/c FWW) Toilet Transfer (QC): 6 Car Transfer (QC): 6 Does the Patient Walk: Yes Walk 10 feet (QC): 6 (/c FWW) Walk 50ft with 2 Turns (QC): 6 (/c FWW with gait speed of .26 m/sec or better ) Walk 150 ft (QC): 6 (/c FWW) Walking 10ft on Uneven Surface: 6 (/c FWW) 1 Step (curb) (QC): 6 (/c FWW) 4 Steps (QC): 6 (with hand rails) 12 Steps (QC): 6 (/c handrails) Picking up an Object (QC): 6 (with line locator) Does the Pt use WC or Scooter?: Yes Wheel 50 feet with 2 turns (QC: 6 Type: Manual Wheel 150 feet: 6 Type: Manual PT Plan Problem List Problem List: Activity Tolerance Treatment/Plan Treatment Plan: Continue Plan of Care Treatment Plan: Bed Mobility, Education, Functional Activity Beata, Functional Strength, Group Therapy, Gait, Safety, Therapeutic Exercise, Transfers Treatment Duration: Mar 21, 2023 Frequency: At least 5 of 7 days/Wk (IRF) Estimated Hrs Per Day: Other (1 - 1.5 hrs per day) Patient and/or Family Agrees t: Yes Safety Risks/Education Patient Education: Gait Training, Safety Issues Teaching Recipient: Patient Teaching Methods: Discussion Response to Teaching: Verbalize Understanding Time Time In: 1300 Time Out: 1330 DATE: Mar 11, 2023 Total Billed Treatment Time: 30 Total Billed Treatment 1, GT (15m) & FA (15m) LOU PHILLIPS ASSISTANT REFINERY OPERATOR Mar 11, 2023 13:52
[2023-03-11 13:56] LABS: BILIRUBIN,URINE NEGATIVE (NEGATIVE); CLARITY,URINE CLEAR; COLOR,URINE YELLOW; GLUCOSE, URINE (UA) NEGATIVE (NEGATIVE); KETONES,URINE NEGATIVE (NEGATIVE); LEUKOCYTE ESTERASE ,URINE 1+ (NEGATIVE); NITRITE,URINE POSITIVE (NEGATIVE); PH,URINE 6.5 (5-9); PROTEIN,URINE NEGATIVE (NEGATIVE)
[2023-03-11 14:06] LABS: BACTERIA,URINE FEW /HPF; RBC,URINE RARE /HPF
--- NOTE | 2023-03-11 14:21 | Occupational Ther Daily Note ---
OT Current Status-Daily Note Subjective Pt alert, lying in bed. Pt agrees to therapy. Request to complete exercises in bed. Mental Status/Objective Patient Orientation: Person, Place, Time, Situation ADL-Treatment Therapy Code Descriptions/Definitions Functional [place] Measure: 0=Not Assessed/NA 4=Minimal Assistance 1=Total Assistance 5=Supervision or Setup 2=Maximal Assistance 6=Modified [place] 3=Moderate Assistance 7=Complete IndependenceSCALE: Activities may be completed with or without assistive devices. 7-Lywzgdglnc-hxpxvcm completes the activity by him/herself with no assistance from a helper. 5-Set-up or Clean-up Assistance-helper sets up or cleans up; patient completes activity. [place] assists only prior to or following the activity. 4-Supervision or Touching Assistance-helper provides verbal cues and/or t ouching/steadying and/or contact guard assistance as patient completes activity. Assistance may be provided throughout the activity or intermittently. 3-Partial/Moderate Assistance-helper does LESS THAN HALF the effort. [place] lifts, holds or supports trunk or limbs, but provides less than half the effort. 2-Substantial/Maximal Assistance-helper does MORE THAN HALF the effort. [place] lifts or holds trunk or limbs and provides more than half the effort. 0-Fshpxlabm-idruzc does ALL the effort. Patient does none of the effort to complete the activity. Or, the assistance of 2 or more helpers is required for the patient to complete the activity. If activity was not attempted, code reason: 7-Patient Refused. 9-Not Applicable-not attempted and the patient did not perform the activity before the current illness, exacerbation or injury. 10-Not Attempted due to Environmental Limitations-(lack of equipment, weather restraints, etc.). 88-Not Attempted due to Medical Conditions or Safety Concerns. Other Treatment Skilled instruction for B UE theraband exercises for correct technique and modifications when necessary. Pt given theraband HEP for use in room and home. Pt completed 3 sets 5 reps of 5 exercises with medium(green) theraband. Pt will need continued instruction for technique and remembering individual exercises. After session, pt lying in bed with call light/phone in reach. All needs met in room. OT Short Term Goals Short Term Goals Time Frame: Mar 14, 2023 Eatin Oral hygiene: 6 Upper body dressin OT Manager Labor Delivery Goals Shelter Goals Time Frame: Apr 03, 2023 Acute change in mental status: 0 Inattention: 0 Disorganized thinkin Altered level of consciousness: 0 Eating (QC): 6 Oral Hygiene (QC): 6 Toileting Hygiene (QC): 6 Shower/Bathe Self (QC): 6 Upper Body Dressing (QC): 6 Lower Body Dressing (QC): 6 On/Off Footwear (QC): 6 1=Demonstrate adherence to instructed precautions during ADL tasks. 2=Patient will verbalize/demonstrate understanding of assistive devices/modifications for ADL. 3=Patient will improve strength/tolerance for activity to enable patient to perform ADL's. OT Education/Plan Problem List/Assessment Assessment: Decreased Activ Tolerance, Decreased UE Strength Discharge Recommendations Plan/Recommendations: Continue POC Treatment Plan/Plan of Care Patient would benefit from OT for education, treatment and training to promote independence in ADL's, mobility, safety and/or upper extremity function for ADL's. Plan of Care: ADL Retraining, Caregiver Training, Cognitive Retraining, Concurrent Therapy, Functional Mobility, Group Exercise/Act as Ind Treatment Duration: Mar 09, 2023 Frequency: Modified Program (IRF) Estimated Hrs Per Day: Other Agreement: Yes Rehab Potential: Good Time Start Time: 13:45 Stop Time: 14:15 DATE: Mar 11, 2023 Total Time Billed (hr/min): 30 Billed Treatment Time 1 visit-EX 2 (30 min) EVERARDO HOLBROOK Mar 11, 2023 14:21
[2023-03-11 18:48] VITALS: BP 103/67
[2023-03-11 21:02] VITALS: BP 112/69
[2023-03-12] MEDS: LACTOBACILLUS ACIDOPHILUS (PROBIOTIC) CAPSULE PO SCH ×4 (03:10→20:30)
[2023-03-12] MEDS: meTOprolol TARTRATE 50 MG (LOPRESSOR) TAB PO SCH ×3 (03:27→18:57)
--- NOTE | 2023-03-12 05:46 | PM&R Progress Note ---
Subjective HPI/CC On Admission Date Seen by Provider: Mar 12, 2023 Time Seen by Provider: 12:00 Subjective/Events-last exam 03/12/2023: Patient doing a little better Pseudomonas noted on urinalysis and urine culture Cefepime started Patient doing well otherwise Chest x-ray checking due to crackles 03/11/2023: Patient doing well Urinary complaints reported We will check urine in and out cath Weaned down oxygen 03/10/2023: Patient doing well Remains on oxygen Eating and drinking better Bowel regimen maintained No concerns 03/09/2023: Patient doing well Maintained on oxygen Incentive spirometer provided Supportive care we will continue Bowels are moving 03/08/2023: Patient doing a lot better Had a large bowel movement Oxygen maintained Supportive care we will continue Review of Systems General: Fatigue, Malaise Objective Exam Vital Signs Vital Signs Date Time Temp Pulse Resp B/P (MAP) Pulse Ox O2 Delivery O2 Flow Rate FiO2 03/12/23 20:33 36.1 77 16 114/69 (84) 95 Room Air 03/11/23 09:00 2.00 Capillary Refill : General Appearance: No Apparent Distress, WD/WN, Chronically ill, Thin HEENT: PERRL/EOMI, Normal ENT Inspection, Pharynx Normal Neck: Full Range of Motion, Normal Inspection, Non Tender, Supple, Carotid Bruit Respiratory: Chest Non Tender, Lungs Clear, No Accessory Muscle Use, No Respiratory Distress, Crackles, Decreased Breath Sounds Cardiovascular: Regular Rate, Rhythm, No Edema, No Gallop, No JVD, No Murmur, Normal Peripheral Pulses Gastrointestinal: Normal Bowel Sounds, No Organomegaly, No Pulsatile Mass, Non Tender, Soft Back: Normal Inspection, No CVA Tenderness, No Vertebral Tenderness Extremity: Normal Capillary Refill, Normal Inspection, Normal Range of Motion, Non Tender, No Calf Tenderness, No Pedal Edema Neurologic/Psychiatric: Alert, Oriented x3, No Motor/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, manager sas II- XII Norm as Tested, Abnormal Gait, Depressed Affect, Motor Weakness (Severe weakness of all extremities 3/5) Skin: Normal Color, Warm/Dry Lymphatic: No Adenopathy Results/Procedures Lab Patient resulted labs reviewed. FIM Transfers Therapy Code Descriptions/Definitions Functional [place] Measure: 0=Not Assessed/NA 4=Minimal Assistance 1=Total Assistance 5=Supervision or Setup 2=Maximal Assistance 6=Modified [place] 3=Moderate Assistance 7=Complete IndependenceSCALE: Activities may be completed with or without assistive devices. 8-Caejjnkqum-abfivdh completes the activity by him/herself with no assistance from a helper. 5-Set-up or Clean-up Assistance-helper sets up or cleans up; patient completes activity. [place] assists only prior to or following the activity. 4-Supervision or Touching Assistance-helper provides verbal cues and/or touching/steadying and/or contact guard assistance as patient completes activity. Assistance may be provided throughout the activity or intermittently. 3-Partial/Moderate Assistance-helper does LESS THAN HALF the effort. [place] lifts, holds or supports trunk or limbs, but provides less than half the effort. 2-Substantial/Maximal Assistance-helper does MORE THAN HALF the effort. [place] lifts or holds trunk or limbs and provides more than half the effort. 0-Glhyypish-wgblkm does ALL the effort. Patient does none of the effort to complete the activity. Or, the assistance of 2 or more helpers is required for the patient to complete the activity. If activity was not attempted, code reason: 7-Patient Refused. 9-Not Applicable-not attempted and the patient did not perform the activity before the current illness, exacerbation or injury. 10-Not Attempted due to Environmental Limitations-(lack of equipment, weather restraints, etc.). 88-Not Attempted due to Medical Conditions or Safety Concerns. Roll Left to Right (QC): 5 (with bedrail) Sit to Lying (QC): 5 Sit to Stand (QC): 4 Chair/Bch-eu-Yzvwp Xfer(QC): 4 (CGA with FWW) Car Transfer (QC): 3 (min (A) with FWW and v.c. for hand placement) Gait Training Does the Patient Walk?: Yes Distance: 200' Walk 10 feet (QC): 4 Walk 50 ft with 2 Turns(QC): 4 Walk 150 ft (QC): 4 Walking 10ft/uneven surface-QC: 3 (Min (A) with FWW) Gait Persons Needed: 1 Gait Assistive Device: FWW Wheelchair Training Does the Pt Use a Wheelchair?: Yes Distance: 50 Wheel 50 ft with 2 turns (QC): 3 (Min (A) to coordinate UE's and LE's together - wants to hold feet off floor, endurance limits UE propulsion) Wheel 150 ft (QC): 88 (endurance deficit limits distance) Stair Training 1 Step (curb) (QC): 3 (min (A) with FWW with cues for sequence) 4 Steps (QC): 3 (min (A) with FWW with cues for sequence) 12 Steps (QC): 88 (NT due to endurance deficit) Balance Picking up an Object (QC): 5 (using nurse special. 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
[2023-03-12 08:00] VITALS: BP 110/66
[2023-03-12] MEDS: PANTOPRAZOLE 40 MG (PROTONIX) TAB PO SCH (08:06)
[2023-03-12] MEDS: PHENAZOPYRIDINE 100 MG (PYRIDIUM) TABLET PO SCH ×3 (08:06→18:56)
[2023-03-12] MEDS: APIXABAN 5 MG (ELIQUIS) TABLET PO SCH ×2 (08:06→20:30)
[2023-03-12] MEDS: polyethylene glycoL POWDER 17 GM (MIRALAX) PACK PO SCH ×3 (08:06→20:33)
[2023-03-12] MEDS: AMIODARONE 200 MG (CORDARONE) TAB PO SCH (08:06)
[2023-03-12] MEDS: DOCUSATE SODIUM 100 MG (COLACE) CAP PO SCH ×3 (08:06→20:30)
[2023-03-12] MEDS: SENNA W/DOCUSATE (SENOKOT S) TABLET PO SCH ×3 (08:07→20:30)
--- NOTE | 2023-03-12 09:45 | Physical Therapy Daily Note ---
PT Daily Note-Current Subjective Pt sitting in recliner w/daughters present for Family Training w/PT & OT. Pt agrees to PT/OT co-treat. Pain Location: No Pain Reported Section J - Health Conditions 1. Rarely or not at all 2. Occasionally 3. Frequently 4. Almost constantly 8. Unable to answer Pain Effect on Sleep: 1 Pain Interference with Therapy: 2 Pain Interference w/Day-to-Day: 2 Mental Status Patient Orientation: Person, Place, Time, Situation Attachments: Other-See Comments (R knee brace) Transfers SCALE: Activities may be completed with or without assistive devices. 1-Jpsdjxrdbl-scsbfhg completes the activity by him/herself with no assistance fr om a helper. 5-Set-up or Clean-up Assistance-helper sets up or cleans up; patient completes activity. [place] assists only prior to or following the activity. 4-Supervision or Touching Assistance-helper provides verbal cues and/or touching/steadying and/or contact guard assistance as patient completes activity. Assistance may be provided throughout the activity or intermittently. 3-Partial/Moderate Assistance-helper does LESS THAN HALF the effort. [place] lifts, holds or supports trunk or limbs, but provides less than half the effort. 2-Substantial/Maximal Assistance-helper does MORE THAN HALF the effort. [place] lifts or holds trunk or limbs and provides more than half the effort. 3-Rvemtzout-rtqapq does ALL the effort. Patient does none of the effort to complete the activity. Or, the assistance of 2 or more helpers is required for the patient to complete the activity. If activity was not attempted, code reason: 7-Patient Refused. 9-Not Applicable-not attempted and the patient did not perform the activity before the current illness, exacerbation or injury. 10-Not Attempted due to Environmental Limitations-(lack of equipment, weather restraints, etc.). 88-Not Attempted due to Medical Conditions or Safety Concerns. Sit to Stand (QC): 5 Toilet Transfer (QC): 5 Weight Bearing Right Lower Extremity: Right Full Weight Bearing Left Lower Extremity: Left Full Weight Bearing (R) knee is arthritic and frequently "catches" or "gives away" Gait Training Does the Patient Walk?: Yes Distance: 180', 100' x2 Walk 10 feet (QC): 5 Walk 50 ft with 2 Turns(QC): 5 Walk 150 ft (QC): 5 Gait Assistive Device: FWW Close SBA for knee buckling Treatments PT & OT answer questions from pt & family over Family Training items including use of Lift Chair, Shower Chair vs Tub Transfer Bench, Proper Transfer into Shower, Adaptive Equipment, & Grab Bars. Pt TF to standing and amb to Big Shower room for Tub Transfer Bench practice then Car Transfer practice before returning to room to use BR then rest in room at end of tx. All needs met, call light in hand. Assessment Current Status: Good Progress Family & pt had excellent questions and felt well prepared for anticipated d/c in a couple of days. Pt has improved w/decreased fatigue & R knee buckling. PT Detention Goals Detention Goals PT Health Education Aide Goals Time Frame: Mar 21, 2023 Roll Left & Right (QC): 6 Sit to Lying (QC): 6 Lying-Sitting on Side/Bed(QC): 6 Sit to Stand (QC): 6 Chair/Ogc-pe-Anjjn Xfer(QC): 6 (/c FWW) Toilet Transfer (QC): 6 Car Transfer (QC): 6 Does the Patient Walk: Yes Walk 10 feet (QC): 6 (/c FWW) Walk 50ft with 2 Turns (QC): 6 (/c FWW with gait speed of .26 m/sec or better ) Walk 150 ft (QC): 6 (/c FWW) Walking 10ft on Uneven Surface: 6 (/c FWW) 1 Step (curb) (QC): 6 (/c FWW) 4 Steps (QC): 6 (with hand rails) 12 Steps (QC): 6 (/c handrails) Picking up an Object (QC): 6 (with energy audit advisor) Does the Pt use WC or Scooter?: Yes Wheel 50 feet with 2 turns (QC: 6 Type: Manual Wheel 150 feet: 6 Type: Manual PT Plan Problem List Problem List: Activity Tolerance Treatment/Plan Treatment Plan: Continue Plan of Care Treatment Plan: Bed Mobility, Education, Functional Activity Beata, Functional Strength, Group Therapy, Gait, Safety, Therapeutic Exercise, Transfers Treatment Duration: Mar 21, 2023 Frequency: At least 5 of 7 days/Wk (IRF) Estimated Hrs Per Day: Other (1 - 1.5 hrs per day) Patient and/or Family Agrees t: Yes Safety Risks/Education Patient Education: Transfer Techniques, Correct Positioning, Safety Issues Teaching Recipient: Patient, Family Teaching Methods: Demonstration, Discussion Response to Teaching: Verbalize Understanding, Return Demonstration Time Time In: 800 Time Out: 900 DATE: Mar 12, 2023 Total Billed Treatment Time: 60 Total Billed Treatment 1, FA x3 (45m) & GT (15m) LOU PHILLIPS CHEMIST HELPER Mar 12, 2023 09:45
[2023-03-12 11:16] VITALS: BP 105/58
[2023-03-12] MEDS: CEFEPIME INJECTION 1,000 MG in NS (IVPB) 50 ML IV SCH ×2 (14:41→20:29)
--- NOTE | 2023-03-12 14:56 | Occupational Ther Daily Note ---
OT Current Status-Daily Note Subjective Pt alert and cooperative, sitting in chair upon arrival, agreed to PT/OT cotx Family training. ADL-Treatment PT & OT answer questions from pt & family over Family Training items including use of Lift Chair, Shower Chair vs Tub Transfer Bench, Proper Transfer into Shower, Adaptive Equipment, & Grab Bars. Pt TF to standing and amb to Big Shower room for Tub Transfer Bench practice then Car Transfer practice before returning to room to use BR then rest in room at end of tx. All needs met, call light in hand. Therapy Code Descriptions/Definitions Functional [place] Measure: 0=Not Assessed/NA 4=Minimal Assistance 1=Total Assistance 5=Supervision or Setup 2=Maximal Assistance 6=Modified [place] 3=Moderate Assistance 7=Complete IndependenceSCALE: Activities may be completed with or without assistive devices. 1-Kmpiqrtehz-kolmuhy completes the activity by him/herself with no assistance from a helper. 5-Set-up or Clean-up Assistance-helper sets up or cleans up; patient completes activity. [place] assists only prior to or following the activity. 4-Supervision or Touching Assistance-helper provides verbal cues and/or touching/steadying and/or contact guard assistance as patient completes activity. Assistance may be provided throughout the activity or intermittently. 3-Partial/Moderate Assistance-helper does LESS THAN HALF the effort. [place] lifts, holds or supports trunk or limbs, but provides less than half the effort. 2-Substantial/Maximal Assistance-helper does MORE THAN HALF the effort. [place] lifts or holds trunk or limbs and provides more than half the effort. 8-Rakmdirts-nivejx does ALL the effort. Patient does none of the effort to complete the activity. Or, the assistance of 2 or more helpers is required for the patient to complete the activity. If activity was not attempted, code reason: 7-Patient Refused. 9-Not Applicable-not attempted and the patient did not perform the activity before the current illness, exacerbation or injury. 10-Not Attempted due to Environmental Limitations-(lack of equipment, weather restraints, etc.). 88-Not Attempted due to Medical Conditions or Safety Concerns. Education OT Patient Education: Home exercise program, Instructions to caregiver, Progress toward Goal/Update tx plan, Purpose of tx/functional activities, Transfer techniques, Use of adapted equipment Teaching Recipient: Patient, Family Teaching Methods: Demonstration, Discussion Response to Teaching: Verbalize Understanding OT Short Term Goals Short Term Goals Time Frame: Mar 14, 2023 Eatin Oral hygiene: 6 Upper body dressin OT Scrap Bunch Maker Goals Scrap Bunch Maker Goals Time Frame: Apr 03, 2023 Acute change in mental status: 0 Inattention: 0 Disorganized thinkin Altered level of consciousness: 0 Eating (QC): 6 Oral Hygiene (QC): 6 Toileting Hygiene (QC): 6 Shower/Bathe Self (QC): 6 Upper Body Dressing (QC): 6 Lower Body Dressing (QC): 6 On/Off Footwear (QC): 6 1=Demonstrate adherence to instructed precautions during ADL tasks. 2=Patient will verbalize/demonstrate understanding of assistive devices/modifications for ADL. 3=Patient will improve strength/tolerance for activity to enable patient to perform ADL's. OT Education/Plan Discharge Recommendations Plan/Recommendations: Continue POC Treatment Plan/Plan of Care Patient would benefit from OT for education, treatment and training to promote independence in ADL's, mobility, safety and/or upper extremity function for ADL's. Plan of Care: ADL Retraining, Caregiver Training, Cognitive Retraining, Concurrent Therapy, Functional Mobility, Group Exercise/Act as Ind Treatment Duration: Mar 09, 2023 Frequency: Modified Program (IRF) Estimated Hrs Per Day: Other Agreement: Yes Rehab Potential: Good Time Start Time: 08:00 Stop Time: 09:00 DATE: Mar 12, 2023 Total Time Billed (hr/min): 60 Billed Treatment Time 1 visit ADL (15m) FA (45m) Elsie Hooks COTA Mar 12, 2023 14:56
--- NOTE | 2023-03-12 14:57 | Occupational Ther Daily Note ---
OT Current Status-Daily Note Subjective Pt seen in room, up in recliner, agreeable to OT. No pain mentioned. Appearance Alert, cooperative ADL-Treatment Therapy Code Descriptions/Definitions Functional [place] Measure: 0=Not Assessed/NA 4=Minimal Assistance 1=Total Assistance 5=Supervision or Setup 2=Maximal Assistance 6=Modified [place] 3=Moderate Assistance 7=Complete IndependenceSCALE: Activities may be completed with or without assistive devices. 3-Rvtynlaoml-epjdlik completes the activity by him/herself with no assistance from a helper. 5-Set-up or Clean-up Assistance-helper sets up or cleans up; patient completes activity. [place] assists only prior to or following the activity. 4-Supervision or Touching Assistance-helper provides verbal cues and/or touching/steadying and/or contact guard assistance as patient completes acti vity. Assistance may be provided throughout the activity or intermittently. 3-Partial/Moderate Assistance-helper does LESS THAN HALF the effort. [place] lifts, holds or supports trunk or limbs, but provides less than half the effort. 2-Substantial/Maximal Assistance-helper does MORE THAN HALF the effort. [place] lifts or holds trunk or limbs and provides more than half the effort. 1-Hnzqkotos-zxuaba does ALL the effort. Patient does none of the effort to complete the activity. Or, the assistance of 2 or more helpers is required for the patient to complete the activity. If activity was not attempted, code reason: 7-Patient Refused. 9-Not Applicable-not attempted and the patient did not perform the activity before the current illness, exacerbation or injury. 10-Not Attempted due to Environmental Limitations-(lack of equipment, weather restraints, etc.). 88-Not Attempted due to Medical Conditions or Safety Concerns. Other Treatment Pt completed 12 reps of 5 different bilateral UE exercises using green (hard resistance) theraband, following along with written exercise sheet. Exercises are to increase UE strength and endurance as needed for transfers and ADLs. Pt needed occasional physical or verbal assistance to do some of the exercises correctly but, for the most part, did them without help. He completed 2 sets of 12 exercises, with less assistance needed after education. Pt left up in recliner, all needs met. Education OT Patient Education: Exercise program, Purpose of tx/functional activities Teaching Recipient: Patient Teaching Methods: Demonstration, Discussion Response to Teaching: Verbalize Understanding, Return Demonstration, Reinforcement Needed OT Short Term Goals Short Term Goals Time Frame: Mar 14, 2023 Eatin Oral hygiene: 6 Upper body dressin OT Care Home Goals Orthotic Aide Goals Time Frame: Apr 03, 2023 Acute change in mental status: 0 Inattention: 0 Disorganized thinkin Altered level of consciousness: 0 Eating (QC): 6 Oral Hygiene (QC): 6 Toileting Hygiene (QC): 6 Shower/Bathe Self (QC): 6 Upper Body Dressing (QC): 6 Lower Body Dressing (QC): 6 On/Off Footwear (QC): 6 1=Demonstrate adherence to instructed precautions during ADL tasks. 2=Patient will verbalize/demonstrate understanding of assistive devices/modifications for ADL. 3=Patient will improve strength/tolerance for activity to enable patient to perform ADL's. OT Education/Plan Discharge Recommendations Plan/Recommendations: Continue POC Treatment Plan/Plan of Care Patient would benefit from OT for education, treatment and training to promote independence in ADL's, mobility, safety and/or upper extremity function for ADL's. Plan of Care: ADL Retraining, Caregiver Training, Cognitive Retraining, Concurrent Therapy, Functional Mobility, Group Exercise/Act as Ind Treatment Duration: Mar 09, 2023 Frequency: Modified Program (IRF) Estimated Hrs Per Day: Other Agreement: Yes Rehab Potential: Good Time Start Time: 13:30 Stop Time: 14:00 DATE: Mar 12, 2023 Total Time Billed (hr/min): 30 Billed Treatment Time visit, 30 minutes exercise JORGE L SIM OT Mar 12, 2023 14:56
--- NOTE | 2023-03-12 15:06 | Diagnostic Imaging Report ---
INDICATION: Abnormal lung sounds. FINDINGS: There are patchy bibasilar infiltrates. There is some cardiomegaly and mild venous congestion. No pneumothorax. Mediastinum is unremarkable. Pacemaker overlies left hemithorax. IMPRESSION: Patchy bibasilar pulmonary infiltrates right greater than left. Cardiomegaly and mild central pulmonary venous congestion. Dictated by: Dictated on workstation # [id number]
[2023-03-12 18:58] VITALS: BP 109/56
[2023-03-12 20:33] VITALS: BP 114/69
[2023-03-13] MEDS: CEFEPIME INJECTION 1,000 MG in NS (IVPB) 50 ML IV SCH ×3 (03:24→20:05)
[2023-03-13] MEDS: meTOprolol TARTRATE 50 MG (LOPRESSOR) TAB PO SCH ×3 (03:25→20:04)
--- NOTE | 2023-03-13 06:02 | PM&R Progress Note ---
Subjective HPI/CC On Admission Date Seen by Provider: Mar 13, 2023 Time Seen by Provider: 12:00 Subjective/Events-last exam 03/13/2023: Much improved status DC tomorrow Off O2 Awaiting UCx results 03/12/2023: Patient doing a little better Pseudomonas noted on urinalysis and urine culture Cefepime started Patient doing well otherwise Chest x-ray checking due to crackles 03/11/2023: Patient doing well Urinary complaints reported We will check urine in and out cath Weaned down oxygen 03/10/2023: Patient doing well Remains on oxygen Eating and drinking better Bowel regimen maintained No concerns 03/09/2023: Patient doing well Maintained on oxygen Incentive spirometer provided Supportive care we will continue Bowels are moving 03/08/2023: Patient doing a lot better Had a large bowel movement Oxygen maintained Supportive care we will continue Review of Systems General: Fatigue, Malaise Objective Exam Vital Signs Vital Signs Date Time Temp Pulse Resp B/P (MAP) Pulse Ox O2 Delivery O2 Flow Rate FiO2 03/14/23 03:00 70 18 105/55 (72) 95 Room Air 03/13/23 19:47 36.3 03/13/23 09:00 2.00 Capillary Refill : General Appearance: No Apparent Distress, WD/WN, Chronically ill, Thin HEENT: PERRL/EOMI, Normal ENT Inspection, Pharynx Normal Neck: Full Range of Motion, Normal Inspection, Non Tender, Supple, Carotid Bruit Respiratory: Chest Non Tender, Lungs Clear, No Accessory Muscle Use, No Respiratory Distress, Crackles, Decreased Breath Sounds Cardiovascular: Regular Rate, Rhythm, No Edema, No Gallop, No JVD, No Murmur, Normal Peripheral Pulses Gastrointestinal: Normal Bowel Sounds, No Organomegaly, No Pulsatile Mass, Non Tender, Soft Back: Normal Inspection, No CVA Tenderness, No Vertebral Tenderness Extremity: Normal Capillary Refill, Normal Inspection, Normal Range of Motion, Non Tender, No Calf Tenderness, No Pedal Edema Neurologic/Psychiatric: Alert, Oriented x3, No Motor/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, jewel bearing driller II- XII Norm as Tested, Abnormal Gait, Depressed Affect, Motor Weakness (Severe weakness of all extremities 3/5) Skin: Normal Color, Warm/Dry Lymphatic: No Adenopathy Results/Procedures Lab Patient resulted labs reviewed. FIM Transfers Therapy Code Descriptions/Definitions Functional [place] Measure: 0=Not Assessed/NA 4=Minimal Assistance 1=Total Assistance 5=Supervision or Setup 2=Maximal Assistance 6=Modified [place] 3=Moderate Assistance 7=Complete IndependenceSCALE: Activities may be completed with or without assistive devices. 7-Vsqecmdhvm-ohiakpl completes the activity by him/herself with no assistance from a helper. 5-Set-up or Clean-up Assistance-helper sets up or cleans up; patient completes activity. [place] assists only prior to or following the activity. 4-Supervision or Touching Assistance-helper provides verbal cues and/or touching/steadying and/or contact guard assistance as patient completes activit y. Assistance may be provided throughout the activity or intermittently. 3-Partial/Moderate Assistance-helper does LESS THAN HALF the effort. [place] lifts, holds or supports trunk or limbs, but provides less than half the effort. 2-Substantial/Maximal Assistance-helper does MORE THAN HALF the effort. [place] lifts or holds trunk or limbs and provides more than half the effort. 7-Eiivhzdlh-esnsca does ALL the effort. Patient does none of the effort to complete the activity. Or, the assistance of 2 or more helpers is required for the patient to complete the activity. If activity was not attempted, code reason: 7-Patient Refused. 9-Not Applicable-not attempted and the patient did not perform the activity before the current illness, exacerbation or injury. 10-Not Attempted due to Environmental Limitations-(lack of equipment, weather restraints, etc.). 88-Not Attempted due to Medical Conditions or Safety Concerns. Roll Left to Right (QC): 5 (with bedrail) Sit to Lying (QC): 5 Sit to Stand (QC): 5 Chair/Bbd-nn-Eqatj Xfer(QC): 4 (CGA with FWW) Car Transfer (QC): 3 (min (A) with FWW and v.c. for hand placement) Gait Training Does the Patient Walk?: Yes Distance: 180', 100' x2 Walk 10 feet (QC): 5 Walk 50 ft with 2 Turns(QC): 5 Walk 150 ft (QC): 5 Walking 10ft/uneven surface-QC: 3 (Min (A) with FWW) Gait Persons Needed: 1 Gait Assistive Device: FWW Wheelchair Training Does the Pt Use a Wheelchair?: Yes Distance: 50 Wheel 50 ft with 2 turns (QC): 3 (Min (A) to coordinate UE's and LE's together - wants to hold feet off floor, endurance limits UE propulsion) Wheel 150 ft (QC): 88 (endurance deficit limits distance) Stair Training 1 Step (curb) (QC): 3 (min (A) with FWW with cues for sequence) 4 Steps (QC): 3 (min (A) with FWW with cues for sequence) 12 Steps (QC): 88 (NT due to endurance deficit) Balance Picking up an Object (QC): 5 (using chief executive or managing director. 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 Status postacute hypoxic respiratory failure due to COVID with bilateral infiltrates Atrial fibrillation History of ischemic colitis Advanced age Urinary frequency with urine culture showing Pseudomonas placed on cefepime on 03/12/2023 Plan: Supportive care Aggressive rehab Fall risk Wean oxygen 03/08/2023: Supportive care Maintain on oxygen DC catheter tomorrow morning 03/09/2023: Supportive care 03/10/2023: Supportive care Monitor closely 03/11/2023: Wean oxygen Check urine 03/12/2023: UTI treatment Check chest x-ray 03/13/2023: DC home Review UCx sensitivity (1) Myopathy DAISY AYON DO Mar 13, 2023 06:02
[2023-03-13] MEDS: LACTOBACILLUS ACIDOPHILUS (PROBIOTIC) CAPSULE PO SCH ×4 (06:03→20:39)
[2023-03-13 08:00] VITALS: BP 109/52
--- NOTE | 2023-03-13 09:02 | Occupational Ther Daily Note ---
OT Current Status-Daily Note Subjective Pt sitting in chair upon arrival, alert and cooperative, agreed to OT. ADL-Treatment Pt ambulated from chair in room to bathroom with FWW, SBA for safety. Pt com pleted toileting with supervision, and then ambulated from toilet in bathroom to shower bench, and doffed all clothing independently. Pt showered/bathed self, independently. After shower, pt dried self off. and transferred out of shower onto a chair in bathroom with FWW, CGA. Pt is supervision for upper and lower body dressing including footwear. Pt ambulated to sink in bathroom, completed oral care and grooming at sink with FWW, supervision. Pt then ambulated back to chair in room with supervision. Therapist monitored o2 stats after shower and pts o2 was 92%. Pts o2 stats 98% after session and sitting in chair. Pt educated once more of HEP and shown theraband worksheet, for home use. Pt was left in chair in room with call light and phone within chair, all needs met. Therapy Code Descriptions/Definitions Functional [place] Measure: 0=Not Assessed/NA 4=Minimal Assistance 1=Total Assistance 5=Supervision or Setup 2=Maximal Assistance 6=Modified [place] 3=Moderate Assistance 7=Complete IndependenceSCALE: Activities may be completed with or without assistive devices. 4-Iitwxugcvb-xqbusqn completes the activity by him/herself with no assistance from a helper. 5-Set-up or Clean-up Assistance-helper sets up or cleans up; patient completes activity. [place] assists only prior to or following the activity. 4-Supervision or Touching Assistance-helper provides verbal cues and/or touching/steadying and/or contact guard assistance as patient completes activity. Assistance may be provided throughout the activity or intermittently. 3-Partial/Moderate Assistance-helper does LESS THAN HALF the effort. [place] lifts, holds or supports trunk or limbs, but provides less than half the effort. 2-Substantial/Maximal Assistance-helper does MORE THAN HALF the effort. [place] lifts or holds trunk or limbs and provides more than half the effort. 3-Zykhegnwd-lgzqbg does ALL the effort. Patient does none of the effort to complete the activity. Or, the assistance of 2 or more helpers is required for the patient to complete the activity. If activity was not attempted, code reason: 7-Patient Refused. 9-Not Applicable-not attempted and the patient did not perform the activity before the current illness, exacerbation or injury. 10-Not Attempted due to Environmental Limitations-(lack of equipment, weather restraints, etc.). 88-Not Attempted due to Medical Conditions or Safety Concerns. Eating (QC): 6 Oral Hygiene (QC): 4 (supervsion) Shower/Bathe Self (QC): 6 Upper Body Dressing (QC): 4 (supervision) Lower Body Dressing (QC): 4 (supervision) On/Off Footwear: 5 Toileting Hygiene (QC): 4 (supervsion) Education OT Patient Education: Energy conservation, Home exercise program, Progress toward Goal/Update tx plan, Purpose of tx/functional activities Teaching Recipient: Patient Teaching Methods: Discussion Response to Teaching: Verbalize Understanding BIMS CAM BIMS Expression of Ideas and Wants: Without Difficulty Understanding Verbal Content: Understands Brief Interview/Mental Status: Yes IRF SANTI BIMS: IRF SANTI BIMS Response (Comments) Value Repitition of Three Words Three 3 Recalls Socks Yes, No Cue Required 2 Recalls Blue Yes, No Cue Required 2 Recalls Bed Yes, No Cue Required 2 Year Correct 3 Month Accurate Within 5 Days 2 Day Correct 1 Total 15 Patient Normally Able to Recal: Current Session, Location of own room, That he/she in a hsp Should Staff Asses. Mental St.: No CAM Mental Status Change/Baseline: 0 Inattention: 0 Disorganized thinkin Altered level of consciousness: 0 OT Short Term Goals Short Term Goals Time Frame: Mar 14, 2023 Eatin Oral hygiene: 6 Upper body dressin OT Mcc Goals Finance Broker Goals Time Frame: Apr 03, 2023 Acute change in mental status: 0 Inattention: 0 Disorganized thinkin Altered level of consciousness: 0 Eating (QC): 6 Oral Hygiene (QC): 6 Toileting Hygiene (QC): 6 Shower/Bathe Self (QC): 6 Upper Body Dressing (QC): 6 Lower Body Dressing (QC): 6 On/Off Footwear (QC): 6 1=Demonstrate adherence to instructed precautions during ADL tasks. 2=Patient will verbalize/demonstrate understanding of assistive devices/modifications for ADL. 3=Patient will improve strength/tolerance for activity to enable patient to perform ADL's. OT Education/Plan Discharge Recommendations Plan/Recommendations: Continue POC Treatment Plan/Plan of Care Patient would benefit from OT for education, treatment and training to promote independence in ADL's, mobility, safety and/or upper extremity function for ADL's. Plan of Care: ADL Retraining, Caregiver Training, Cognitive Retraining, Concurrent Therapy, Functional Mobility, Group Exercise/Act as Ind Treatment Duration: Mar 09, 2023 Frequency: Modified Program (IRF) Estimated Hrs Per Day: Other Agreement: Yes Rehab Potential: Good Time Start Time: 08:00 Stop Time: 09:00 DATE: Mar 13, 2023 Total Time Billed (hr/min): 60 Billed Treatment Time 1 visit ADL 4 (60) Elsie Hooks COTA Mar 13, 2023 09:02
[2023-03-13] MEDS: SENNA W/DOCUSATE (SENOKOT S) TABLET PO SCH ×2 (09:13→20:40)
[2023-03-13] MEDS: PHENAZOPYRIDINE 100 MG (PYRIDIUM) TABLET PO SCH ×3 (09:13→20:04)
[2023-03-13] MEDS: DOCUSATE SODIUM 100 MG (COLACE) CAP PO SCH ×2 (09:14→20:39)
[2023-03-13] MEDS: AMIODARONE 200 MG (CORDARONE) TAB PO SCH (09:14)
[2023-03-13] MEDS: PANTOPRAZOLE 40 MG (PROTONIX) TAB PO SCH (09:14)
[2023-03-13] MEDS: polyethylene glycoL POWDER 17 GM (MIRALAX) PACK PO SCH ×2 (09:14→20:39)
[2023-03-13] MEDS: APIXABAN 5 MG (ELIQUIS) TABLET PO SCH ×2 (09:14→20:39)
--- NOTE | 2023-03-13 11:00 | Physical Therapy Daily Note ---
PT Daily Note-Current Subjective pt was in recliner and willing for therapy. pt left knee did buckle this day ascending stairs but reports no pain.pt was left in recliner with call light and chocolate icecream and all needs met. Pain Section J - Health Conditions 1. Rarely or not at all 2. Occasionally 3. Frequently 4. Almost constantly 8. Unable to answer Pain Effect on Sleep: 1 Pain Interference with Therapy: 2 Pain Interference w/Day-to-Day: 2 Mental Status Patient Orientation: Person, Place, Time, Situation Transfers SCALE: Activities may be completed with or without assistive devices. 6-Oesabcvntn-hnqogkd completes the activity by him/herself with no assistance from a helper. 5-Set-up or Clean-up Assistance-helper sets up or cleans up; patient completes activity. [place] assists only prior to or following the activity. 4-Supervision or Touching Assistance-helper provides verbal cues and/or touching/steadying and/or contact guard assistance as patient completes activity. Assistance may be provided throughout the activity or intermittently. 3-Partial/Moderate Assistance-helper does LESS THAN HALF the effort. [place] lifts, holds or supports trunk or limbs, but provides less than half the effort. 2-Substantial/Maximal Assistance-helper does MORE THAN HALF the effort. [place] lifts or holds trunk or limbs and provides more than half the effort. 8-Ojztnpagj-dxofea does ALL the effort. Patient does none of the effort to complete the activity. Or, the assistance of 2 or more helpers is required for the patient to complete the activity. If activity was not attempted, code reason: 7-Patient Refused. 9-Not Applicable-not attempted and the patient did not perform the activity before the current illness, exacerbation or injury. 10-Not Attempted due to Environmental Limitations-(lack of equipment, weather restraints, etc.). 88-Not Attempted due to Medical Conditions or Safety Concerns. Roll Left & Right (QC): 6 Sit to Lying (QC): 6 Lying to Sitting/Side of Bed(Q: 6 Sit to Stand (QC): 6 Chair/Jra-md-Ngehx Xfer(QC): 6 Toilet Transfer (QC): 6 Car Transfer (QC): 6 Weight Bearing Right Lower Extremity: Right Full Weight Bearing Left Lower Extremity: Left Full Weight Bearing (R) knee is arthritic and frequently "catches" or "gives away" Gait Training Walk 10 feet (QC): 6 Walk 50 ft with 2 Turns(QC): 6 Walk 150 ft (QC): 6 Walking 10ft/uneven surface-QC: 6 Gait Assistive Device: Walker Standard Stair Training 1 Step (curb) (QC): 6 4 Steps (QC): 4 12 Steps (QC): 4 Exercises NuStep Minutes: 16 NuStep Workload: 1 Treatments Pt preformed all QC's independently except for more stairs as pt is at a 4 with CGA secondary to left knee buckling this day Assessment Current Status: Good Progress PT Mcc Goals Mcc Goals PT Material Handler Loader Goals Time Frame: Mar 21, 2023 Roll Left & Right (QC): 6 Sit to Lying (QC): 6 Lying-Sitting on Side/Bed(QC): 6 Sit to Stand (QC): 6 Chair/Jtg-eu-Gdoxr Xfer(QC): 6 (/c FWW) Toilet Transfer (QC): 6 Car Transfer (QC): 6 Does the Patient Walk: Yes Walk 10 feet (QC): 6 (/c FWW) Walk 50ft with 2 Turns (QC): 6 (/c FWW with gait speed of .26 m/sec or better ) Walk 150 ft (QC): 6 (/c FWW) Walking 10ft on Uneven Surface: 6 (/c FWW) 1 Step (curb) (QC): 6 (/c FWW) 4 Steps (QC): 6 (with hand rails) 12 Steps (QC): 6 (/c handrails) Picking up an Object (QC): 6 (with director quality assurance) Does the Pt use WC or Scooter?: Yes Wheel 50 feet with 2 turns (QC: 6 Type: Manual Wheel 150 feet: 6 Type: Manual PT Plan Treatment/Plan Treatment Plan: Continue Plan of Care Treatment Plan: Bed Mobility, Education, Functional Activity [place], Functional Strength, Group Therapy, Gait, Safety, Therapeutic Exercise, Transfers Treatment Duration: Mar 21, 2023 Frequency: At least 5 of 7 days/Wk (IRF) Estimated Hrs Per Day: Other (1 - 1.5 hrs per day) Patient and/or Family Agrees t: Yes Time Time In: 0930 Time Out: 1100 DATE: Mar 13, 2023 Total Billed Treatment Time: 90 Total Billed Treatment 1 fa x 4 ex x 2 Rosa Bates AIDS COUNSELOR Mar 13, 2023 11:00
--- NOTE | 2023-03-13 13:50 | Occupational Ther Daily Note ---
OT Current Status-Daily Note Subjective Pt alert, sitting in recliner. Pt agrees to therapy. No c/o pain. Mental Status/Objective Patient Orientation: Person, Place, Time, Situation ADL-Treatment Therapy Code Descriptions/Definitions Functional [place] Measure: 0=Not Assessed/NA 4=Minimal Assistance 1=Total Assistance 5=Supervision or Setup 2=Maximal Assistance 6=Modified [place] 3=Moderate Assistance 7=Complete IndependenceSCALE: Activities may be completed with or without assistive devices. 0-Qmsvvxwwhb-sadswgl completes the activity by him/herself with no assistance f rom a helper. 5-Set-up or Clean-up Assistance-helper sets up or cleans up; patient completes activity. Ida assists only prior to or following the activity. 4-Supervision or Touching Assistance-helper provides verbal cues and/or touching/steadying and/or contact guard assistance as patient completes activity. Assistance may be provided throughout the activity or intermittently. 3-Partial/Moderate Assistance-helper does LESS THAN HALF the effort. Ida lifts, holds or supports trunk or limbs, but provides less than half the effort. 2-Substantial/Maximal Assistance-helper does MORE THAN HALF the effort. Ida lifts or holds trunk or limbs and provides more than half the effort. 7-[place]eg[place]-efxaoh does ALL the effort. Patient does none of the effort to complete the activity. Or, the assistance of 2 or more helpers is required for the patient to complete the activity. If activity was not attempted, code reason: 7-Patient Refused. 9-Not Applicable-not attempted and the patient did not perform the activity before the current illness, exacerbation or injury. 10-Not Attempted due to Environmental Limitations-(lack of equipment, weather restraints, etc.). 88-Not Attempted due to Medical Conditions or Safety Concerns. Other Treatment Pt completed B UE exercises using 10# resistance flexbar to increase strength for daily functional tasks. Skilled instructions for correct technique and modifications when needed. After therapy, pt sitting in recliner with call light/phone in reach. All needs met in room. OT Short Term Goals Short Term Goals Time Frame: Mar 14, 2023 Eatin Oral hygiene: 6 Upper body dressin OT Newspaper Managing Editor Goals Correction Goals Time Frame: Apr 03, 2023 Acute change in mental status: 0 Inattention: 0 Disorganized thinkin Altered level of consciousness: 0 Eating (QC): 6 Oral Hygiene (QC): 6 Toileting Hygiene (QC): 6 Shower/Bathe Self (QC): 6 Upper Body Dressing (QC): 6 Lower Body Dressing (QC): 6 On/Off Footwear (QC): 6 1=Demonstrate adherence to instructed precautions during ADL tasks. 2=Patient will verbalize/demonstrate understanding of assistive devices/modifications for ADL. 3=Patient will improve strength/tolerance for activity to enable patient to perform ADL's. OT Education/Plan Problem List/Assessment Assessment: Decreased Activ Tolerance, Decreased Safety Aware, Impaired Self- Care Skills Discharge Recommendations Plan/Recommendations: Continue POC Treatment Plan/Plan of Care Patient would benefit from OT for education, treatment and training to promote independence in ADL's, mobility, safety and/or upper extremity function for ADL's. Plan of Care: ADL Retraining, Caregiver Training, Cognitive Retraining, Concurrent Therapy, Functional Mobility, Group Exercise/Act as Ind Treatment Duration: Mar 09, 2023 Frequency: Modified Program (IRF) Estimated Hrs Per Day: Other Agreement: Yes Rehab Potential: Good Time Start Time: 11:30 Stop Time: 12:00 DATE: Mar 13, 2023 Total Time Billed (hr/min): 30 Billed Treatment Time 1 visit-EX 2 (30 min) EVERARDO HOLBROOK Mar 13, 2023 13:50
[2023-03-13 19:47] VITALS: BP 116/56
[2023-03-14 03:00] VITALS: BP 105/55
[2023-03-14] MEDS: CEFEPIME INJECTION 1,000 MG in NS (IVPB) 50 ML IV SCH (03:29)
[2023-03-14] MEDS: meTOprolol TARTRATE 50 MG (LOPRESSOR) TAB PO SCH (03:29)
[2023-03-14] MEDS: LACTOBACILLUS ACIDOPHILUS (PROBIOTIC) CAPSULE PO SCH (06:17)
[2023-03-14] MEDS ORDERED: LACT1CAP7 PO (07:12)
[2023-03-14] MEDS ORDERED: PANT40TA2 PO (07:12)
[2023-03-14] MEDS ORDERED: TROS20TA3 PO (07:12)
[2023-03-14] MEDS ORDERED: AMIO200T65 PO (07:12)
[2023-03-14] MEDS ORDERED: LEVO750T PO (07:12)
[2023-03-14] MEDS ORDERED: APIX5TAB PO (07:12)
[2023-03-14] MEDS ORDERED: METO-451 PO (07:12)
--- NOTE | 2023-03-14 07:13 | Discharge Summary ---
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 Status postacute hypoxic respiratory failure due to COVID with bilateral infiltrates Atrial fibrillation History of ischemic colitis Advanced age Urinary frequency with urine culture showing Pseudomonas placed on cefepime on 03/12/2023 Plan: Supportive care Aggressive rehab Fall risk Wean oxygen 03/08/2023: Supportive care Maintain on oxygen DC catheter tomorrow morning 03/09/2023: Supportive care 03/10/2023: Supportive care Monitor closely 03/11/2023: Wean oxygen Check urine 03/12/2023: UTI treatment Check chest x-ray 03/13/2023: DC home Review UCx sensitivity (1) Myopathy Discharge Summary Discharge Physical Examination Allergies: Coded Allergies: No Known Drug Allergies (Unverified , 03/12/23) Vitals & I&Os Vital Signs Date Time Temp Pulse Resp B/P (MAP) Pulse Ox O2 Delivery O2 Flow Rate FiO2 03/14/23 09:00 Room Air 03/14/23 07:30 36.3 73 16 109/58 (75) 91 03/14/23 06:06 0.00 General Appearance: Alert, Oriented X3, Cooperative Respiratory: Clear to Auscultation Cardiovascular: Regular Rate Psych/Mental Status: Mental Status NL Hospital Course Was the Problem List Reviewed?: Yes Patient had an uneventful hospital course after he was admitted for COVID pneumonia and respiratory failure. Oxygen was ultimately weaned 1 day before discharge. Cough was improved. Labs remained stable. UTI diagnosed with Pseudomonas and although sensitivity was not completed by time of discharge it did have mixed harry imminent in a very low level infection so he was placed on Levaquin for an additional 4 doses. Home health will see patient. Labs (last 24 hrs) Laboratory Tests 03/08/23 05:55: White Blood Count 8.9, Red Blood Count 3.54L, Hemoglobin 10.2L, Hematocrit 32L, Mean Corpuscular Volume 90, Mean Corpuscular Hemoglobin 29, Mean Corpuscular Hemoglobin Concent 32, Red Cell Distribution Width 16.2H, Platelet Count 267, Mean Platelet Volume 10.3, Immature Granulocyte % (Auto) 1, Neutrophils (%) (Auto) 68, Lymphocytes (%) (Auto) 18, Monocytes (%) (Auto) 9, Eosinophils (%) (Auto) 2, Basophils (%) (Auto) 1, Neutrophils # (Auto) 6.0, Lymphocytes # (Auto) 1.6, Monocytes # (Auto) 0.8, Eosinophils # (Auto) 0.2, Basophils # (Auto) 0.1, Immature Granulocyte # (Auto) 0.1, Sodium Level 135, Potassium Level 4.7, Chloride Level 102, Carbon Dioxide Level 26, Anion Gap 7, Blood Urea Nitrogen 12, Creatinine 0.62, Estimat Glomerular Filtration Rate 91, BUN/Creatinine Ratio 19, Glucose Level 87, Calcium Level 8.6, Corrected Calcium 9.8, Total Bilirubin 0.3, Aspartate Amino Transf (AST/SGOT) 21, Alanine Aminotransferase (ALT/SGPT) 15, Alkaline Phosphatase 88, Total Protein 6.1L, Albumin 2.5L 03/11/23 13:48: Urine Color YELLOW, Urine Clarity CLEAR, Urine pH 6.5, Urine Specific [place] <=1.005, Urine Protein NEGATIVE, Urine Glucose (UA) NEGATIVE, Urine Ketones NEGATIVE, Urine Nitrite POSITIVEH, Urine Bilirubin NEGATIVE, Urine Urobilinogen 0.2, Urine Leukocyte Esterase 1+H, Urine RBC (Auto) TRACE-IH, Urine RBC RARE, Urine WBC 5-10H, Urine Squamous Epithelial Cells NONE, Urine Crystals NONE, Urine Bacteria FEWH, Urine Casts NONE, Urine Mucus NEGATIVE, Urine Culture Indicated YES Microbiology 03/11/23 Urine Culture - Preliminary, Resulted Pseudomonas aeruginosa Pending Labs Microbiology Date/Time Source Procedure Growth Status 03/11/23 13:48 Urine Straight Cath, In/Out Urine Culture - Preliminary Pseudomonas aeruginosa Resulted Laboratory Tests 03/08/23 05:55: White Blood Count 8.9, Red Blood Count 3.54, Hemoglobin 10.2, Hematocrit 32, Mean Corpuscular Volume 90, Mean Corpuscular Hemoglobin 29, Mean Corpuscular Hemoglobin Concent 32, Red Cell Distribution Width 16.2, Platelet Count 267, Mean Platelet Volume 10.3, Immature Granulocyte % (Auto) 1, Neutrophils (%) (Auto) 68, Lymphocytes (%) (Auto) 18, Monocytes (%) (Auto) 9, Eosinophils (%) (Auto) 2, Basophils (%) (Auto) 1, Neutrophils # (Auto) 6.0, Lymphocytes # (Auto) 1.6, Monocytes # (Auto) 0.8, Eosinophils # (Auto) 0.2, Basophils # (Auto) 0.1, Immature Granulocyte # (Auto) 0.1, Sodium Level 135, Potassium Level 4.7, Chloride Level 102, Carbon Dioxide Level 26, Anion Gap 7, Blood Urea Nitrogen 12, Creatinine 0.62, Estimat Glomerular Filtration Rate 91, BUN/Creatinine Ratio 19, Glucose Level 87, Calcium Level 8.6, Corrected Calcium 9.8, Total Bilirubin 0.3, Aspartate Amino Transf (AST/SGOT) 21, Alanine Aminotransferase (ALT/SGPT) 15, Alkaline Phosphatase 88, Total Protein 6.1, Albumin 2.5 03/11/23 13:48: Urine Color YELLOW, Urine Clarity CLEAR, Urine pH 6.5, Urine Specific [place] <=1.005, Urine Protein NEGATIVE, Urine Glucose (UA) NEGATIVE, Urine Ketones NEGATIVE, Urine Nitrite POSITIVE, Urine Bilirubin NEGATIVE, Urine Urobilinogen 0.2, Urine Leukocyte Esterase 1+, Urine RBC (Auto) TRACE-I, Urine RBC RARE, Urine WBC 5-10, Urine Squamous Epithelial Cells NONE, Urine Crystals NONE, Urine Bacteria FEW, Urine Casts NONE, Urine Mucus NEGATIVE, Urine Culture Indicated YES Discharge Home Medications: Active Scripts Active Levofloxacin 750 Mg Tablet 750 Mg PO DAILY@1100 Trospium Chloride 20 Mg Tablet 20 Mg PO BID Acidophilus-Pectin Capsule (Lactobacillus Acidophilus/Pect) 75 Million Cell-100 Mg Capsule 1 Each PO AC Amiodarone HCl 200 Mg Tablet 200 Mg PO DAILY Eliquis (Apixaban) 5 Mg Tablet 5 Mg PO BID Lopressor (Metoprolol Tartrate) 50 Mg Tablet 25 Mg PO BID Protonix (Pantoprazole Sodium) 40 Mg Tablet.dr 40 Mg PO DAILY Reported Theragran-M Premier 50+ Caplet (Mv-Mn/FA/Coq10/Lycopene/Lutein) 400 Mcg-250 Mcg- 375 Mcg-250 Mcg Tablet 1 Each PO Instructions to patient/family Please see electronic discharge instructions given to patient. Diagnosis/Problems Diagnosis/Problems (1) Myopathy DAISY AYON DO Mar 14, 2023 07:13
--- NOTE | 2023-03-14 07:13 | D/C HH Face to Face Order ---
D/C HH Face to Face Orders Reconcile Patient Problems Problems Reviewed?: Yes Instructions for Patient HH Patient Instructions/FollowUp: pcp 1 week Physician to follow Patient: pcp Discharge Diet for Home: No Restrictions Patient Problems: Post COVID AF Patient Data-Allergies,Ht & Wt Patient Allergies: Coded Allergies: No Known Drug Allergies (Unverified , 03/12/23) Home Health Need/Face to Face Date of Face to Face: Mar 14, 2023 Clinical Findings: Generalized weakness and fatigue, Instability, Muscle weakness, Shortness of breath, Unsteady gait I have seen Pt [id number]: Yes Discharged To: Home Diagnosis/Conditions: Post COVID Patient is Homebound due to: Esme fall risk due to instabilty, Muscle weakness, Shortness of breath/distress Homebound Status Due to the above stated illness, injury or surgical procedure (medical condition or diagnosis) and associated clinical findings, the patient is homebound because of his/her inability to leave home except with aid of a supportive device and/or person AND leaving the home requires a considerable and taxing effort or is medically contraindicated. Pt req the following assistanc: Walker Home Health Nursing Orders Home Health Services Order: Nursing Services, Scrap Stripper Hand-Evaluate & Treat, Physical Therapy-Evaluate & Treat Certify Stmt I certify that this patient is under my care and that I, a nurse practitioner or a physician; a law office assistant working with me, had a face to face encounter that - meets the physician face to face encounter requirements with this patient as dated. DAISY AYON DO Mar 14, 2023 07:13
[2023-03-14 07:30] VITALS: BP 109/58
[2023-03-14] MEDS: APIXABAN 5 MG (ELIQUIS) TABLET PO SCH (09:23)
[2023-03-14] MEDS: PHENAZOPYRIDINE 100 MG (PYRIDIUM) TABLET PO SCH (09:23)
[2023-03-14] MEDS: AMIODARONE 200 MG (CORDARONE) TAB PO SCH (09:23)
[2023-03-14] MEDS: PANTOPRAZOLE 40 MG (PROTONIX) TAB PO SCH (09:23)
[2023-03-14] MEDS: DOCUSATE SODIUM 100 MG (COLACE) CAP PO SCH (09:24)
[2023-03-14] MEDS: SENNA W/DOCUSATE (SENOKOT S) TABLET PO SCH (09:30)
--- NOTE | 2023-03-16 15:26 | Therapy Team Discharge Summary ---
Therapy Discharge Summary Discharge Recommendations Date of Discharge Mar 14, 2023 at 10:00 Physical Therapy Roll Left to Right (QC): 6 Sit to Lying (QC): 6 Lying to Sitting/Side of Bed(Q: 6 Sit to Stand (QC): 6 Chair/Ftr-hg-Hpfjp Xfer(QC): 6 Toilet Transfer (QC): 4 Car Transfer (QC): 6 Does the Patient Walk: Yes Mode of Locomotion: Walk Anticipated Mode of Locomotion: Walk Walk 10 feet (QC): 6 Walk 50 ft with 2 Turns(QC): 6 Walk 150 ft (QC): 6 Walking 10ft on uneven surface: 6 Distance: 76', 50' Gait Assistive Device: Walker Standard Does the Pt Use a Wheelchair: Yes Wheelchair Distance: 50 Wheel 50 ft with 2 turns (QC): 3 (Min (A) to coordinate UE's and LE's together - wants to hold feet off floor, endurance limits UE propulsion) Wheel 150 ft (QC): 88 (endurance deficit limits distance) 1 Step (curb) (QC): 6 4 Steps (QC): 4 12 Steps (QC): 4 Walking Assistive Device: Walker Balance Sitting Static: Good Balance Sitting Dynamic: Fair Balance-Standing Static: Good Picking up an Object (QC): 5 (using regulatory affairs consultant. ) Occupational Therapy 87-year-old male clinic patient of Dr Ortiz Zepeda in [place] who presents from [facility] following an extensive hospital stay which include acute hypoxic respiratory failure secondary to COVID with bilateral infiltrates status post intubation until extubated on 02/02/2023 transition to BiPAP. Small bowel obstruction, NG tube, titrated 02 from 10 liters mask to 2 liters NC who presents to the inpatient rehab unit in need of aggressive rehab. He has a history of esophageal stenosis with stricture status post EGD and dilatation on 12/10/2022. He is eating a regular diet. He does have a history of ischemic colitis but that seems to be stable. He does have atrial fibrillation on a miodarone and anticoagulation. Prior level of functioning was independent without any AD. On OT evaluation he required moderate assistance w/ ADLS and transfers. Patient has partaily met goals w/ improvement to require minimal- modified independent assitance w/ ADLs and transfers. DC OT. Decreased Activ Tolerance, Decreased Safety Aware, Impaired Self-Care Skills Eating (QC): 6 Oral Hygiene (QC): 4 (supervsion) Shower/Bathe Self (QC): 6 Upper Body Dressing (QC): 4 (supervision) Lower Body Dressing (QC): 4 (supervision) On/Off Footwear (QC): 5 Toileting Hygiene (QC): 4 (supervsion) PT Rfid Manager Goals Rfid Manager Goals PT Fdc Goals Time Frame: Mar 21, 2023 Roll Left to Right (QC): 6 Sit to Lying (QC): 6 Lying-Sitting on Side/Bed(QC): 6 Sit to Stand (QC): 6 Chair/Qfn-uj-Hrtkx Xfer(QC): 6 (/c FWW) Toilet/Commode Transfer (QC): 6 Car Transfer (QC): 6 Does the Patient Walk: Yes Walk 10 feet (QC): 6 (/c FWW) Walk 10ft-Uneven Surface(QC): 6 (/c FWW) Walk 50ft with 2 Turns (QC): 6 (/c FWW with gait speed of .26 m/sec or better ) Walk 150 ft (QC): 6 (/c FWW) Does the Pt use WC or Scooter?: Yes Wheel 50 feet with 2 turns (QC: 6 Type: Manual Wheel 150 feet: 6 Type: Manual 1 Step (curb) (QC): 6 (/c FWW) 4 Steps (QC): 6 (with hand rails) 12 Steps (QC): 6 (/c handrails) Picking up an Object (QC): 6 (with regulatory affairs consultant) OT Fdc Goals Rfid Manager Goals Time Frame: Apr 03, 2023 Acute change in mental status: 0 Inattention: 0 Disorganized thinkin Altered level of consciousness: 0 Eating (QC): 6 Oral Hygiene (QC): 6 Toileting Hygiene (QC): 6 Shower/Bathe Self (QC): 6 Upper Body Dressing (QC): 6 Lower Body Dressing (QC): 6 On/Off Footwear (QC): 6 1=Demonstrate adherence to instructed precautions during ADL tasks. 2=Patient will verbalize/demonstrate understanding of assistive devices/modifications for ADL. 3=Patient will improve strength/tolerance for activity to enable patient to perform ADL's. ASHWIN PRATT OT Mar 16, 2023 15:26
--- NOTE | 2023-03-16 15:43 | Therapy Team Discharge Summary ---
Therapy Discharge Summary Discharge Recommendations Date of Discharge Mar 14, 2023 at 10:00 Physical Therapy Patient admitted to ARU 03/07/23 for critical illness myopathy. Patient also had (R) OA for which he wore a brace - this knee would buckle occasionally, moreso with higher level activities, which led to CGA for 4 and 12 steps. Otherwise, patient was (I) with all other upright mobility with a FWW and was (I) with bed mobility at d/c. O2 sats also remained about 90% without supplemental O2. Roll Left to Right (QC): 6 Sit to Lying (QC): 6 Lying to Sitting/Side of Bed(Q: 6 Sit to Stand (QC): 6 Chair/Aek-bc-Lslko Xfer(QC): 6 Toilet Transfer (QC): 6 Car Transfer (QC): 6 Does the Patient Walk: Yes Mode of Locomotion: Walk Anticipated Mode of Locomotion: Walk Walk 10 feet (QC): 6 Walk 50 ft with 2 Turns(QC): 6 Walk 150 ft (QC): 6 Walking 10ft on uneven surface: 6 Distance: at least 150' Gait Assistive Device: Walker Standard Does the Pt Use a Wheelchair: No Wheelchair Distance: not at D/C Wheel 50 ft with 2 turns (QC): 9 Wheel 150 ft (QC): 9 1 Step (curb) (QC): 6 4 Steps (QC): 4 12 Steps (QC): 4 Walking Assistive Device: Walker Balance Sitting Static: Good Balance Sitting Dynamic: Good Balance-Standing Static: Good Picking up an Object (QC): 6 (with manager program management) Occupational Therapy Decreased Activ Tolerance, Decreased Safety Aware, Impaired Self-Care Skills Eating (QC): 6 Oral Hygiene (QC): 4 (supervsion) Shower/Bathe Self (QC): 6 Upper Body Dressing (QC): 4 (supervision) Lower Body Dressing (QC): 4 (supervision) On/Off Footwear (QC): 5 Toileting Hygiene (QC): 4 (supervsion) PT Mcc Goals Mcc Goals PT Architecture Technician Goals Time Frame: Mar 21, 2023 Roll Left to Right (QC): 6 Sit to Lying (QC): 6 Lying-Sitting on Side/Bed(QC): 6 Sit to Stand (QC): 6 Chair/Zvu-jh-Xbvej Xfer(QC): 6 (/c FWW) Toilet/Commode Transfer (QC): 6 Car Transfer (QC): 6 Does the Patient Walk: Yes Walk 10 feet (QC): 6 (/c FWW) Walk 10ft-Uneven Surface(QC): 6 (/c FWW) Walk 50ft with 2 Turns (QC): 6 (/c FWW with gait speed of .26 m/sec or better ) Walk 150 ft (QC): 6 (/c FWW) Does the Pt use WC or Scooter?: Yes Wheel 50 feet with 2 turns (QC: 6 Type: Manual Wheel 150 feet: 6 Type: Manual 1 Step (curb) (QC): 6 (/c FWW) 4 Steps (QC): 6 (with hand rails) 12 Steps (QC): 6 (/c handrails) Picking up an Object (QC): 6 (with manager program management) OT Architecture Technician Goals Mcc Goals Time Frame: Apr 03, 2023 Acute change in mental status: 0 Inattention: 0 Disorganized thinkin Altered level of consciousness: 0 Eating (QC): 6 Oral Hygiene (QC): 6 Toileting Hygiene (QC): 6 Shower/Bathe Self (QC): 6 Upper Body Dressing (QC): 6 Lower Body Dressing (QC): 6 On/Off Footwear (QC): 6 1=Demonstrate adherence to instructed precautions during ADL tasks. 2=Patient will verbalize/demonstrate understanding of assistive devices/modifications for ADL. 3=Patient will improve strength/tolerance for activity to enable patient to perform ADL's. Nadia Willis PT Mar 16, 2023 15:42
== END 2023-03-14 10:00 | disposition home health service (06) | DRG 92 ==
PROVIDERS: ADMIT Internal Medicine; ATTEND Internal Medicine
DX: G72.81 Critical illness myopathy (principal); N39.0 Urinary tract infection, site not specified; R35.0 Frequency of micturition; Z86.16 Personal history of COVID-19; B96.5 Pseudomonas (aeruginosa) (mallei) (pseudomallei) as the cause of diseases classified elsewhere; I48.91 Unspecified atrial fibrillation; Z79.01 Long term (current) use of anticoagulants; Z79.899 Other long term (current) drug therapy
CPT/HCPCS: 36415; 71045; 80053; 81000; 85025; 87077; 87088; 87184; 94761